=== PATIENT | male | born 1960 | race Caucasian/White ===

== ENCOUNTER 2017-06-19 09:58 | Observation (INO) | payer BC, OTHER ==
--- NOTE | 2017-06-19 10:16 | PDOC ---
History of Present Illness <Bright Black - Last Filed: 06/19/17 16:12> - History of Present Illness Initial Comments: 06/19/17 13:26 Pt presents to the ED complaining of the acute onset of blurry vision and diplopia that began today while shoveling snow. Patient denies shortness of breath but does complain of transient and very mild chest pain that occurred mainly when he was straining to lift large shovelfuls of snow. Diplopia is binocular, but patient reports normal vision from his left eye and blurry vision when only his right eye is open. Also complaining of mild headache that is centered around his right eye. Headache was gradual onset and resolved prior to arrival in the ED. Denies diaphoresis, nausea or vomiting. History of DM, managed with metformin, which he took this morning. <Haylie Block - Last Filed: 06/19/17 16:22> - General Chief Complaint: Blurry Vision Stated Complaint: BLURRED VISION, HEADACHE, CHEST PAIN Time Seen by Provider: 06/19/17 10:16 NIH Stroke Scale - Last Known Well Date/Time & Onset Date Last Known Well: 06/19/17 Time Last Known Well: 13:00 - Initial Evaluation Level of consciousness: Alert Ask patient the month and their age: Answers both correctly Ask patient to open & close eyes; make fist and let go: Obeys both correctly Best gaze (horizontal eye movement): Normal Visual field testing: No visual field loss Facial paresis (Show teeth/raise eyebrows/close eyes tight): Normal symmetrical movement Motor Function: Left Arm: Normal Motor Function: Right Arm: Normal (extends arm 90 (or 45) degrees for 10 seconds without drift Motor Function: Left Leg: Normal (extends leg 30 degrees for 5 seconds without drift) Motor Function: Right Leg: Normal (extends leg 30 degrees for 5 seconds without drift) Limb Ataxia: No ataxia Sensory(Use pinprick test arms,legs,trunk,face/side to side): Normal Best language (Describe picture, name items, read sentences): No Aphasia Dysarthria (read several words): Normal articulation Extinction and Inattention: No abnormality - Total Score NIH Stroke Scale Score: 0 <Haylie Block - Last Filed: 06/19/17 16:22> Past History <Bright Black - Last Filed: 06/19/17 16:12> - Past Medical History COPD: No Diabetes: Yes HTN: Yes Hypercholesterolemia: Yes - Surgical History Abdominal Surgery: Yes (ABD, INGUINAL HERNIA REPAIR) - Suicide/Smoking/Psychosocial Hx Smoking Status: No Smoking History: Never smoked Have you smoked in the past 12 months: No Number of Cigarettes Smoked Daily: 0 Hx Alcohol Use: (rare) Drug/Substance Use Hx: No Substance Use Type: Alcohol Hx Substance Use Treatment: No <Haylie Block - Last Filed: 06/19/17 16:22> - Past Medical History Allergies/Adverse Reactions: Allergies Allergy/AdvReac Type Severity Reaction Status Date / Time No Known Allergies Allergy Verified 06/19/17 10:00 Home Medications: Ambulatory Orders Fenofibrate Nanocrystallized [Tricor] 145 mg PO DAILY 01/24/12 Amlodipine Besylate [Norvasc -] 10 mg PO DAILY #0 tablet 01/26/12 Glipizide [Glucotrol -] 10 mg PO DAILY@0700 #30 tablet 01/26/12 Metformin HCl [Glucophage -] 1,000 mg PO BIDAC #0 tablet 01/26/12 Ramipril [Altace] 10 mg PO DAILY #0 capsule 01/26/12 Rosuvastatin Calcium [Crestor] 20 mg PO HS #0 tablet 01/26/12 Candesartan Cilexetil [Atacand -] 16 mg PO DAILY 06/19/17 Review of Systems - Review of Systems Constitutional: No: Symptoms Reported, See HPI, Chills, Diaphoresis, Fever, Loss of Appetite, Malaise, Night Sweats, Weakness, Weight Stable, Unintentional Wgt. Loss, Unexplained wgt Loss, Other HEENTM: Yes: Blurred Vision, Double Vision. No: Symptoms Reported, See HPI, Eye Pain, Tearing, Recent change in vision, Cataracts, Ear Pain, Ocular Prothesis, Ear Discharge, Nose Pain, Nose Congestion, Tinnitus, Nose Bleeding, Hearing Loss, Throat Pain, Throat Swelling, Mouth Pain, Dental Problems, Difficulty Swallowing, Mouth Swelling, Other Respiratory: No: Symptoms reported, See HPI, Cough, Orthopnea, Shortness of Breath, SOB with Exertion, SOB at Rest, Stridor, Wheezing, Productive cough, Hemoptysis, Other Cardiac (ROS): Yes: Chest Pain ABD/GI: No: Symptoms Reported, See HPI, Abdominal Distended, Abd. Pain w/ defecation, Blood Streaked Bowels, Constipated, Diarrhea, Difficulty Swallowing , Nausea, Poor Appetite, Poor Fluid Intake, Rectal Bleeding, Vomiting, Indigestion, Abdominal cramping, Tarry Stools, Other Musculoskeletal: No: Symptoms Reported, See HPI, Back Pain, Gout, Joint Pain, Joint Swelling, Muscle Pain, Muscle Weakness, Neck Pain, Joint Stiffness, Other All Other Systems: Reviewed and Negative <Haylie Block - Last Filed: 06/19/17 16:22> *Physical Exam - Vital Signs Last Vital Signs Temp Pulse Resp BP Pulse Ox 98.8 F 89 18 150/88 99 06/19/17 09:58 06/19/17 09:58 06/19/17 09:58 06/19/17 09:58 06/19/17 09:58 <Bright Black - Last Filed: 06/19/17 16:12> - Vital Signs Last Vital Signs Temp Pulse Resp BP Pulse Ox 98.8 F 89 18 150/88 99 06/19/17 09:58 06/19/17 09:58 06/19/17 09:58 06/19/17 09:58 06/19/17 09:58 - Physical Exam General Appearance: Yes: Nourished. No: Appropriately Dressed, Apparent Distress, Disheveled, Mild Distress, Moderate Distress, Severe Distress, Alcohol on Breath, Intoxicated, Cachetic, Obese, Thin, Other HEENT: positive: Normal ENT Inspection, Normal Voice Neck: negative: Tender, Trachea midline, Normal Thyroid, Rigid, Supple, Carotid bruit, Decreased range of motion, Stridor, Lymphadenopathy (R), Lymphadenopathy (L), Rigidity, Tender lateral, Tender midline, Thyromegaly, Other Respiratory/Chest: negative: Chest Tender, Lungs Clear, Normal Breath Sounds, Respiratory Distress, Accessory Muscle Use, Labored Respiration, Rapid RR, Decreased Breath Sounds, Paradoxal Breathing, Crackles, Rales, Rhonchi, Stridor , Wheezing, Hyperresonant, Dullness, Plerual Rub, Other Cardiovascular: positive: Regular Rhythm, Regular Rate, S1, S2 Gastrointestinal/Abdominal: positive: Normal Bowel Sounds, Flat, Soft Integumentary: positive: Normal Color, Dry, Warm Neurologic: positive: [employer] II-XII NML intact, Fully Oriented, Alert, Normal Mood/ Affect, Motor Strength 5/5. negative: Normal Response, Abnormal Cranial NS, Respond to painful stimul, Responsive, EOM Palsy (normal extraoccular movements. visual vernon intact to confrontation.), Facial Droop, Numbness, Sensory Deficit, Finger to Nose, Confused, Disoriented, Depressed Affect, Babinski, Other <Haylie Block - Last Filed: 06/19/17 16:22> ED Treatment Course - LABORATORY CBC & Chemistry Diagram: 06/19/17 10:25 06/19/17 10:10 - ADDITIONAL ORDERS Additional order review: Laboratory Results 06/19/17 06/19/17 14:20 10:10 Sodium 128 L Potassium 3.3 L Chloride 96 L Carbon Dioxide 20 L Anion Gap 12 BUN 17 Creatinine 0.9 Creat Clearance w eGFR > 60 Random Glucose 359 H* Calcium 9.1 Total Bilirubin 0.5 AST 27 ALT 38 Alkaline Phosphatase 44 Creatine Kinase 87 89 Troponin I < 0.03 L < 0.03 L Total Protein 7.1 Albumin 3.7 06/19/17 10:25 RBC 5.10 MCV 87.2 MCHC 33.7 RDW 11.8 L MPV 7.4 L Neutrophils % 64.4 Lymphocytes % 26.9 Monocytes % 5.8 Eosinophils % 2.3 Basophils % 0.6 - RADIOLOGY Radiograph Interpretation: 06/19/17 16:11 EXAM#: TYPE/EXAM: RESULT: [id number] RAD/CHEST PA LAT Chest: Chest pain. Shortness of breath Imaging reveals degenerative changes with wedging, and upper lobe granuloma, normal mediastinum and sharp angles. The lungs are clear. An acute chest process is not seen. The soft tissues are intact. Impression: No acute pathology. No significant change since 01/24/2012. Reported By: Andrea Garcia MD 06/19/17 16:12 EXAM#: TYPE/EXAM: RESULT: [id number] CT/HEAD CT WITHOUT CONTRAST Cranial CT without contrast Clinical information: acute diplopia, headache No CT evidence of intracranial hemorrhage. There is no discrete infarct within the limitations of CT. No gross mass lesion is noted. There is no extra-axial fluid collection. The ventricles and cisterns appear unremarkable. No calvarial defect is noted. The partially imaged paranasal sinuses demonstrate no opacification. Impression: No CT evidence of acute intracranial pathology. Reported By: Zhang Ríos MD - Medications Given in the ED: ED Medications Discontinued Medications Generic Name Dose Route Start Last Admin Trade Name Dave PRN Reason Stop Dose Admin Sodium Chloride 1,000 ml 06/19/17 10:57 06/19/17 11:10 Normal Saline - IV 06/19/17 10:58 1,000 ml ONCE ONE Administration Sodium Chloride 1,000 ml 06/19/17 13:00 06/19/17 13:00 Normal Saline - IV 06/19/17 13:01 1,000 ml ONCE ONE Administration <Bright Black - Last Filed: 06/19/17 16:12> - LABORATORY CBC & Chemistry Diagram: 06/19/17 10:25 06/19/17 10:10 <aHylie Block - Last Filed: 06/19/17 16:22> Medical Decision Making - Medical Decision Making 06/19/17 15:16 Page sent to at 2:10 pm. Paged returned by Dr. Allen at 2:38 pm. <Bright Black - Last Filed: 06/19/17 16:12> - Medical Decision Making 06/19/17 13:42 Pt presents to the ED complaining of new onset blurry vision. Patient reports that he needs glassess, which he does not have with him. very brief episode of atypical chest pain that resolved prior to arrival. EKG shows no evidence of ischemia, initial troponin negative, will obtain second set to rule out ACS. Labs show hyperglycemia, but are otherwise unremarkable. Corrected Na is normal. CT head performed to rule out intracrainal lesions and is negative. Blurry vision may be secondary to the patient's need for glasses, since extraoccular movments and visual vernon are intact. PAtient has ophtho follow up tomorrow. Will discharge home when normoglycemic if second set is negative. 06/19/17 14:14 Patient reassessed. Now is complaining of blurry vision, but denies diplopia. Tells me that he has optho follow up tomorrow at 1:30. Also states that he has always had decreased visual acuity in that eye, but today it is worse than usual. Patient is closing his left eye when he talks to me and feels uncomfortable when he looks at me with both eyes. <Haylie Block - Last Filed: 06/19/17 16:22> *DC/Admit/Observation/Transfer - Attestations Scribe Attestion: 06/19/17 15:17 Documentation prepared by Bright Black, acting as medical art therapist for Haylie Block MD. <Bright Black - Last Filed: 06/19/17 16:12> - Discharge Dispostion Admit: Yes <Haylie Block - Last Filed: 06/19/17 16:22> Diagnosis at time of Disposition: Diplopia - Discharge Dispostion Condition at time of disposition: Good
[2017-06-19 10:33] LABS: BASOPHIL 0.6 % (0-2.0); EOSINOPHIL 2.3 % (0-4.5); MCH 29.4 pg (25.7-33.7); MCHC 33.7 g/dl (32.0-35.9); MEAN CELL VOLUME 87.2 fl (80-96); MEAN PLT VOLUME 7.4 fl (7.5-11.1); NEUTROPHILS 64.4 % (42.8-82.8); PLATELET COUNT 294 K/MM3 (134-434); RDW 11.8 % (11.9-15.9); WHITE BLOOD COUNT 7.8 K/mm3 (4.0-10.8)
[2017-06-19 10:55] LABS: ALBUMIN 3.7 g/dl (3.5-5.0); ALK PHOS 44 U/L (32-92); ANION GAP 12 (8-16); BILIRUBIN,TOTAL 0.5 mg/dl (0.2-1.0); CALCIUM 9.1 mg/dl (8.4-10.2); CO2 20 mmol/L (22-28); CPK 89 IU/L (39-308); CREATININE 0.9 mg/dl (0.6-1.3); SGOT/AST 27 U/L (10-42); SGPT/ALT 38 U/L (10-40); TOT PROT 7.1 g/dl (6.4-8.3)
[2017-06-19 10:57] LABS: GLUCOSE,RANDOM 359 mg/dl (74-106)
[2017-06-19] MEDS ORDERED: SODIUM CHLORIDE 0.9% 1000 ML INFUS.BAG IV ONE ×2 (10:57→13:00)
[2017-06-19 11:00] LABS: TROPONIN I (DFP) < 0.03 ng/ml (0.03-0.50)
[2017-06-19] MEDS ORDERED: HEMOQUE TEST 1 EACH EACH ONE ×4 (12:40→16:43)
[2017-06-19] MEDS ORDERED: HEMOQUE CONTROL SOLUTION ONE (12:42)
[2017-06-19 14:46] LABS: CPK 87 IU/L (39-308)
[2017-06-19 14:56] LABS: TROPONIN I (DFP) < 0.03 ng/ml (0.03-0.50)
[2017-06-19] MEDS ORDERED: POTASSIUM CHLORIDE TABS 20 MEQ TABLET.ER (FP) PO ONE ×2 (15:31→15:35)
[2017-06-19 17:30] VITALS: BMI 32.9
--- NOTE | 2017-06-19 19:35 | HP ---
Admitting History and Physical - Admission Chief Complaint: L- Eye Double Vision History of Present Illness: This is a 57 year old man with a past medical history of HTN, HLD, DM. Who presents to the ED with double, blurred vision to L- eye since am. Patient reports while getting ready for work he began to notice his vision was "distorted" and that he could not focus. Patient does wear prescription lenses. Patient denies facial droop, slurred speech, weakness or numbness. Patient denies fever, chills, cough, dizziness, BELTRAN, CP, AP, N/V/D, constipation. History Source: Patient Limitations to Obtaining History: No Limitations - Past Medical History Cardiovascular: Yes: HTN, Hyperlipdemia Endocrine: Yes: Diabetes Mellitus - Past Surgical History Past Surgical History: Yes: Hernia Repair - Smoking History Smoking history: Never smoked Have you smoked in the past 12 months: No Aproximately how many cigarettes per day: 0 - Alcohol/Substance Use Hx Alcohol Use: Yes (social) History of Substance Use: reports: None - Social History Usual Living Arrangement: Yes: With Spouse ADL: Independent Occupation: Maintenance History of Recent Travel: Yes ([facility]) Home Medications - Allergies Allergies/Adverse Reactions: Allergies Allergy/AdvReac Type Severity Reaction Status Date / Time shellfish derived Allergy Intermediate Itching Verified 06/19/17 17:35 - Home Medications Home Medications: Ambulatory Orders Fenofibrate Nanocrystallized [Tricor] 145 mg PO DAILY 01/24/12 Amlodipine Besylate [Norvasc -] 10 mg PO DAILY #0 tablet 01/26/12 Glipizide [Glucotrol -] 10 mg PO DAILY@0700 #30 tablet 01/26/12 Metformin HCl [Glucophage -] 1,000 mg PO BIDAC #0 tablet 01/26/12 Ramipril [Altace] 10 mg PO DAILY #0 capsule 01/26/12 Rosuvastatin Calcium [Crestor] 20 mg PO HS #0 tablet 01/26/12 Candesartan Cilexetil [Atacand -] 16 mg PO DAILY 06/19/17 Home Medications (free text): Fenofibrate (Tricor) 145mg po Daily. Amlodipine Besylate (Norvasc) 10mg po QD. Glipizide (Glucotrol) 10mg po QD. Metformin ( glucophage) 1000mg po BID. Ramipril (Altace) 10mg po QD Family Disease History - Family Disease History Family Disease History: Diabetes: Father, Other: Mother (Hypothyroidism) Review of Systems - Review of Systems Constitutional: reports: No Symptoms Eyes: reports: Blurred Vision, Double Vision (Left Eye) HENT: reports: No Symptoms Neck: reports: No Symptoms Cardiovascular: reports: Chest Pain (Left chest wall) Respiratory: reports: No Symptoms Gastrointestinal: reports: No Symptoms Genitourinary: reports: No Symptoms Musculoskeletal: reports: No Symptoms Integumentary: reports: No Symptoms Neurological: reports: Headache Endocrine: reports: No Symptoms Hematology/Lymphatic: reports: No Symptoms Psychiatric: reports: No Symptoms Physical Examination Vital Signs: Vital Signs Temperature 97.5 F L 06/19/17 18:25 Pulse Rate 73 06/19/17 18:25 Respiratory Rate 18 06/19/17 18:25 Blood Pressure 149/86 06/19/17 18:25 O2 Sat by Pulse Oximetry (%) 99 06/19/17 18:25 Constitutional: Yes: Well Nourished, No Distress, Calm Eyes: Yes: Conjunctiva Clear, EOM Intact, Diplopia (Left eye), PERRL HENT: Yes: WNL, Atraumatic, Normocephalic Neck: Yes: WNL, Supple, Trachea Midline Cardiovascular: Yes: WNL, Regular Rate and Rhythm, S1, S2 Respiratory: Yes: WNL, Regular, CTA Bilaterally Gastrointestinal: Yes: Normal Bowel Sounds, Soft, Abdomen, Obese Renal/: Yes: WNL Musculoskeletal: Yes: WNL Extremities: Yes: WNL Edema: No Peripheral Pulses WNL: Yes Integumentary: Yes: WNL Neurological: Yes: WNL, Alert, Oriented, Cran Nerves II-XII Intact, Other (Heel to Martin test intact). No: Facial Droop, Numbness, Paresthesia, Weakness ...Motor Strength: WNL Psychiatric: Yes: WNL, Alert, Oriented Labs: CBC, BMP 06/19/17 10:25 06/19/17 10:10 Troponin, BNP 06/19/17 06/19/17 06/19/17 10:10 14:20 21:00 Troponin I < 0.03 L < 0.03 L < 0.03 L Intake & Output 06/17/17 06/18/17 06/19/17 06/20/17 23:59 23:59 23:59 23:59 Intake Total 600 Balance 600 Weight 84.368 kg Imaging - Results Chest X-ray: Report Reviewed Cat Scan: Report Reviewed EKG: Image Reviewed Problem List - Problems (1) Diplopia Code(s): H53.2 - DIPLOPIA (2) Diabetes mellitus Code(s): E11.9 - TYPE 2 DIABETES MELLITUS WITHOUT COMPLICATIONS (3) HTN (hypertension) Code(s): I10 - ESSENTIAL (PRIMARY) HYPERTENSION (4) HLD (hyperlipidemia) Code(s): E78.5 - HYPERLIPIDEMIA, UNSPECIFIED (5) DVT prophylaxis Code(s): IAI1174 - Assessment/Plan Patient is a 57 y/o man with a past medical history of HTN, HLD, DM. Placed in Tele Observation for Diplopia r/o CVA. Plan: 1. Neuro: Diplopia - r/o CVA - NIHSS 0 - CT Head- no ICH, mass or lesion - On exam: no focal deficits - Appreciate Neurology Consult - MRI Brain tomorrow - Neuro checks - Fall Precautions - Monitor vitals 2. Cardiology: Chest Pain Hypertension HLD Hyponatremia - Continue Cardiac monitoring - HEART Score 3 - Serial Enzymes - Monitor BP - Continue Norvasc, Ramipril, Tricor - Monitor renal function, LFTs - Given NS for Na repletion - Na corrected 130 - BMP now 3. Endocrine: Diabetes Mellitus - Uncontrolled - BGMs - ISS - HgbA1c in am - RD Consult - f/u with Endocrinology outpatient 4. FEN - Replete lytes prn - Low Na, Diabetic Diet 5. DVT Prophylaxis - OOB - SCDs Code Status: Full Code Dispo: Tele Observation Visit type - Emergency Visit Emergency Visit: Yes ED Registration Date: 06/19/17 Care time: The patient presented to the Emergency Department on the above date and was hospitalized for further evaluation of their emergent condition. - New Patient This patient is new to me today: Yes Date on this admission: 06/19/17 - Critical Care Critical Care patient: No
[2017-06-19] MEDS ORDERED: SODIUM CHLORIDE 1,000 ML IV SCH (20:15)
[2017-06-19 21:51] LABS: CREATININE 0.7 mg/dl (0.6-1.3); GLUCOSE,RANDOM 245 mg/dl (74-106)
[2017-06-19 21:52] LABS: ANION GAP 9 (8-16); CALCIUM 8.9 mg/dl (8.4-10.2); CO2 24 mmol/L (22-28)
[2017-06-20] MEDS: INSULIN SLIDING SCALE (NOVOLOG) 1 VIAL SQ SCH ×2 (06:37→16:55)
--- NOTE | 2017-06-20 08:01 | PN ---
Physical Exam: SUBJECTIVE: Patient seen and examined, reports slight improvement in double vision of the left eye, denies any headache, chest pain or shortness of breath. OBJECTIVE: Patient is a 57 year old man with a past medical history of HTN, HLD, and NIDDM. Patient was admitted from the emergency department for observation for r /o TIA. Vital Signs Period Temp Pulse Resp BP Sys/Wynne Pulse Ox Last 24 Hr 97.5 F-98.9 F 63-89 16-18 111-150/63-88 97-100 GENERAL: The patient is awake, alert, and fully oriented, in no acute distress. HEAD: Normal with no signs of trauma. EYES: PERRL, extraocular movements intact, sclera anicteric, conjunctiva clear. No ptosis. ENT: Ears normal, nares patent, oropharynx clear without exudates, moist mucous membranes. NECK: Trachea midline, full range of motion, supple. LUNGS: Breath sounds equal, clear to auscultation bilaterally, no wheezes, no crackles, no accessory muscle use. HEART: Regular rate and rhythm, S1, S2 without murmur, rub or gallop. ABDOMEN: Soft, nontender, nondistended, normoactive bowel sounds, no guarding, no rebound, no hepatosplenomegaly, no masses. EXTREMITIES: 2+ pulses, warm, well-perfused, no edema. NEUROLOGICAL: Cranial nerves II through XII grossly intact. Normal speech, gait not observed. PSYCH: Normal mood, normal affect. SKIN: Warm, dry, normal turgor, no rashes or lesions noted Laboratory Results - last 24 hr CBC WBC 7.2 K/mm3 (4.0-10.8) 06/20/17 07:38 RBC 5.01 M/mm3 (4.00-5.60) 06/20/17 07:38 Hgb 14.9 GM/dl (11.7-16.9) 06/20/17 07:38 Hct 43.4 % (35.4-49) 06/20/17 07:38 MCV 86.8 fl (80-96) 06/20/17 07:38 MCH 29.8 pg (25.7-33.7) 06/20/17 07:38 MCHC 34.3 g/dl (32.0-35.9) 06/20/17 07:38 RDW 11.6 % (11.9-15.9) L 06/20/17 07:38 Plt Count 286 K/MM3 (134-434) 06/20/17 07:38 MPV 7.7 fl (7.5-11.1) 06/20/17 07:38 Neutrophils % 58.9 % (42.8-82.8) 06/20/17 07:38 Lymphocytes % 29.4 % (8-40) 06/20/17 07:38 Monocytes % 7.6 % (3.8-10.2) 06/20/17 07:38 Eosinophils % 3.2 % (0-4.5) 06/20/17 07:38 Basophils % 0.9 % (0-2.0) 06/20/17 07:38 CMP Sodium 136 mmol/L (136-145) 06/20/17 07:38 Potassium 3.6 mmol/L (3.5-5.1) 06/20/17 07:38 Chloride 103 mmol/L (98-107) 06/20/17 07:38 Carbon Dioxide 27 mmol/L (22-28) 06/20/17 07:38 Anion Gap 6 (8-16) L 06/20/17 07:38 BUN 10 mg/dl (7-18) 06/20/17 07:38 Creatinine 0.6 mg/dl (0.6-1.3) 06/20/17 07:38 Creat Clearance w eGFR > 60 (>60) 06/19/17 10:10 POC Glucometer 205 UNITS (80-120) 06/20/17 05:44 Random Glucose 201 mg/dl (74-106) H 06/20/17 07:38 Calcium 9.0 mg/dl (8.4-10.2) 06/20/17 07:38 Total Bilirubin 0.5 mg/dl (0.2-1.0) 06/19/17 10:10 AST 27 U/L (10-42) 06/19/17 10:10 ALT 38 U/L (10-40) 06/19/17 10:10 Alkaline Phosphatase 44 U/L (32-92) 06/19/17 10:10 Creatine Kinase 87 IU/L (39-308) 06/19/17 14:20 Troponin I < 0.03 ng/ml (0.03-0.50) L 06/19/17 21:00 Total Protein 7.1 g/dl (6.4-8.3) 06/19/17 10:10 Albumin 3.7 g/dl (3.5-5.0) 06/19/17 10:10 Triglycerides 273 mg/dl (35-160) H 06/20/17 07:38 Cholesterol 230 mg/dl 06/20/17 07:38 Total LDL Cholesterol 133 mg/dl 06/20/17 07:38 HDL Cholesterol 42 mg/dl (29-89) 06/20/17 07:38 TSH 1.84 uIU/ml (0.358-3.74) 06/20/17 07:30 Active Medications Generic Name Dose Route Start Last Admin Trade Name Freq PRN Reason Stop Dose Admin Amlodipine Besylate 10 mg 06/20/17 10:00 06/20/17 09:34 Norvasc - PO 10 mg DAILY REJI Administration Aspirin 81 mg 06/20/17 12:00 Asa - PO DAILY REJI Fenofibric Acid 135 mg 06/20/17 10:00 06/20/17 09:34 Trilipix - PO 135 mg DAILY REJI Administration Glipizide 10 mg 06/21/17 07:00 Glucotrol - PO DAILY@0700 [facility] Insulin Aspart 1 vial 06/20/17 07:00 06/20/17 06:37 Novolog Vial Sliding Scale - SQ 4 units BIDAC REJI Administration Protocol Metformin HCl 1,000 mg 06/20/17 16:30 Glucophage - PO BIDAC REJI Ramipril 10 mg 06/20/17 10:00 06/20/17 09:34 Altace - PO 10 mg DAILY REJI Administration Rosuvastatin Calcium 20 mg 06/20/17 22:00 Crestor - PO HS REJI IMAGING ct of head: no mass or lesion carotid dopplers: no evidence of hemodynamic significant stenosis, right thyroid mass or lesion measuring 1.3 x 1cm ASSESSMENT/PLAN: 1. Neuro: r/o CVA - ct of head reviewed, pending MRI of brain - pending echo - carotid dopplers noted - continue neuro checks - appreciate neurology input 2) cardiovascular hypertension - troponin x 3 wnl - no events noted on cardiac monitoring - continue norvasc and altace, b/p at goal hyperlidemia - continue tricor and crestor 3) Endocrine: Diabetes Mellitus - continue metformin and glipizide - questionable lesion noted on thyroid, 4. FEN - Replete lytes prn - Low Na, Diabetic Diet 5. DVT Prophylaxis - OOB - SCDs Code Status: Full Code Dispo: Tele Observation Visit type - Emergency Visit Emergency Visit: Yes ED Registration Date: 06/19/17 Care time: The patient presented to the Emergency Department on the above date and was hospitalized for further evaluation of their emergent condition. - New Patient This patient is new to me today: Yes Date on this admission: 06/20/17 - Critical Care Critical Care patient: No - Discharge Referral Referred to [facility] Med [facility] No
[2017-06-20 08:57] LABS: ANION GAP 6 (8-16); CHOLESTEROL 230 mg/dl; CO2 27 mmol/L (22-28); CREATININE 0.6 mg/dl (0.6-1.3); GLUCOSE,RANDOM 201 mg/dl (74-106)
[2017-06-20 09:13] LABS: BASOPHIL 0.9 % (0-2.0); EOSINOPHIL 3.2 % (0-4.5); MCH 29.8 pg (25.7-33.7); MCHC 34.3 g/dl (32.0-35.9); MEAN CELL VOLUME 86.8 fl (80-96); MEAN PLT VOLUME 7.7 fl (7.5-11.1); NEUTROPHILS 58.9 % (42.8-82.8); PLATELET COUNT 286 K/MM3 (134-434); RDW 11.6 % (11.9-15.9); WHITE BLOOD COUNT 7.2 K/mm3 (4.0-10.8)
[2017-06-20] MEDS: FENOFIBRIC ACID 135 MG CAP PO SCH (09:34)
[2017-06-20] MEDS: RAMIPRIL 5 MG CAPSULE (FP) PO SCH (09:34)
[2017-06-20] MEDS: amLODIPine BESYLATE 10 MG TABLET (FP) PO SCH (09:34)
[2017-06-20 11:22] LABS: THYROXINE (T4) 9.2 ug/dl (4.5-12.1)
[2017-06-20 11:28] LABS: THYROID STIMULATING HORMONE 1.84 uIU/ml (0.358-3.74)
[2017-06-20] MEDS: ASPIRIN 81 MG CHEWABLE TABLETS PO SCH ×2 (12:49→13:31)
[2017-06-20] MEDS ORDERED: INSULIN (NOVOLOG) ASPART 100 UNITS/ML 10ML VIAL ONE ×2 (16:50→17:00)
[2017-06-20] MEDS: metFORMIN HCL 500 MG TABLET (FP) PO SCH (16:55)
--- NOTE | 2017-06-20 17:08 | EKG ---
Test Reason : Blood Pressure : / mmHG Vent. Rate : 085 BPM Atrial Rate : 085 BPM P-R Int : 138 ms QRS Dur : 082 ms QT Int : 382 ms P-R-T Axes : 023 -33 021 degrees QTc Int : 454 ms NORMAL SINUS RHYTHM LEFT AXIS DEVIATION WHEN COMPARED WITH ECG OF 24-JAN-2012 14:13, NONSPECIFIC T WAVE ABNORMALITY HAS REPLACED INVERTED T WAVES IN INFERIOR LEADS Confirmed by MD ELKIN, MACK ([id number]) on 06/20/2017 5:08:25 PM Referred By: JESUS Confirmed By:MACK GRANGER MD
--- NOTE | 2017-06-20 17:39 | CON.NEURO ---
Consult - Past Medical History Cardio/Vascular: Yes: HTN, Hyperlipdemia Endocrine: Yes: Diabetes Mellitus - Past Surgical History Past Surgical History: Yes: Hernia Repair - Alcohol/Substance Use Hx Alcohol Use: Yes (social) History of Substance Use: reports: None - Smoking History Smoking history: Never smoked Have you smoked in the past 12 months: No Aproximately how many cigarettes per day: 0 - Social History ADL: Independent Occupation: Maintenance History of Recent Travel: Yes ([place]) Home Medications - Allergies Allergies/Adverse Reactions: Allergies Allergy/AdvReac Type Severity Reaction Status Date / Time shellfish derived Allergy Intermediate Itching Verified 06/19/17 17:35 - Home Medications Home Medications: Ambulatory Orders Fenofibrate Nanocrystallized [Tricor] 145 mg PO DAILY 01/24/12 Amlodipine Besylate [Norvasc -] 10 mg PO DAILY #0 tablet 01/26/12 Glipizide [Glucotrol -] 10 mg PO DAILY@0700 #30 tablet 01/26/12 Metformin HCl [Glucophage -] 1,000 mg PO BIDAC #0 tablet 01/26/12 Ramipril [Altace] 10 mg PO DAILY #0 capsule 01/26/12 Rosuvastatin Calcium [Crestor] 20 mg PO HS #0 tablet 01/26/12 Candesartan Cilexetil [Atacand -] 16 mg PO DAILY 06/19/17 Family Disease History - Family Disease History Family Disease History: Diabetes: Father, Other: Mother (Hypothyroidism) Physical Exam-Neuro Vital Signs: Vital Signs Temperature 98.1 F 06/20/17 14:35 Pulse Rate 65 06/20/17 14:35 Respiratory Rate 16 06/20/17 14:35 Blood Pressure 106/60 06/20/17 14:35 O2 Sat by Pulse Oximetry (%) 98 06/20/17 14:35 Labs: CBC, BMP 06/20/17 07:38 06/20/17 07:38 Assessment/Plan cc blur vision for one days HPI 57 year old male history of DM,HTN came with double vision and blurring of vision. He felt images are distorted and he is seeing blurring vision and double vision when he uses both eye specially on right side . He denies any headache, dysphagia dysarthria diplopia, no motor weakness or sensory .oss Past Medical History as above SH, FH, ROS is normal. - Allergies Allergies/Adverse Reactions: Allergies Allergy/AdvReac Type Severity Reaction Status Date / Time shellfish derived Allergy Intermediate Itching Verified 06/19/17 17:35 - Home Medications Fenofibrate Nanocrystallized [Tricor] 145 mg PO DAILY 01/24/12 Amlodipine Besylate [Norvasc -] 10 mg PO DAILY #0 tablet 01/26/12 Glipizide [Glucotrol -] 10 mg PO DAILY@0700 #30 tablet 01/26/12 Metformin HCl [Glucophage -] 1,000 mg PO BIDAC #0 tablet 01/26/12 Ramipril [Altace] 10 mg PO DAILY #0 capsule 01/26/12 Rosuvastatin Calcium [Crestor] 20 mg PO HS #0 tablet 01/26/12 Candesartan Cilexetil [Atacand -] 16 mg PO DAILY 06/19/17 Neurological Examination Alert oriented x 3 CN all intact, pupils is reactive, there is sligth restriciton of right lateral movement of right eye slightly restricted motor all normal sensation is normal reflex are symmetrical ct head, mri of brain is normal carotid ultrasound is normal Assessment- Partial right sixth nerve palsy , most likley ischemic lesion Plan suggest to [facility] to plavix from aspirin continue statin follow up with eye doctor follow up with neurologist outpatient thanks for consult Allen Allen MD
[2017-06-20] MEDS: CLOPIDOGREL BISULFATE 75 MG TABLET (FP) PO SCH (18:10)
[2017-06-20] MEDS ORDERED: ROSUVASTATIN CA 20 MG TABLET (FP) PO SCH (22:00)
[2017-06-21] MEDS: metFORMIN HCL 500 MG TABLET (FP) PO SCH (06:06)
[2017-06-21 06:39] VITALS: BP 114/72; PULSE 55; TEMP 97.8
[2017-06-21] MEDS: INSULIN SLIDING SCALE (NOVOLOG) 1 VIAL SQ SCH (06:40)
[2017-06-21] MEDS ORDERED: glipiZIDE 5 MG TABLET (FP) PO SCH (07:00)
--- NOTE | 2017-06-21 08:35 | DS ---
Physical Exam: SUBJECTIVE: Patient seen and examined, reports feeling much improved, denies any headache or blurred vision. OBJECTIVE: This is a 57 year old man with a past medical history of HTN, HLD, DM. Who presents to the ED with double, blurred vision to L- eye since am. Patient reports while getting ready for work he began to notice his vision was "distorted" and that he could not focus. Patient does wear prescription lenses. Patient denies facial droop, slurred speech, weakness or numbness. Patient denies fever, chills, cough, dizziness, BELTRAN, CP, AP, N/V/D, constipation. Vital Signs Period Temp Pulse Resp BP Sys/Wynne Pulse Ox Last 24 Hr 97.5 F-98.1 F 55-65 16-18 103-123/52-72 97-100 PHYSICAL EXAM GENERAL: The patient is awake, alert, and fully oriented, in no acute distress. HEAD: Normal with no signs of trauma. EYES: PERRL, extraocular movements intact, sclera anicteric, conjunctiva clear. ENT: Ears normal, nares patent, oropharynx clear without exudates, moist mucous membranes. NECK: Trachea midline, full range of motion, supple. LUNGS: Breath sounds equal, clear to auscultation bilaterally, no wheezes, no crackles, no accessory muscle use. HEART: Regular rate and rhythm, S1, S2 without murmur, rub or gallop. ABDOMEN: Soft, nontender, nondistended, normoactive bowel sounds, no guarding, no rebound, no hepatosplenomegaly, no masses. EXTREMITIES: 2+ pulses, warm, well-perfused, no edema. NEUROLOGICAL: Cranial nerves II through XII grossly intact. Normal speech, gait not observed. PSYCH: Normal mood, normal affect. SKIN: Warm, dry, normal turgor, no rashes or lesions noted. LABS Laboratory Results - last 24 hr 06/20/17 06/20/17 06/20/17 07:30 07:38 07:38 WBC 7.2 RBC 5.01 Hgb 14.9 Hct 43.4 MCV 86.8 MCH 29.8 MCHC 34.3 RDW 11.6 L Plt Count 286 MPV 7.7 Neutrophils % 58.9 Lymphocytes % 29.4 Monocytes % 7.6 Eosinophils % 3.2 Basophils % 0.9 Sodium 136 Potassium 3.6 Chloride 103 Carbon Dioxide 27 Anion Gap 6 L BUN 10 Creatinine 0.6 POC Glucometer Random Glucose 201 H Calcium 9.0 Triglycerides 273 H Cholesterol 230 Total LDL Cholesterol 133 HDL Cholesterol 42 TSH 1.84 06/20/17 06/21/17 16:53 06:10 WBC RBC Hgb Hct MCV MCH MCHC RDW Plt Count MPV Neutrophils % Lymphocytes % Monocytes % Eosinophils % Basophils % Sodium Potassium Chloride Carbon Dioxide Anion Gap BUN Creatinine POC Glucometer 194 177 Random Glucose Calcium Triglycerides Cholesterol Total LDL Cholesterol HDL Cholesterol TSH IMAGING ct of head: no mass or lesion carotid dopplers: no evidence of hemodynamic significant stenosis, right thyroid mass or lesion measuring 1.3 x 1cm HOSPITAL COURSE: 1. Neuro: r/o CVA - ct of head reviewed, pending MRI of brain - pending echo - carotid dopplers noted - continue neuro checks - appreciate neurology input 2) cardiovascular hypertension - troponin x 3 wnl - no events noted on cardiac monitoring - continue norvasc and altace, b/p at goal hyperlidemia - continue tricor and crestor 3) Endocrine: Diabetes Mellitus - continue metformin and glipizide - questionable lesion noted on thyroid, Date of Admission:06/19/17 Date of Discharge: 06/21/17 Minutes to complete discharge: 45 Discharge Summary Reason For Visit: R/O CVA Current Active Problems DVT prophylaxis (Acute) Diabetes mellitus (Acute) Diplopia (Acute) HLD (hyperlipidemia) (Acute) HTN (hypertension) (Acute) Condition: Good - Instructions Referrals: Allen Allen MD [Staff Physician] - 3 Weeks Florin Reyez MD [Staff Physician] - 2 Weeks Federica Ruiz MD [Staff Physician] - 2 Weeks Yonatan Llamas MD [Staff Physician] - 1 Week Disposition: HOME - Home Medications Comprehensive Discharge Medication List: Ambulatory Orders Fenofibrate Nanocrystallized [Tricor] 145 mg PO DAILY 01/24/12 Amlodipine Besylate [Norvasc -] 10 mg PO DAILY #0 tablet 01/26/12 Glipizide [Glucotrol -] 10 mg PO DAILY@0700 #30 tablet 01/26/12 Metformin HCl [Glucophage -] 1,000 mg PO BIDAC #0 tablet 01/26/12 Ramipril [Altace] 10 mg PO DAILY #0 capsule 01/26/12 Rosuvastatin Calcium [Crestor] 20 mg PO HS #0 tablet 01/26/12 Candesartan Cilexetil [Atacand -] 16 mg PO DAILY 06/19/17 - Discharge Referral Referred to [facility] Med [facility].C.: No
[2017-06-21] MEDS: amLODIPine BESYLATE 10 MG TABLET (FP) PO SCH (10:15)
[2017-06-21] MEDS: RAMIPRIL 5 MG CAPSULE (FP) PO SCH (10:15)
[2017-06-21] MEDS: CLOPIDOGREL BISULFATE 75 MG TABLET (FP) PO SCH (10:15)
[2017-06-21] MEDS: FENOFIBRIC ACID 135 MG CAP PO SCH (10:16)
== END 2017-06-21 12:50 | disposition home or self-care (01) ==
LOC: FER 09:58 → FM/S 16:40
PROVIDERS: ADMIT Hospitalist; ATTEND Nurse Practitioner Family
PROC: 3E013VG Introduction of Insulin into Subcutaneous Tissue, Percutaneous Approach (ICD-10-PCS; principal; 2017-06-19)
DX: H53.2 Diplopia (principal); I10 Essential (primary) hypertension; E78.5 Hyperlipidemia, unspecified; Z79.84 Long term (current) use of oral hypoglycemic drugs; Z79.01 Long term (current) use of anticoagulants
CPT/HCPCS: 36415; 70450-TC; 70551-TC; 71020-TC; 76536-TC; 80048; 80053; 80061; 82550; 83036; 84436; 84443; 84484; 85025; 93005; 93306-TC; 93880-TC; 99285-25; G0378

== ENCOUNTER 2020-02-21 08:53 | Inpatient (IN) | payer BC, OTHER ==
--- NOTE | 2020-02-21 09:04 | PDOC ---
History of Present Illness - General Chief Complaint: Pain, Acute Stated Complaint: R KNEE &FOOT PAIN Time Seen by Provider: 02/21/20 08:57 History Source: Patient Exam Limitations: No Limitations - History of Present Illness Initial Comments: 02/21/20 08:59 59 YOM with h/o NIDDM, HTN, HLD, and gout which normally presents in his knees, on indomethicin and colchicine as prescribed at [facility] on 02/14/20 at which time he was seen for right knee pain. He p/w worsening right knee pain which now has redness and warmth, ongoing for more than a week. He has no orthopedist and has only been seen in for this episode. He notes it is similar to his previously diagnosed gout which was in the same knee, but this is much worse than it has been in the past and it was never red in the past. He has been using a cane to walk (normally does not need a cane) and needed to go on light duty at work and subsequently needed to tell his boss he could not work. Last gout flare in 2012, prior to that was 2005. No f/c/n/v/d/c, chest pain, SOB, abdominal pain, n/t/w focally, or other issues. Past History - Medical History Allergies/Adverse Reactions: Allergies Allergy/AdvReac Type Severity Reaction Status Date / Time No Known Allergies Allergy Unverified 02/21/20 10:07 Home Medications: Ambulatory Orders Atorvastatin Ca [Lipitor] 20 mg PO HS 02/21/20 Cholecalciferol (Vitamin D3) [Vitamin D3] 5,000 unit PO DAILY 02/21/20 Colchicine 0.6 mg PO ASDIR 02/21/20 Enalapril Maleate 2.5 mg PO DAILY 02/21/20 Glimepiride 4 mg PO BID 02/21/20 Indomethacin 50 mg PO Q8H 02/21/20 Metformin HCl [Glucophage] 500 mg PO BID 02/21/20 Anemia: No Asthma: No Cancer: No Cardiac Disorders: No CVA: No COPD: No CHF: No Dementia: No Diabetes: Yes GI Disorders: No Disorders: No HTN: Yes Hypercholesterolemia: Yes Liver Disease: No Seizures: No Thyroid Disease: No - Surgical History Abdominal Surgery: Yes (ABD, INGUINAL HERNIA REPAIR) Appendectomy: No Cardiac Surgery: No Cholecystectomy: No Lung Surgery: No Neurologic Surgery: No Orthopedic Surgery: No - Psycho-Social/Smoking History Smoking Status: No Smoking History: Never smoked Have you smoked in the past 12 months: No Number of Cigarettes Smoked Daily: 0 Review of Systems - Review of Systems Able to Perform ROS?: Yes Comments:: 02/21/20 08:59 GEN: no fever, chills, malaise, or generalized weakness HEENT: no ear pain, congestion, sore throat, vision change, or eye pain CV: no chest pain, palpitations, lightheadedness, or syncope RESP: no SOB, wheezing, or cough GI: no abdominal pain, nausea, vomiting, diarrhea, constipation, or rectal bleed : no dysuria, hematuria, or discharge MSK: right knee pain and swelling, right lower leg swelling NEURO: no headache, vertigo, numbness, tingling, or focal weakness PSYCH: no SI, HI, or behavior change SKIN: right knee redness and warmth, no jaundice, lesions, or unexplained bruises ROS otherwise negative except as noted in HPI *Physical Exam - Physical Exam 02/21/20 09:00 GENERAL: generally well-appearing, very pleasant, Lao first language but very Swedish procifient, A/Ox4, no distress, answers questions appropriately HEENT: PERRLA, EOMI, moist mucous membranes NECK/BACK: no midline ttp, no spinal step-off or deformity, no hematoma, full ROM, neck supple CARDIOVASCULAR: regular rate/rhythm, no MGR, strong peripheral pulses, capillary refill <2 seconds, extremities wwp, RLE 2+ pitting edema distally LUNGS/RESPIRATORY: no respiratory distress, CTAB GI/ABDOMEN: symmetric xoti-ye-weys, normoactive BS, soft, no ttp, no midline pulsatile masses : no CVA tenderness MSK/EXTREMITIES: right knee diffuse anterior tenderness worse around inferior joint line, +effusion with +ballotment, patient states unable to tolerate ROM beyond 10 degrees flexion actively or passively, other than this there is no muscle atrophy, no acute deformity SKIN: [id number] patch of erythema and warmth to anterior inferior right knee with out induration or fluctuance, not circumferential, no streaking erythema, skin is otherwise warm and dry, no pallor, no jaundice, no rash, no pathologic- appearing bruising, no skin breakdown, no cuts, no lesions NEUROLOGICAL: GCS 15, CN II-XII grossly intact, 5/5 strength proximally and distally, no facial droop ED Treatment Course - LABORATORY CBC & Chemistry Diagram: 02/21/20 09:33 02/21/20 09:46 - RADIOLOGY Radiology Studies Ordered: Category Date Time Status KNEE 3 POS-RIGHT [RAD] Stat Radiology 02/21/20 08:57 Ordered DUPLEX VASCUL US-1 LEG [US] Stat Ultrasound 02/21/20 08:57 Ordered Medical Decision Making - Medical Decision Making 02/21/20 09:03 59YOM with h/o gout p/w right knee pain/swelling since last week, now with decreased ROM, painful ambulation requiring cane, and new patch of erythema overlying knee, states worse than prior episodes of gout. Initial Vital Signs Temp Pulse Resp BP Pulse Ox 98.4 F 66 18 127/82 96 02/21/20 08:58 02/21/20 08:58 02/21/20 08:58 02/21/20 08:58 02/21/20 08:58 DDX IBNLT: most likely gout flare however there is concern for cellulitis, prepatellar bursitis, septic arthritis, pseudogout, hemarthrosis, DVT, superf icial venous thrombosis, ruptured popliteal cyst. EKG: Reviewed; results as noted in ECG Review section. Knee XR: Nothing acute Duplex: Nothing acute, no DVT Provider Orders Category Date Time Status Decision to Admit to Hospital Routine Admission 02/21/20 11:06 Ordered EKG [ELECTROCARDIOGRAM] [CARD] Stat Cardiology 02/21/20 11:09 Ordered EKG needed NOW Care 02/21/20 11:09 Ordered Finger Stick [BGM (Blood Glucose Monitoring)] NOW Care 02/21/20 11:07 Ordered Isolation Precautions As directed Care 02/21/20 11:07 Ordered C-REACTIVE PROTEIN Stat Lab 02/21/20 09:46 Results CBC WITH DIFFERENTIAL Stat Lab 02/21/20 09:33 Completed COMP METABOLIC PANEL Stat Lab 02/21/20 09:46 Results COVID-19 Stat Lab 02/21/20 11:07 Uncollected ERYTHROCYTE SEDIMENTATION RATE Stat Lab 02/21/20 09:33 Completed PT/INR (PROTHROMBIN TIME) Stat Lab 02/21/20 09:02 Completed Insulin Regular [NOVOLIN R VIAL *For IVPUSH or IV DRIP Medication 02/21/20 10:18 Discontinued Only*] 1 units .ROUTE .STK-MED ONE Insulin Regular [NOVOLIN R VIAL *For IVPUSH or IV DRIP Medication 02/21/20 10:02 Discontinued Only*] 6 units SQ ONCE ONE Lidocaine 1% [Xylocaine 1%] Medication 02/21/20 11:21 Once 3 ml INF ONCE ONE Sodium Chloride [Normal Saline -] Medication 02/21/20 10:02 Discontinued 1,000 ml IV ONCE ONE BLOOD CULTURE Stat Micro 02/21/20 09:51 Received IV Insert NOW Phy Order 02/21/20 08:57 Active Saline Lock, Insert ONCE Phy Order 02/21/20 09:00 Ordered KNEE 3 POS-RIGHT [RAD] Stat Radiology 02/21/20 08:57 Completed DUPLEX VASCUL US-1 LEG [US] Stat Ultrasound 02/21/20 08:57 Completed Medications Discontinued Medications Generic Name Dose Route Start Last Admin Trade Name Freq PRN Reason Stop Dose Admin Insulin Human Regular 6 units 02/21/20 10:02 02/21/20 10:23 Novolin R Vial *For Ivpush Or Iv Drip Only* SQ 02/21/20 10:03 6 units ONCE ONE Administration Insulin Human Regular Confirm 02/21/20 10:18 Novolin R Vial *For Ivpush Or Iv Drip Only* Administered 02/21/20 10:19 Dose 1 units .ROUTE .STK-MED ONE Lidocaine HCl 3 ml 02/21/20 11:21 Xylocaine 1% INF 02/21/20 11:22 ONCE ONE Sodium Chloride 1,000 ml 02/21/20 10:02 02/21/20 10:23 Normal Saline - IV 02/21/20 10:03 1,000 ml ONCE ONE Administration Lab Results WBC 8.8 K/mm3 (4.0-10.8) 02/21/20 09:33 RBC 4.65 M/mm3 (4.00-5.60) 02/21/20 09:33 Hgb 14.2 GM/dl (11.7-16.9) 02/21/20 09:33 Hct 42.3 % (35.4-49) 02/21/20 09:33 MCV 91.0 fl (80-96) 02/21/20 09:33 MCH 30.6 pg (25.7-33.7) 02/21/20 09:33 MCHC 33.6 g/dl (32.0-35.9) 02/21/20 09:33 RDW 11.3 % (11.9-15.9) L 02/21/20 09:33 Plt Count 465 K/MM3 (134-434) H D 02/21/20 09:33 MPV 7.1 fl (7.5-11.1) L 02/21/20 09:33 Absolute Neuts (auto) 6.0 K/mm3 02/21/20 09:33 Neutrophils % 68.7 % (42.8-82.8) 02/21/20 09:33 Lymphocytes % 21.1 % (8-40) D 02/21/20 09:33 Monocytes % 8.3 % (3.8-10.2) 02/21/20 09:33 Eosinophils % 1.3 % (0-4.5) 02/21/20 09:33 Basophils % 0.6 % (0-2.0) 02/21/20 09:33 ESR 72 mm/hr (0-20) H 02/21/20 09:33 PT with INR 12.6 SEC (10.2-13.0) 02/21/20 09:02 INR 1.13 (0.82-1.09) 02/21/20 09:02 Sodium 128 mmol/L (136-145) L 02/21/20 09:46 Potassium 4.6 mmol/L (3.5-5.1) 02/21/20 09:46 Chloride 95 mmol/L (98-107) L 02/21/20 09:46 Carbon Dioxide 20 mmol/L (21-32) L 02/21/20 09:46 Anion Gap 13 MMOL/L (8-16) 02/21/20 09:46 BUN 13.0 mg/dl (7-18) 02/21/20 09:46 Creatinine 0.6 mg/dl (0.55-1.3) 02/21/20 09:46 Est GFR (CKD-EPI)AfAm 129.36 02/21/20 09:46 Est GFR (CKD-EPI)NonAf 111.61 02/21/20 09:46 Random Glucose 476 mg/dl (74-106) H* 08/13/20 09:46 Calcium 9.2 mg/dl (8.5-10) 02/21/20 09:46 Total Bilirubin 0.7 mg/dl (0.2-1) 02/21/20 09:46 AST 18 U/L (15-37) 02/21/20 09:46 ALT 24 U/L (13-61) 02/21/20 09:46 Alkaline Phosphatase 70 U/L (45-117) 02/21/20 09:46 Total Protein 7.3 g/dl (6.4-8.2) 02/21/20 09:46 Albumin 3.4 g/dl (3.4-5.0) 02/21/20 09:46 ESR is 72 and patient cannot flex knee past 10 degrees, states cannot walk without cane, overlying cellulitis, poorly controlled DM. 02/21/20 10:32 Call placed and spoke with Dr. Hidalgo regarding this patient. He sees the patient in the ED and will follow while inpatient. Consult order placed. Erythematous area is outlined in pen. Patient likely has prepatellar bursitis, much less likely septic arthritis. Per Dr. Hidalgo patient needs warm compresses to the erythematous area/prepatellar bursa on the right multiple times daily. 02/21/20 11:37 I spoke with Rina Sanchez, patient admitted to [facility] Med/Surg, Dr. Le. Discharge - Discharge Information Problems reviewed: Yes Clinical Impression/Diagnosis: Hyperglycemia Prepatellar bursitis Qualifiers: Laterality: right Qualified Code(s): M70.41 - Prepatellar bursitis, right knee Condition: Guarded - Admission Yes - Follow up/Referral - Patient Discharge Instructions - Post Discharge Activity Work/Back to School Note: Back to Work
[2020-02-21 09:35] LABS: BASO % 0.6 % (0-2.0); EOS % 1.3 % (0-4.5); HEMATOCRIT 42.3 % (35.4-49); HEMOGLOBIN 14.2 GM/dl (11.7-16.9); LYMPH % 21.1 % (8-40); MCH 30.6 pg (25.7-33.7); MCHC 33.6 g/dl (32.0-35.9); MEAN PLT VOLUME 7.1 fl (7.5-11.1); MONO % 8.3 % (3.8-10.2); NEUT % 68.7 % (42.8-82.8); PLATELET COUNT 465 K/MM3 (134-434); RBC 4.65 M/mm3 (4.00-5.60); RDW 11.3 % (11.9-15.9); WHITE BLOOD COUNT 8.8 K/mm3 (4.0-10.8)
[2020-02-21 09:48] LABS: INR 1.13 (0.82-1.09); PROTHROMBIN TIME (PATIENT) 12.6 SEC (10.2-13.0)
[2020-02-21 09:54] LABS: ALBUMIN 3.4 g/dl (3.4-5.0); BILIRUBIN,TOTAL 0.7 mg/dl (0.2-1); CALCIUM 9.2 mg/dl (8.5-10); CREATININE 0.6 mg/dl (0.55-1.3); POTASSIUM 4.6 mmol/L (3.5-5.1); TOT PROT 7.3 g/dl (6.4-8.2)
[2020-02-21] MEDS ORDERED: SODIUM CHLORIDE 0.9% 500 ML INFUS.BAG IV ONE (10:02)
[2020-02-21] MEDS ORDERED: INSULIN REGULAR HUMAN 100 UNITS/ML *VIAL SQ ONE (10:02)
[2020-02-21] MEDS ORDERED: INSULIN REGULAR HUMAN 100 UNITS/ML *VIAL ONE (10:18)
[2020-02-21 10:27] LABS: ERYTHROCYTE SEDIMENTATION RATE 72 mm/hr (0-20)
[2020-02-21] MEDS ORDERED: LIDOCAINE HCL 1%, 10 MG/ML (50 mL VIAL) INF ONE (11:21)
[2020-02-21] MEDS ORDERED: LIDOCAINE HCL 1%, 10 MG/ML (20ML VIAL) ONE (11:24)
[2020-02-21] MEDS ORDERED: VANCOMYCIN HCL 1,500 MG in DEXTROSE 5%-WATER - 500 ML IVPB ONE (11:32)
--- NOTE | 2020-02-21 12:02 | CONSULT ---
Consult - text type - Consultation Consultation Note: ORTHOPEDIC SURGERY CONSULTATION NOTE Department of Orthopedic Surgery HISTORY OF PRESENT ILLNESS Mr. Yates is a 59 year old male with h/o NIDDM, HTN, HLD, and gout which normally presents in his knees, on indomethacin and colchicine. Patient states he has run out of his medications. He states he has had worsening right knee pain which now has redness and warmth, ongoing for more than a week. The orthopedic service was consulted for knee bursitis and cellulitis. The patient denies any specific incident causing the pain. The patient notes pain and swelling over the anterior portion of the knee just below the knee cap. Denies any other injuries. Denies numbness, tingling or other constitutional complaints. Denies fever/chills. Denies tobacco use, drug use, alcohol abuse. The patient lives with family and uses no assistive devices at baseline, but is currently using a cane for ambulation due to his pain. FAMILY HISTORY non-contributory REVIEW OF SYMPTOMS A twelve-point review of systems was performed and was negative except as noted in HPI. PHYSICAL EXAM Constitutional: Alert and oriented to person, place, and time. Appears well- developed and well-nourished. No acute distress, appropriate mood and affect. Right Lower Extremity: Skin warm, dry, and intact; Muscle mass equal and symme tric to contralateral side. No atrophy noted. No masses or effusions noted. Tender to palpation just inferior to the patella with erythema consistent with cellulitis; nontender throughout rest of extremity. No cords or calf tenderness; Mild ankle edema. Full passive and active ROM of the hip, ankle, and toes, free from pain. LROM of the knee 0-40 degrees with no pain, and then pain begins after 40 degrees of flexion, secondary to anterior knee pain and swelling; Joints stable with no pathologic laxity. EHL/TA/GS motor intact; SILT distally; 2+ DP pulses; Cap refill brisk. Tone and reflexes normal. Intake & Output 02/19/20 02/20/20 02/21/20 23:59 23:59 23:59 Other: Weight 178 lb Height 5 ft 1 in Body Mass Index (BMI) 33.6 Active Medications Generic Name Dose Route Start Last Admin Trade Name Freq PRN Reason Stop Dose Admin Vancomycin HCl 1,500 mg/ 500 mls @ 250 mls/hr 02/21/20 11:32 Dextrose IVPB 02/21/20 13:31 ONCE ONE Vital Signs (last) Temp Pulse Resp BP Pulse Ox 98.4 F 66 18 127/82 96 02/21/20 08:58 02/21/20 08:58 02/21/20 08:58 02/21/20 08:58 02/21/20 08:58 Laboratory (coagulation) PT with INR 12.6 SEC (10.2-13.0) 02/21/20 09:02 Laboratory 02/21/20 09:33 02/21/20 09:46 IMAGING I personally reviewed all radiographs, CT, and other imaging. They demonstrate no fractures, dislocations, bony lesions, or significant arthrosis of the right knee. ASSESSMENT AND PLAN Mr. Yates is a 59 year old male presenting with right infrapatellar bursitis with cellulitis and history of gout. No signs of septic joint at this time. We have reviewed the imaging and clinical findings in detail, as well as their potential implications. After appropriate informed discussion, we agreed on the following plan: 1. Pain control 2. DVT ppx 3. ID consult / recommend IV Antibiotics 4. Rheumatology consult for gout 5. Patient's cellulitis was marked today, will follow for progression. Warm compresses. 6. No signs of septic joint. Will watch patient's progress on antibiotics. No plan for surgical intervention at this time. 7. Continue medical management All questions were answered. Thank you for involving our team in the care of this patient. We will follow the patient with you. Please call us with questions.
[2020-02-21] MEDS ORDERED: ACETAMINOPHEN 500 MG TABLET (FP) PO ONE (13:30)
[2020-02-21] MEDS ORDERED: ACETAMINOPHEN 325 MG TABLET (FP) ONE (13:30)
--- NOTE | 2020-02-21 14:01 | CON.ID ---
Consult Consult Specialty:: infectious diseases Referred by:: hospitalist Reason for Consultation:: swelling of the rt knee joint,cellulitis of the rt knee joint - History of Present Illness Chief Complaint: swelling and erythema of the rt knee joint History of Present Illness: 59 year-old male with a PMH significant for HTN, HLD, Type II NIDDM, and gout . Patient presented with redness, pain and swelling to his left index finger and right knee x 1 week. His last gout flare was in 2011 and he has been on no preventive medications. He was seen at an urgent care and was prescribed a 3-day course of colchicine and indomethacin which he finished 3 days ago. His symptoms persisted which prompted him to come to the ED today. Denies fever, sweats, chills. Denies any other injuries. patient came here was worked up and imaging studies done patient was seen by ortho - History Source History Provided By: Patient Limitations to Obtaining History: No Limitations - Past Medical History Cardio/Vascular: Yes: HTN, Hyperlipdemia Endocrine: Yes: Diabetes Mellitus - Past Surgical History Past Surgical History: Yes: Hernia Repair - Alcohol/Substance Use Hx Alcohol Use: Yes (social) History of Substance Use: reports: None - Smoking History Smoking history: Never smoked Have you smoked in the past 12 months: No Aproximately how many cigarettes per day: 0 - Social History ADL: Independent Occupation: Maintenance History of Recent Travel: Yes ([place]) Home Medications - Allergies Allergies/Adverse Reactions: Allergies Allergy/AdvReac Type Severity Reaction Status Date / Time No Known Allergies Allergy Unverified 02/21/20 10:07 - Home Medications Home Medications: Ambulatory Orders Atorvastatin Ca [Lipitor] 20 mg PO HS 02/21/20 Cholecalciferol (Vitamin D3) [Vitamin D3] 5,000 unit PO DAILY 02/21/20 Colchicine 0.6 mg PO ASDIR 02/21/20 Enalapril Maleate 2.5 mg PO DAILY 02/21/20 Glimepiride 4 mg PO BID 02/21/20 Indomethacin 50 mg PO Q8H 02/21/20 Metformin HCl [Glucophage] 500 mg PO BID 02/21/20 Review of Systems - Review of Systems Constitutional: reports: No Symptoms Eyes: reports: No Symptoms HENT: reports: No Symptoms Neck: reports: No Symptoms Cardiovascular: reports: No Symptoms Respiratory: reports: No Symptoms Gastrointestinal: reports: No Symptoms Genitourinary: reports: No Symptoms Musculoskeletal: reports: Joint Pain, Other Integumentary: reports: Erythema, Other Neurological: reports: No Symptoms Endocrine: reports: No Symptoms Hematology/Lymphatic: reports: No Symptoms Psychiatric: reports: No Symptoms Physical Exam Vital Signs: Vital Signs Temperature 98.5 F 02/21/20 12:55 Pulse Rate 69 02/21/20 12:55 Respiratory Rate 18 02/21/20 12:55 Blood Pressure 123/73 02/21/20 12:55 O2 Sat by Pulse Oximetry (%) 98 02/21/20 12:55 Constitutional: Yes: Well Nourished, Calm, Mild Distress Eyes: Yes: Conjunctiva Clear, EOM Intact HENT: Yes: Atraumatic, Normocephalic Neck: Yes: Supple, Trachea Midline Cardiovascular: Yes: Regular Rate and Rhythm Respiratory: Yes: Regular, CTA Bilaterally Gastrointestinal: Yes: Normal Bowel Sounds, Soft Musculoskeletal: Yes: WNL Extremities: Yes: Erythema (around the rt knee joint wiht swelling and fluctuation present), Other Integumentary: Yes: Erythema, Other Wound/Incision: Yes: Open to air, Other Neurological: Yes: Alert, Oriented Psychiatric: Yes: Alert, Oriented Labs: CBC, BMP 02/21/20 09:33 02/21/20 09:46 Imaging - Results X-ray: Report Reviewed, Image Reviewed Assessment/Plan this patient with multiple medical issues coming to the hospital with cellulitis around the knee joint and also fluctunt feeling around the joint i think the infection is probably in the tissues and the joint is ok i would start him on vanco and zosyn also might get a ct scan
--- NOTE | 2020-02-21 14:08 | HP ---
CHIEF COMPLAINT: Left knee pain and swelling [facility] HISTORY OF PRESENT ILLNESS: 59 year-old male with a PMH significant for HTN, HLD, Type II NIDDM, and gout last flare 2011. Patient presented to ED with redness, pain and swelling to his left index finger and right knee x 1 week. His last gout flare was in 2011 and he has been on no preventive medications. He was seen at an urgent care and was prescribed a 3-day course of colchicine and indomethacin which he finished 3 days ago. His symptoms persisted which prompted him to come to the ED today. Denies fever, sweats, chills. Denies any other injuries. ER course was notable for: (1) Right knee xray: no fracture; no soft tissue air (2) RLE US: negative for DVT Recent Travel: Traveled to [facility] for one week in May 2019 PAST MEDICAL HISTORY: Hypertension Hyperlipidemia Type II NIDDM Gout Sixth cranial nerve palsy (2017) PAST SURGICAL HISTORY: Abdominal and inguinal hernia repairs Social History: works in [employer], lives with Smoking: never Alcohol: occasional Drugs: no Family history: mother 84 a&w; father @94 complications of DM; 1 brother a&w; no biological children Allergies No Known Allergies Allergy (Unverified 02/21/20 10:07) HOME MEDICATIONS: Home Medications Medication Instructions Recorded Atorvastatin Ca [Lipitor] 20 mg PO HS 02/21/20 Cholecalciferol (Vitamin D3) 5,000 unit PO DAILY 02/21/20 [Vitamin D3] Colchicine 0.6 mg PO ASDIR 02/21/20 Enalapril Maleate 2.5 mg PO DAILY 02/21/20 Glimepiride 4 mg PO BID 02/21/20 Indomethacin 50 mg PO Q8H 02/21/20 Metformin HCl [Glucophage] 500 mg PO BID 02/21/20 REVIEW OF SYSTEMS CONSTITUTIONAL: Absent: fever, chills, diaphoresis, generalized weakness, malaise, loss of appetite, weight change HEENT: Absent: rhinorrhea, nasal congestion, throat pain, throat swelling, difficulty swallowing, mouth swelling, ear pain, eye pain, visual changes CARDIOVASCULAR: Absent: chest pain, syncope, palpitations, irregular heart rate, lightheadedness, peripheral edema RESPIRATORY: Absent: cough, shortness of breath, dyspnea with exertion, orthopnea, wheezing, stridor, hemoptysis GASTROINTESTINAL: Absent: abdominal pain, abdominal distension, nausea, vomiting, diarrhea, constipation, melena, hematochezia GENITOURINARY: Absent: dysuria, frequency, urgency, hesitancy, hematuria, flank pain, genital pain MUSCULOSKELETAL: +pain, warmth, swelling, erythema to right knee and base of right index finger Absent: myalgia, arthralgia, joint swelling, back pain, neck pain SKIN: Absent: rash, itching, pallor HEMATOLOGIC/IMMUNOLOGIC: Absent: easy bleeding, easy bruising, lymphadenopathy, frequent infections ENDOCRINE: Absent: unexplained weight gain, unexplained weight loss, heat intolerance, cold intolerance NEUROLOGIC: Absent: headache, focal weakness or paresthesias, dizziness, unsteady gait, seizure, mental status changes, bladder or bowel incontinence PSYCHIATRIC: Absent: anxiety, depression, suicidal or homicidal ideation, hallucinations. PHYSICAL EXAMINATION Vital Signs - 24 hr 02/21/20 02/21/20 08:58 12:55 Temperature 98.4 F 98.5 F Pulse Rate 66 Pulse Rate [ 69 Left Apical] Respiratory 18 18 Rate Blood Pressure 127/82 Blood Pressure 123/73 [Right Arm] O2 Sat by Pulse 96 98 Oximetry (%) GENERAL: Awake, alert, and fully oriented, in no acute distress. HEAD: Normal with no signs of trauma. EYES: Pupils equal, round and reactive to light, extraocular movements intact, sclera anicteric, conjunctiva clear. No lid lag. HEART: Regular rate and rhythm, normal S1 and S2 ABDOMEN: Soft, nontender, not distended LUE: left second finger MCP mild swelling, erythema, warmth, and mild tenderness RLE: left knee moderate swelling, erythema, warmth, exquisite tenderness; 2+ ankle and pedal edema NEUROLOGICAL: Cranial nerves II-XII intact. Normal speech. Laboratory Results - last 24 hr 02/21/20 02/21/20 02/21/20 09:02 09:33 09:46 WBC 8.8 RBC 4.65 Hgb 14.2 Hct 42.3 MCV 91.0 MCH 30.6 MCHC 33.6 RDW 11.3 L Plt Count 465 H D MPV 7.1 L Absolute Neuts (auto) 6.0 Neutrophils % 68.7 Lymphocytes % 21.1 D Monocytes % 8.3 Eosinophils % 1.3 Basophils % 0.6 ESR 72 H PT with INR 12.6 INR 1.13 Sodium 128 L Potassium 4.6 Chloride 95 L Carbon Dioxide 20 L Anion Gap 13 BUN 13.0 Creatinine 0.6 Est GFR (CKD-EPI)AfAm 129.36 Est GFR (CKD-EPI)NonAf 111.61 POC Glucometer Random Glucose 476 H* Calcium 9.2 Total Bilirubin 0.7 AST 18 ALT 24 Alkaline Phosphatase 70 C-Reactive Protein 2.9 H Total Protein 7.3 Albumin 3.4 02/21/20 02/21/20 11:48 12:52 WBC RBC Hgb Hct MCV MCH MCHC RDW Plt Count MPV Absolute Neuts (auto) Neutrophils % Lymphocytes % Monocytes % Eosinophils % Basophils % ESR PT with INR INR Sodium Potassium Chloride Carbon Dioxide Anion Gap BUN Creatinine Est GFR (CKD-EPI)AfAm Est GFR (CKD-EPI)NonAf POC Glucometer 269 247 Random Glucose Calcium Total Bilirubin AST ALT Alkaline Phosphatase C-Reactive Protein Total Protein Albumin ASSESSMENT/PLAN: 59 year-old male with a PMH significant for HTN, HLD, Type II NIDDM, and gout, admitted for gout exacerbation and LLE cellulitis. Gout flare r/o septic joint --seen and evaluated by ortho, no signs of septic joint at this time; no surgical intervention --continue indomethacin; defer further colchicine dosing pending rheum consult --IV Tyelenol for pain --start protonix --warm compresses q4h LLE cellulitis --erythema extending from right patella to pre-tibial area; ankle and pedal edema --US negative for DVT --start Zosyn Hypertension --BP stable --continue enalapril Hyperlipidemia --continue Lipitor Type II NIDDM --Novolog sliding scale coverage FEN Fluids: PO intake adequate Electrolytes: replete as indicated Nutrition: low sodium, diabetic DVT prophylaxis: subq lovenox Physical therapy Dispo: continues to require inpatient care. Full code. Family Medical History Family History: As Documented Visit type - Emergency Visit Emergency Visit: Yes ED Registration Date: 02/21/20 Care time: The patient presented to the Emergency Department on the above date and was hospitalized for further evaluation of their emergent condition. - New Patient This patient is new to me today: Yes Date on this admission: 02/21/20 - Critical Care Critical Care patient: No
[2020-02-21] MEDS ORDERED: PIPERACILLIN/TAZOBACTAM 3.375 GM VIAL IVPB ONE ×2 (14:32→21:26)
[2020-02-21] MEDS ORDERED: DEXTROSE 5%-WATER - 50 ML IVPB ONE ×2 (14:32→21:26)
[2020-02-21] MEDS: PIPERACILLIN/TAZOB 3.375 GM 3.375 GM in DEXTROSE 5%-WATER - 50 ML IVPB SCH ×2 (15:03→21:31)
[2020-02-21] MEDS: INSULIN SLIDING SCALE (NOVOLOG) 1 VIAL SQ SCH ×2 (17:07→21:40)
[2020-02-21] MEDS: PANTOPRAZOLE 40 MG TABLET PO SCH (18:28)
[2020-02-21] MEDS ORDERED: ENOXAPARIN NA (PORCINE) 40 MG/0.4 ML DISP.SYRIN SQ SCH (18:45)
[2020-02-21] MEDS: COLCHICINE 0.6 MG CAP PO SCH (19:34)
[2020-02-21] MEDS: ENOXAPARIN NA (PORCINE) 40 MG/0.4 ML DISP.SYRIN SQ SCH (19:34)
[2020-02-21] MEDS: ATORVASTATIN CA 20 MG TABLET (FP) PO SCH (21:31)
[2020-02-21] MEDS: ACETAMINOPHEN 1000 MG/100 ML VIAL (NON FORMULARY) IVPB PRN (21:32)
[2020-02-21] MEDS ORDERED: PT OWN MED DRAWER 7, Y5N ONE (21:50)
[2020-02-21] MEDS ORDERED: INDOMETHACIN 50 MG CAPSULE PO SCH ×2 (22:00)
[2020-02-22] MEDS ORDERED: DEXTROSE 5%-WATER - 50 ML IVPB ONE ×2 (05:32→14:49)
[2020-02-22] MEDS ORDERED: PIPERACILLIN/TAZOBACTAM 3.375 GM VIAL IVPB ONE ×4 (05:32→22:13)
[2020-02-22] MEDS: PIPERACILLIN/TAZOB 3.375 GM 3.375 GM in DEXTROSE 5%-WATER - 50 ML IVPB SCH ×2 (06:06→14:58)
[2020-02-22] MEDS: INSULIN SLIDING SCALE (NOVOLOG) 1 VIAL SQ SCH ×4 (06:09→21:18)
[2020-02-22] MEDS: ACETAMINOPHEN 1000 MG/100 ML VIAL (NON FORMULARY) IVPB PRN (06:35)
--- NOTE | 2020-02-22 07:57 | PN ---
Progress Note (short form) - Note Progress Note: ORTHOPEDIC SURGERY PROGRESS NOTE Department of Orthopedic Surgery SUBJECTIVE No acute events overnight. No complaints currently. Denies chest pain, shortness of breath, or calf pain. No nausea or vomiting. Tolerating oral intake. Pain control difficult overnight, but improving. PHYSICAL EXAMINATION General: Alert, oriented, cooperative and no distress. Right Lower Extremity: Skin warm, dry, and intact; Muscle mass equal and symmetric to contralateral side. No atrophy noted. No masses or effusions noted. Tender to palpation just inferior to the patella with erythema consistent with cellulitis - improved since yesterday; nontender throughout rest of extremity. No cords or calf tenderness; Mild ankle edema. Full passive and active ROM of the hip, ankle, and toes, free from pain. LROM of the knee 0-60 degrees with no pain, and then pain begins after 60 degrees of flexion, secondary to anterior knee pain and swelling; Joints stable with no pathologic laxity. EHL/TA/GS motor intact; SILT distally; 2+ DP pulses; Cap refill brisk. Tone and reflexes normal. DVT Exam: No evidence of DVT seen on physical exam; No cords or calf tenderness; No significant calf/ankle edema. Intake & Output 02/20/20 02/21/20 02/22/20 23:59 23:59 23:59 Intake Total 3516 300 Balance 3516 300 Intake: IV 2383 NORMAL SALINE 2383 IVPB 733 300 Oral 400 Other: Voiding Method Toilet Toilet # Unmeasured Voids Void 3 Weight 175 lb 14.4 oz Height 5 ft 1 in Body Mass Index (BMI) 33.2 Weight Measurement Method Standing Scale Active Medications Generic Name Dose Route Start Last Admin Trade Name Freq PRN Reason Stop Dose Admin Acetaminophen 1,000 mg 02/21/20 16:55 02/22/20 06:35 Ofirmev Injection - IVPB 1,000 mg Q6H PRN Administration PAIN LEVEL 1-5 Atorvastatin Calcium 20 mg 02/21/20 22:00 02/21/20 21:31 Lipitor - PO 20 mg HS REJI Administration Colchicine 0.6 mg 02/21/20 19:00 02/21/20 19:34 Colcrys PO 0.6 mg DAILY REJI Administration Enalapril Maleate 2.5 mg 02/22/20 10:00 Vasotec - PO DAILY REJI Enoxaparin Sodium 40 mg 02/21/20 20:00 02/21/20 19:34 Lovenox - SQ 40 mg DAILY REJI Administration Piperacillin Sod/Tazobactam 50 mls @ 100 mls/hr 02/21/20 14:30 02/22/20 06:06 Sod 3.375 gm/ Dextrose IVPB 100 mls/hr Q8H REJI Administration Protocol Indomethacin 50 mg 02/21/20 22:00 02/21/20 21:31 Indocin - PO 50 mg QID REJI Administration Insulin Aspart 1 vial 02/21/20 16:30 02/22/20 06:09 Novolog Vial Sliding Scale - SQ 6 units ACHS REJI Administration Protocol Pantoprazole Sodium 40 mg 02/21/20 18:30 02/21/20 18:28 Protonix - PO 40 mg DAILY REJI Administration Vital Signs (last) Temp Pulse Resp BP Pulse Ox 98.0 F 69 18 136/73 99 02/22/20 06:04 02/22/20 06:04 02/22/20 06:04 02/22/20 06:04 02/22/20 06:04 Laboratory (coagulation) PT with INR 12.6 SEC (10.2-13.0) 02/21/20 09:02 Laboratory 02/21/20 09:33 02/21/20 09:46 ASSESSMENT AND PLAN Mr. Yates is a 59 year old male presenting with right infrapatellar bursitis with cellulitis (improving) and history of gout. No signs of septic joint at this time. We have reviewed the imaging and clinical findings in detail, as well as their potential implications. After appropriate informed discussion, we agreed on the following plan: 1. Pain control 2. DVT ppx 3. ID consult / recommend IV Antibiotics 4. Rheumatology consult for gout 5. Patient's cellulitis was marked, will follow for progression. Cold compresses. 6. No signs of septic joint. Will watch patient's progress on antibiotics. No plan for surgical intervention at this time. 7. Continue medical management All questions were answered. Thank you for involving our team in the care of this patient. We will follow the patient with you. Please call us with questions.
[2020-02-22 08:21] LABS: BASO % 0.1 % (0-2.0); EOS % 0.8 % (0-4.5); HEMOGLOBIN 13.7 GM/dl (11.7-16.9); LYMPH % 17.4 % (8-40); MCH 30.5 pg (25.7-33.7); MCHC 34.3 g/dl (32.0-35.9); MEAN CELL VOLUME 88.9 fl (80-96); MEAN PLT VOLUME 6.9 fl (7.5-11.1); MONO % 7.5 % (3.8-10.2); NEUT % 74.2 % (42.8-82.8); PLATELET COUNT 450 K/MM3 (134-434); RDW 11.3 % (11.9-15.9); WHITE BLOOD COUNT 8.6 K/mm3 (4.0-10.8)
[2020-02-22 08:26] LABS: ALBUMIN 2.7 g/dl (3.4-5.0); BILIRUBIN,TOTAL 0.6 mg/dl (0.2-1); CALCIUM 8.4 mg/dl (8.5-10); CREATININE 0.6 mg/dl (0.55-1.3); MAGNESIUM 1.9 mg/dL (1.8-2.4); POTASSIUM 4.3 mmol/L (3.5-5.1); TOT PROT 6.5 g/dl (6.4-8.2); URIC ACID 4.2 mg/dl (2.6-7.2)
[2020-02-22] MEDS: INDOMETHACIN 25 MG CAPSULE PO SCH ×3 (09:40→21:19)
[2020-02-22] MEDS: PANTOPRAZOLE 40 MG TABLET PO SCH (09:40)
[2020-02-22] MEDS: ENALAPRIL MALEATE 2.5 MG TABLET (FP) PO SCH (09:41)
[2020-02-22] MEDS: COLCHICINE 0.6 MG CAP PO SCH (09:41)
[2020-02-22] MEDS: ENOXAPARIN NA (PORCINE) 40 MG/0.4 ML DISP.SYRIN SQ SCH (09:42)
--- NOTE | 2020-02-22 13:51 | PN ---
Progress Note, Physician History of Present Illness: stable cellulitis better still fluctuate feeling on the knee joint - Current Medication List Current Medications: Active Medications Acetaminophen (Ofirmev Injection -) 1,000 mg IVPB Q6H PRN PRN Reason: PAIN LEVEL 1-5 Last Admin: 02/22/20 06:35 Dose: 1,000 mg Documented by: Atorvastatin Calcium (Lipitor -) 20 mg PO HS [facility] Last Admin: 02/21/20 21:31 Dose: 20 mg Documented by: Colchicine (Colcrys) 0.6 mg PO DAILY [facility] Last Admin: 02/22/20 09:41 Dose: 0.6 mg Documented by: Enalapril Maleate (Vasotec -) 2.5 mg PO DAILY [facility] Last Admin: 02/22/20 09:41 Dose: 2.5 mg Documented by: Enoxaparin Sodium (Lovenox -) 40 mg SQ DAILY [facility] Last Admin: 02/22/20 09:42 Dose: 40 mg Documented by: Piperacillin Sod/Tazobactam (Sod 3.375 gm/ Dextrose) 50 mls @ 100 mls/hr IVPB Q8H [facility]; Protocol Last Admin: 02/22/20 06:06 Dose: 100 mls/hr Documented by: Indomethacin (Indocin -) 50 mg PO QID [facility] Last Admin: 02/22/20 09:40 Dose: 50 mg Documented by: Insulin Aspart (Novolog Vial Sliding Scale -) 1 vial SQ ACHS [facility]; Protocol Last Admin: 02/22/20 11:32 Dose: 8 units Documented by: Pantoprazole Sodium (Protonix -) 40 mg PO DAILY [facility] Last Admin: 02/22/20 09:40 Dose: 40 mg Documented by: - Objective Vital Signs: Vital Signs Temperature 98.0 F 02/22/20 06:04 Pulse Rate 69 02/22/20 06:04 Respiratory Rate 18 02/22/20 06:04 Blood Pressure 136/73 02/22/20 06:04 O2 Sat by Pulse Oximetry (%) 99 02/22/20 08:50 Constitutional: Yes: No Distress, Calm Cardiovascular: Yes: S1, S2 Respiratory: Yes: Regular, CTA Bilaterally Gastrointestinal: Yes: Normal Bowel Sounds, Soft Musculoskeletal: Yes: WNL Extremities: Yes: Other Integumentary: Yes: Erythema, Other Neurological: Yes: Alert, Oriented Psychiatric: Yes: Alert, Oriented Labs: CBC, BMP 02/22/20 07:25 02/22/20 07:25 INR, PTT INR 1.13 (0.82-1.09) 02/21/20 09:02 Assessment/Plan plan will d/w the team will d/w about ct scan abx might need superficial drainage
[2020-02-22] MEDS: PIPERACILLIN/TAZOB 3.375 GM 3.375 GM in SODIUM CHLORIDE 50 ML IVPB SCH ×2 (15:02→22:30)
--- NOTE | 2020-02-22 15:16 | PN ---
Physical Exam: SUBJECTIVE: Patient seen and examined. Pain in knee is slightly improved, still cannot bend secondary to pain. OBJECTIVE: Vital Signs Period Temp Pulse Resp BP Sys/Wynne Pulse Ox Last 24 Hr 98.0 F-99.0 F 62-76 18-18 117-146/57-74 98-99 GENERAL: Awake, alert, and fully oriented, in no acute distress. HEART: Regular rate and rhythm, normal S1 and S2 ABDOMEN: Soft, nontender, not distended LUE: left second finger MCP swelling and erythema resolved RLE: left knee swelling and erythema improved; 2+ ankle and pedal edema NEUROLOGICAL: Cranial nerves II-XII intact. Normal speech. Laboratory Results - last 24 hr 02/21/20 02/21/20 02/21/20 12:00 17:03 21:13 WBC RBC Hgb Hct MCV MCH MCHC RDW Plt Count MPV Absolute Neuts (auto) Neutrophils % Lymphocytes % Monocytes % Eosinophils % Basophils % Sodium Potassium Chloride Carbon Dioxide Anion Gap BUN Creatinine Est GFR (CKD-EPI)AfAm Est GFR (CKD-EPI)NonAf POC Glucometer 304 181 Random Glucose Hemoglobin A1c % Uric Acid Calcium Magnesium Total Bilirubin AST ALT Alkaline Phosphatase Total Protein Albumin COVID-19 ([facility]) Not detected 02/22/20 02/22/20 02/22/20 06:08 07:25 07:25 WBC 8.6 RBC 4.50 Hgb 13.7 Hct 40.0 MCV 88.9 MCH 30.5 MCHC 34.3 RDW 11.3 L Plt Count 450 H MPV 6.9 L Absolute Neuts (auto) 6.4 Neutrophils % 74.2 Lymphocytes % 17.4 Monocytes % 7.5 Eosinophils % 0.8 Basophils % 0.1 Sodium 135 L Potassium 4.3 Chloride 102 Carbon Dioxide 26 Anion Gap 7 L BUN 8.0 Creatinine 0.6 Est GFR (CKD-EPI)AfAm 129.36 Est GFR (CKD-EPI)NonAf 111.61 POC Glucometer 278 Random Glucose 304 H Hemoglobin A1c % Uric Acid 4.2 Calcium 8.4 L Magnesium 1.9 Total Bilirubin 0.6 AST 15 ALT 18 Alkaline Phosphatase 56 D Total Protein 6.5 Albumin 2.7 L COVID-19 ([facility]) 02/22/20 02/22/20 07:25 11:27 WBC RBC Hgb Hct MCV MCH MCHC RDW Plt Count MPV Absolute Neuts (auto) Neutrophils % Lymphocytes % Monocytes % Eosinophils % Basophils % Sodium Potassium Chloride Carbon Dioxide Anion Gap BUN Creatinine Est GFR (CKD-EPI)AfAm Est GFR (CKD-EPI)NonAf POC Glucometer 306 Random Glucose Hemoglobin A1c % 11.4 H Uric Acid Calcium Magnesium Total Bilirubin AST ALT Alkaline Phosphatase Total Protein Albumin COVID-19 ([facility]) Active Medications Generic Name Dose Route Start Last Admin Trade Name Freq PRN Reason Stop Dose Admin Acetaminophen 1,000 mg 02/21/20 16:55 02/22/20 06:35 Ofirmev Injection - IVPB 1,000 mg Q6H PRN Administration PAIN LEVEL 1-5 Atorvastatin Calcium 20 mg 02/21/20 22:00 02/21/20 21:31 Lipitor - PO 20 mg HS REJI Administration Colchicine 0.6 mg 02/21/20 19:00 02/22/20 09:41 Colcrys PO 0.6 mg DAILY REJI Administration Enalapril Maleate 2.5 mg 02/22/20 10:00 02/22/20 09:41 Vasotec - PO 2.5 mg DAILY REJI Administration Enoxaparin Sodium 40 mg 02/21/20 20:00 02/22/20 09:42 Lovenox - SQ 40 mg DAILY REJI Administration Piperacillin Sod/Tazobactam 50 mls @ 100 mls/hr 02/22/20 15:00 02/22/20 15:02 Sod 3.375 gm/ Sodium Chloride IVPB 100 mls/hr Q8H REJI Administration Protocol Indomethacin 50 mg 02/22/20 10:00 02/22/20 14:58 Indocin - PO 50 mg QID REJI Administration Insulin Aspart 1 vial 02/21/20 16:30 02/22/20 11:32 Novolog Vial Sliding Scale - SQ 8 units ACHS REJI Administration Protocol Pantoprazole Sodium 40 mg 02/21/20 18:30 02/22/20 09:40 Protonix - PO 40 mg DAILY REJI Administration ASSESSMENT/PLAN: 59 year-old male with a PMH significant for HTN, HLD, Type II NIDDM, and gout, admitted for gout exacerbation and LLE cellulitis. Gout flare r/o septic joint --seen and evaluated by ortho, no signs of septic joint at this time; no surgical intervention --seen and evaluated by rheum: indomethacin QID; colchicine daily --IV Tylenol for pain --continue protonix --continuous ice pack LLE cellulitis --knee swelling, erythema, and pain all improving --US negative for DVT --continue Zosyn --CT pending to r/o abscess Hypertension --BP stable --continue enalapril Hyperlipidemia --continue Lipitor Type II NIDDM --Novolog sliding scale coverage FEN Fluids: PO intake adequate Electrolytes: replete as indicated Nutrition: low sodium, diabetic DVT prophylaxis: subq lovenox Physical therapy Dispo: continues to require inpatient care. Full code. Visit type - Emergency Visit Emergency Visit: Yes ED Registration Date: 02/21/20 Care time: The patient presented to the Emergency Department on the above date and was hospitalized for further evaluation of their emergent condition. - New Patient This patient is new to me today: No - Critical Care Critical Care patient: No
--- NOTE | 2020-02-22 15:46 | EKG ---
Test Reason : Blood Pressure : / mmHG Vent. Rate : 072 BPM Atrial Rate : 072 BPM P-R Int : 144 ms QRS Dur : 082 ms QT Int : 392 ms P-R-T Axes : -06 -30 009 degrees QTc Int : 429 ms NORMAL SINUS RHYTHM LEFT AXIS DEVIATION ABNORMAL ECG WHEN COMPARED WITH ECG OF 19-JUN-2017 10:02, NO SIGNIFICANT CHANGE WAS FOUND Confirmed by TRU TURK MD ([id number]) on 02/22/2020 3:46:12 PM Referred By: ALBERTA ALEXIS Confirmed By:TRU TURK MD
[2020-02-22] MEDS ORDERED: SODIUM CHLORIDE 50 ML IVPB ONE ×2 (15:47→22:14)
--- NOTE | 2020-02-22 17:01 | CONSULT ---
Consult Consult Specialty:: Rheumatology - History of Present Illness History of Present Illness: 59 year-old male with a PMH significant for HTN, HLD, Type II NIDDM, and gout admitted with pain in the left foot and right knee. HPI. In 1209 the patient developed gouty arthritis. He had multiple episodes of acute arthritis during the first year, managed with Colchicine and Indomethacin. He was started on a low purine diet and since 1211 he did not have episodes of acute arthritis until the present outbreak. One week ago he developed pain and swelling in the right foot , he was treated with Colchicine and Indomethacin for 3 days. He improved partially and when he discontinued the medication he had relapse of pain and swelling in the right knee and distal to the knee, accompanied by erythema and significant tenderness. Laboratory work-up revealed a CBC with a WBC of 8.6, hgb 13.7, HCT 40 and platelets 450. ESR 72. Glucose 304, HgbA1C 11.4, creatinine 0.6, liver function tests were normal and uric acid 4.2. Covid-19 was negative, X ray of the right knee was normal. - History Source History Provided By: Patient, Medical Record - Past Medical History Cardio/Vascular: Yes: HTN, Hyperlipdemia Endocrine: Yes: Diabetes Mellitus - Past Surgical History Past Surgical History: Yes: Hernia Repair - Alcohol/Substance Use Hx Alcohol Use: Yes (social) History of Substance Use: reports: None - Smoking History Smoking history: Never smoked Have you smoked in the past 12 months: No Aproximately how many cigarettes per day: 0 - Social History ADL: Independent Occupation: Maintenance History of Recent Travel: Yes ([place]) Home Medications - Allergies Allergies/Adverse Reactions: Allergies Allergy/AdvReac Type Severity Reaction Status Date / Time No Known Allergies Allergy Unverified 02/21/20 10:07 - Home Medications Home Medications: Ambulatory Orders Atorvastatin Ca [Lipitor] 20 mg PO HS 02/21/20 Cholecalciferol (Vitamin D3) [Vitamin D3] 5,000 unit PO DAILY 02/21/20 Colchicine 0.6 mg PO ASDIR 02/21/20 Enalapril Maleate 2.5 mg PO DAILY 02/21/20 Glimepiride 4 mg PO BID 02/21/20 Indomethacin 50 mg PO Q8H 02/21/20 Metformin HCl [Glucophage] 500 mg PO BID 02/21/20 Review of Systems - Review of Systems Constitutional: reports: Malaise Eyes: reports: No Symptoms HENT: reports: No Symptoms Neck: reports: No Symptoms Cardiovascular: reports: No Symptoms Respiratory: reports: No Symptoms Gastrointestinal: reports: No Symptoms Musculoskeletal: reports: Other (See HPI) Physical Exam Vital Signs: Vital Signs Temperature 98.3 F 02/22/20 14:00 Pulse Rate 76 02/22/20 14:00 Respiratory Rate 18 02/22/20 14:00 Blood Pressure 130/72 02/22/20 14:00 O2 Sat by Pulse Oximetry (%) 98 02/22/20 14:00 Constitutional: Yes: Moderate Distress Eyes: Yes: WNL HENT: Yes: WNL Cardiovascular: Yes: WNL Respiratory: Yes: WNL Gastrointestinal: Yes: WNL Musculoskeletal: Yes: Other (No active arthritis, The right knee was not tender or swollen. He had significant tenderness distal to the knee over the patellar tendon and area of fluctuation, possibly an bursa or abcess. No other joint involvement.) Labs: CBC, BMP 02/22/20 07:25 02/22/20 07:25 Problem List - Problems (1) Gout Assessment/Plan: The patient has history of gouty arthritis. It is possible that this time initially he had acute gouty arthritis, however at the present time he does not have active joints. Uric acid is normal. Plan. Decrease Indomethacin to 50 mg TID and in 2 days BID. Code(s): M10.9 - GOUT, UNSPECIFIED (2) Cellulitis Assessment/Plan: Probable cellulitis distal to the right knee, improving. Rule out abscess or infrapatellar bursitis. Plan: Follow up by Orthopedics. Code(s): L03.90 - CELLULITIS, UNSPECIFIED
[2020-02-22] MEDS: ATORVASTATIN CA 20 MG TABLET (FP) PO SCH (21:19)
[2020-02-23] MEDS ORDERED: PIPERACILLIN/TAZOBACTAM 3.375 GM VIAL IVPB ONE ×3 (06:08→22:48)
[2020-02-23] MEDS ORDERED: SODIUM CHLORIDE 50 ML IVPB ONE ×3 (06:08→22:48)
[2020-02-23] MEDS: PIPERACILLIN/TAZOB 3.375 GM 3.375 GM in SODIUM CHLORIDE 50 ML IVPB SCH ×3 (06:31→22:55)
[2020-02-23] MEDS: INDOMETHACIN 25 MG CAPSULE PO SCH ×3 (06:31→21:16)
[2020-02-23] MEDS: INSULIN SLIDING SCALE (NOVOLOG) 1 VIAL SQ SCH ×4 (06:40→21:26)
--- NOTE | 2020-02-23 09:00 | PN ---
Physical Exam: SUBJECTIVE: Patient seen and examined. Pain improved. No fevers/chills/malaise. OBJECTIVE: Vital Signs Period Temp Pulse Resp BP Sys/Wynne Pulse Ox Last 24 Hr 97.8 F-98.8 F 59-78 18-18 122-143/64-80 97-100 GENERAL: The patient is awake, alert, and fully oriented, in no acute distress. HEAD: Normal with no signs of trauma. EYES: PERRL, extraocular movements intact, sclera anicteric, conjunctiva clear. No ptosis. ENT: Ears normal, nares patent, oropharynx clear without exudates, moist mucous membranes. NECK: Trachea midline, full range of motion, supple. LUNGS: Breath sounds equal, clear to auscultation bilaterally, no wheezes, no crackles, no accessory muscle use. HEART: Regular rate and rhythm, S1, S2 without murmur, rub or gallop. ABDOMEN: Soft, nontender, nondistended, normoactive bowel sounds, no guarding, no rebound, no hepatosplenomegaly, no masses. EXTREMITIES: 2+ pulses, warm, well-perfused. Able to flex right knee to nearly 90d and straighten. Able to ambulate independently. Erythema has receded significantly from demarcated area. Moderate warmth, erythema, edema over right knee with small open sinus tract; minimal pus expressed by orthopedist at bedside. NEUROLOGICAL: Cranial nerves II through XII grossly intact. Normal speech, gait not observed. PSYCH: Normal mood, normal affect. SKIN: Warm, dry, normal turgor. Laboratory Results - last 24 hr 02/21/20 02/22/20 02/22/20 12:00 07:25 11:27 POC Glucometer 306 Hemoglobin A1c % 11.4 H COVID-19 ([facility]) Not detected 02/22/20 02/22/20 02/23/20 16:37 21:01 06:36 POC Glucometer 241 306 214 Hemoglobin A1c % COVID-19 ([facility]) Active Medications Generic Name Dose Route Start Last Admin Trade Name Freq PRN Reason Stop Dose Admin Acetaminophen 1,000 mg 02/21/20 16:55 02/22/20 06:35 Ofirmev Injection - IVPB 1,000 mg Q6H PRN Administration PAIN LEVEL 1-5 Atorvastatin Calcium 20 mg 02/21/20 22:00 02/22/20 21:19 Lipitor - PO 20 mg HS REJI Administration Colchicine 0.6 mg 02/21/20 19:00 02/22/20 09:41 Colcrys PO 0.6 mg DAILY REJI Administration Enalapril Maleate 2.5 mg 02/22/20 10:00 02/22/20 09:41 Vasotec - PO 2.5 mg DAILY REJI Administration Enoxaparin Sodium 40 mg 02/21/20 20:00 02/22/20 09:42 Lovenox - SQ 40 mg DAILY [facility] Administration Piperacillin Sod/Tazobactam 50 mls @ 100 mls/hr 02/22/20 15:00 02/23/20 06:31 Sod 3.375 gm/ Sodium Chloride IVPB 100 mls/hr Q8H REJI Administration Protocol Indomethacin 50 mg 02/22/20 22:00 02/23/20 06:31 Indocin - PO 02/24/20 14:01 50 mg TID REJI Administration Insulin Aspart 1 vial 02/21/20 16:30 02/23/20 06:40 Novolog Vial Sliding Scale - SQ 4 units ACHS [facility] Administration Protocol Insulin Detemir 10 units 02/23/20 22:00 Levemir Vial SQ HS REJI Pantoprazole Sodium 40 mg 02/21/20 18:30 02/22/20 09:40 Protonix - PO 40 mg DAILY REJI Administration ASSESSMENT/PLAN: 59 year-old male with a PMH significant for HTN, HLD, Type II NIDDM, and gout, admitted for gout exacerbation and LLE cellulitis. Gout flare r/o septic joint --seen and evaluated by rheum: indomethacin QID; colchicine daily --IV Tylenol for pain --continue protonix --continuous ice pack --Improving on Zosyn, continue --Ortho to re-eval tomorrow, possible OR washout on Tuesday LLE cellulitis --knee swelling, erythema, and pain all improving --US negative for DVT --continue Zosyn --CT limited by lack of contrast; cannot r/o abscess Hypertension --BP stable --continue enalapril Hyperlipidemia --continue Lipitor Type II NIDDM --HgbA1C 11.4%! --Has required 30 units regular insulin last 24 hrs --Adding Levemir 10 units hs FEN Fluids: PO intake adequate Electrolytes: replete as indicated Nutrition: low sodium, diabetic DVT prophylaxis: subq lovenox Physical therapy Dispo: Continues to require inpatient care. Full code. Ortho to make decision on need for surgical intervention Tuesday - see tomorrow's note as may need NPO after MN Tuesday, hold Lovenox Tuesday. Visit type - Emergency Visit Emergency Visit: Yes ED Registration Date: 02/21/20 Care time: The patient presented to the Emergency Department on the above date and was hospitalized for further evaluation of their emergent condition. - New Patient This patient is new to me today: No - Critical Care Critical Care patient: No - Discharge Referral Referred to [facility] No
[2020-02-23] MEDS: ENOXAPARIN NA (PORCINE) 40 MG/0.4 ML DISP.SYRIN SQ SCH (09:28)
[2020-02-23] MEDS: ENALAPRIL MALEATE 2.5 MG TABLET (FP) PO SCH (09:28)
[2020-02-23] MEDS: PANTOPRAZOLE 40 MG TABLET PO SCH (09:29)
[2020-02-23] MEDS: COLCHICINE 0.6 MG CAP PO SCH (09:29)
--- NOTE | 2020-02-23 10:13 | PN ---
Progress Note (short form) - Note Progress Note: ORTHOPEDIC SURGERY PROGRESS NOTE Department of Orthopedic Surgery SUBJECTIVE No acute events overnight. No complaints currently. Denies chest pain, shortness of breath, or calf pain. No nausea or vomiting. Tolerating oral intake. Pain controlled. PHYSICAL EXAMINATION General: Alert, oriented, cooperative and no distress. Right Lower Extremity: Skin warm, dry, and intact; Muscle mass equal and symmetric to contralateral side. No atrophy noted. No masses or effusions noted. Tender to palpation just inferior to the patella with erythema consistent with cellulitis and bursitis - improved further since yesterday; Mild drainage today; nontender throughout rest of extremity. No cords or calf tenderness; Mild ankle edema. Full passive and active ROM of the hip, ankle, and toes, free from pain. LROM of the knee 0-95 degrees with no pain, and then pain begins after 95 degrees of flexion, secondary to anterior knee pain and swelling; Joints stable with no pathologic laxity. EHL/TA/GS motor intact; SILT distally; 2+ DP pulses; Cap refill brisk. Tone and reflexes normal. DVT Exam: No evidence of DVT seen on physical exam; No cords or calf tenderness; No significant calf/ankle edema. Intake & Output 02/21/20 02/22/20 02/23/20 23:59 23:59 23:59 Intake Total 3516 1730 Balance 3516 1730 Intake: IV 2383 NORMAL SALINE 2383 IVPB 733 450 Oral 400 1280 Other: Voiding Method Toilet Toilet Toilet # Unmeasured Voids Void 5 1 Bowel Movement No Yes # Bowel Movements 1 Weight 175 lb 14.4 oz Height 5 ft 1 in Body Mass Index (BMI) 33.2 Weight Measurement Method Standing Scale Active Medications Generic Name Dose Route Start Last Admin Trade Name Freq PRN Reason Stop Dose Admin Acetaminophen 1,000 mg 02/21/20 16:55 02/22/20 06:35 Ofirmev Injection - IVPB 1,000 mg Q6H PRN Administration PAIN LEVEL 1-5 Atorvastatin Calcium 20 mg 02/21/20 22:00 02/22/20 21:19 Lipitor - PO 20 mg HS REJI Administration Colchicine 0.6 mg 02/21/20 19:00 02/23/20 09:29 Colcrys PO 0.6 mg DAILY REJI Administration Enalapril Maleate 2.5 mg 02/22/20 10:00 02/23/20 09:28 Vasotec - PO 2.5 mg DAILY REJI Administration Enoxaparin Sodium 40 mg 02/21/20 20:00 02/23/20 09:28 Lovenox - SQ 40 mg DAILY REJI Administration Piperacillin Sod/Tazobactam 50 mls @ 100 mls/hr 02/22/20 15:00 02/23/20 06:31 Sod 3.375 gm/ Sodium Chloride IVPB 100 mls/hr Q8H REJI Administration Protocol Indomethacin 50 mg 02/22/20 22:00 02/23/20 06:31 Indocin - PO 02/24/20 14:01 50 mg TID REJI Administration Insulin Aspart 1 vial 02/21/20 16:30 02/23/20 06:40 Novolog Vial Sliding Scale - SQ 4 units ACHS REJI Administration Protocol Insulin Detemir 10 units 02/23/20 22:00 Levemir Vial SQ HS REJI Pantoprazole Sodium 40 mg 02/21/20 18:30 02/23/20 09:29 Protonix - PO 40 mg DAILY REJI Administration Vital Signs (last) Temp Pulse Resp BP Pulse Ox 98.2 F 67 18 133/64 99 02/23/20 06:00 02/23/20 06:00 02/23/20 06:00 02/23/20 06:00 02/23/20 06:00 Laboratory (coagulation) PT with INR 12.6 SEC (10.2-13.0) 02/21/20 09:02 Laboratory 02/22/20 07:25 02/22/20 07:25 ASSESSMENT AND PLAN Mr. Yates is a 59 year old male presenting with right infrapatellar bursitis with cellulitis (improving) and history of gout. No signs of septic joint at this time. There was mild drainage this morning anteriorly from the bursitis. We were able to express the drainage and able to drain some of the fluid at bedside. We have reviewed the imaging and clinical findings in detail, as well as their potential implications. After appropriate informed discussion, we agreed on the following plan: 1. Pain control 2. DVT ppx 3. Continue IV antibiotics / ID Consult appreciated 4. Rheumatology consult appreciated. 5. Patient's cellulitis was marked upon admission - improved significantly; will follow for improvement. Continue cold compresses. 6. No signs of septic joint. 7. Fluid from the bursa was able to be expressed today at bedside. He has improvement in symptoms and cellulitis, we will continue to observe. Will re-evaluate again tomorrow. If not improved, or if worsens, we will consider a surgical incision and debridement of the bursitis. 7. Continue medical management All questions were answered. Thank you for involving our team in the care of this patient. We will follow the patient with you. Please call us with questions.
[2020-02-23] MEDS: ACETAMINOPHEN 1000 MG/100 ML VIAL (NON FORMULARY) IVPB PRN (13:09)
--- NOTE | 2020-02-23 14:17 | PN ---
Progress Note, Physician History of Present Illness: Pt with improvement of Rt knee erythema/edema. Small amount of fluid expressed by Orthopedics. Has some tenderness currently and still without full ROM. Remains afebrile. - Current Medication List Current Medications: Active Medications Acetaminophen (Ofirmev Injection -) 1,000 mg IVPB Q6H PRN PRN Reason: PAIN LEVEL 1-5 Last Admin: 02/23/20 13:09 Dose: 1,000 mg Documented by: Atorvastatin Calcium (Lipitor -) 20 mg PO HS [facility] Last Admin: 02/22/20 21:19 Dose: 20 mg Documented by: Colchicine (Colcrys) 0.6 mg PO DAILY [facility] Last Admin: 02/23/20 09:29 Dose: 0.6 mg Documented by: Enalapril Maleate (Vasotec -) 2.5 mg PO DAILY [facility] Last Admin: 02/23/20 09:28 Dose: 2.5 mg Documented by: Enoxaparin Sodium (Lovenox -) 40 mg SQ DAILY [facility] Last Admin: 02/23/20 09:28 Dose: 40 mg Documented by: Piperacillin Sod/Tazobactam (Sod 3.375 gm/ Sodium Chloride) 50 mls @ 100 mls/hr IVPB Q8H [facility]; Protocol Last Admin: 02/23/20 06:31 Dose: 100 mls/hr Documented by: Indomethacin (Indocin -) 50 mg PO TID [facility] Stop: 02/24/20 14:01 Last Admin: 02/23/20 13:09 Dose: 50 mg Documented by: Insulin Aspart (Novolog Vial Sliding Scale -) 1 vial SQ [facility]; Protocol Last Admin: 02/23/20 13:09 Dose: 8 units Documented by: Insulin Detemir (Levemir Vial) 10 units SQ [facility] Pantoprazole Sodium (Protonix -) 40 mg PO DAILY [facility] Last Admin: 02/23/20 09:29 Dose: 40 mg Documented by: - Objective Vital Signs: Vital Signs Temperature 98.6 F 02/23/20 10:00 Pulse Rate 79 02/23/20 10:00 Respiratory Rate 18 02/23/20 10:00 Blood Pressure 129/76 02/23/20 10:00 O2 Sat by Pulse Oximetry (%) 98 02/23/20 10:00 Constitutional: Yes: No Distress, Calm Eyes: Yes: Conjunctiva Clear Cardiovascular: Yes: Regular Rate and Rhythm Respiratory: Yes: Regular Gastrointestinal: Yes: Normal Bowel Sounds, Soft Genitourinary: Yes: WNL Extremities: Yes: Erythema (Rt knee erythema/warmth less. Mild drainage noted on dressing. Mild tenderness at site.) Integumentary: Yes: WNL Neurological: Yes: Alert, Oriented Labs: CBC, BMP 02/22/20 07:25 02/22/20 07:25 INR, PTT INR 1.13 (0.82-1.09) 02/21/20 09:02 Laboratory Last Values WBC 8.6 K/mm3 (4.0-10.8) 02/22/20 07:25 RBC 4.50 M/mm3 (4.00-5.60) 02/22/20 07:25 Hgb 13.7 GM/dl (11.7-16.9) 02/22/20 07:25 Hct 40.0 % (35.4-49) 02/22/20 07:25 MCV 88.9 fl (80-96) 02/22/20 07:25 MCH 30.5 pg (25.7-33.7) 02/22/20 07:25 MCHC 34.3 g/dl (32.0-35.9) 02/22/20 07:25 RDW 11.3 % (11.9-15.9) L 02/22/20 07:25 Plt Count 450 K/MM3 (134-434) H 02/22/20 07:25 MPV 6.9 fl (7.5-11.1) L 02/22/20 07:25 Absolute Neuts (auto) 6.4 K/mm3 02/22/20 07:25 Neutrophils % 74.2 % (42.8-82.8) 02/22/20 07:25 Lymphocytes % 17.4 % (8-40) 02/22/20 07:25 Monocytes % 7.5 % (3.8-10.2) 02/22/20 07:25 Eosinophils % 0.8 % (0-4.5) 02/22/20 07:25 Basophils % 0.1 % (0-2.0) 02/22/20 07:25 ESR 72 mm/hr (0-20) H 02/21/20 09:33 PT with INR 12.6 SEC (10.2-13.0) 02/21/20 09:02 INR 1.13 (0.82-1.09) 02/21/20 09:02 Sodium 135 mmol/L (136-145) L 02/22/20 07:25 Potassium 4.3 mmol/L (3.5-5.1) 02/22/20 07:25 Chloride 102 mmol/L (98-107) 02/22/20 07:25 Carbon Dioxide 26 mmol/L (21-32) 02/22/20 07:25 Anion Gap 7 MMOL/L (8-16) L 02/22/20 07:25 BUN 8.0 mg/dl (7-18) 02/22/20 07:25 Creatinine 0.6 mg/dl (0.55-1.3) 02/22/20 07:25 Est GFR (CKD-EPI)AfAm 129.36 02/22/20 07:25 Est GFR (CKD-EPI)NonAf 111.61 02/22/20 07:25 POC Glucometer 311 UNITS (80-120) 02/23/20 12:48 Random Glucose 304 mg/dl (74-106) H 02/22/20 07:25 Hemoglobin A1c % 11.4 % (4.2-6.3) H 02/22/20 07:25 Uric Acid 4.2 mg/dl (2.6-7.2) 02/22/20 07:25 Calcium 8.4 mg/dl (8.5-10) L 02/22/20 07:25 Magnesium 1.9 mg/dL (1.8-2.4) 02/22/20 07:25 Total Bilirubin 0.6 mg/dl (0.2-1) 02/22/20 07:25 AST 15 U/L (15-37) 02/22/20 07:25 ALT 18 U/L (13-61) 02/22/20 07:25 Alkaline Phosphatase 56 U/L (45-117) D 02/22/20 07:25 C-Reactive Protein 2.9 MG/DL (0.00-0.3) H 02/21/20 09:46 Total Protein 6.5 g/dl (6.4-8.2) 02/22/20 07:25 Albumin 2.7 g/dl (3.4-5.0) L 02/22/20 07:25 COVID-19 ([facility]) Not detected (Not Detected) 02/21/20 12:00 Microbiology 02/21/20 09:51 Blood - Peripheral Venous Blood Culture - Preliminary NO GROWTH OBTAINED AFTER 48 HOURS, INCUBATION TO CONTINUE FOR 3 DAYS. 02/21/20 09:51 Blood - Peripheral Venous Blood Culture - Preliminary NO GROWTH OBTAINED AFTER 48 HOURS, INCUBATION TO CONTINUE FOR 3 DAYS. - ....Imaging Cat Scan: Report Reviewed Problem List - Problems (1) Cellulitis Code(s): L03.90 - CELLULITIS, UNSPECIFIED (2) Gout Code(s): M10.9 - GOUT, UNSPECIFIED (3) Diabetes mellitus Code(s): E11.9 - TYPE 2 DIABETES MELLITUS WITHOUT COMPLICATIONS (4) HLD (hyperlipidemia) Code(s): E78.5 - HYPERLIPIDEMIA, UNSPECIFIED (5) HTN (hypertension) Code(s): I10 - ESSENTIAL (PRIMARY) HYPERTENSION Assessment/Plan Rt knee cellulitis Bursitis - continue antibiotics - CT results noted: +Rt knee cellulitis, collection inferior to patella - monitor for improvement, if remains with edema consider drainage with fluid cultures
[2020-02-23] MEDS: oxyCODONE HCL 5 MG TABLET PO PRN (20:15)
[2020-02-23] MEDS: ATORVASTATIN CA 20 MG TABLET (FP) PO SCH (21:15)
[2020-02-23] MEDS: ACETAMINOPHEN 325 MG TABLET (FP) PO PRN (21:17)
[2020-02-23] MEDS: INSULIN (LEVEMIR) 100 UNITS/ML UNITS SQ SCH (21:25)
[2020-02-23] MEDS ORDERED: oxyCODONE HCL 5 MG TABLET PO ONE (23:13)
[2020-02-24] MEDS ORDERED: PIPERACILLIN/TAZOBACTAM 3.375 GM VIAL IVPB ONE ×3 (06:07→22:27)
[2020-02-24] MEDS ORDERED: SODIUM CHLORIDE 50 ML IVPB ONE ×3 (06:08→22:27)
[2020-02-24] MEDS: INSULIN SLIDING SCALE (NOVOLOG) 1 VIAL SQ SCH ×4 (06:17→21:04)
[2020-02-24] MEDS: PIPERACILLIN/TAZOB 3.375 GM 3.375 GM in SODIUM CHLORIDE 50 ML IVPB SCH ×3 (06:18→22:37)
[2020-02-24] MEDS: INDOMETHACIN 25 MG CAPSULE PO SCH ×2 (06:25→14:23)
[2020-02-24 09:11] LABS: CALCIUM 8.6 mg/dl (8.5-10); CREATININE 0.5 mg/dl (0.55-1.3)
[2020-02-24 09:12] LABS: BASO % 0.3 % (0-2.0); EOS % 2.1 % (0-4.5); HEMATOCRIT 38.5 % (35.4-49); HEMOGLOBIN 13.3 GM/dl (11.7-16.9); LYMPH % 20.5 % (8-40); MCH 30.9 pg (25.7-33.7); MCHC 34.5 g/dl (32.0-35.9); MEAN CELL VOLUME 89.4 fl (80-96); MONO % 7.2 % (3.8-10.2); NEUT % 69.9 % (42.8-82.8); PLATELET COUNT 427 K/MM3 (134-434); RBC 4.31 M/mm3 (4.00-5.60); RDW 11.2 % (11.9-15.9); WHITE BLOOD COUNT 9.3 K/mm3 (4.0-10.8)
--- NOTE | 2020-02-24 09:22 | PN ---
Physical Exam: SUBJECTIVE: Patient seen and examined at bedside, reports Rt knee pain/ swelling muck better, able to ambulate without any difficulties.No complains. OBJECTIVE: Vital Signs Period Temp Pulse Resp BP Sys/Wynne Pulse Ox Last 24 Hr 98.4 F-100.1 F 65-79 18-18 127-158/63-76 97-100 GENERAL: The patient is awake, alert, and fully oriented, in no acute distress. HEAD: Normal with no signs of trauma. EYES: PERRL, extraocular movements intact, sclera anicteric, conjunctiva clear. No ptosis. ENT: Ears normal, nares patent, oropharynx clear without exudates, moist mucous membranes. NECK: Trachea midline, full range of motion, supple. LUNGS: Breath sounds equal, clear to auscultation bilaterally, no wheezes, no crackles, no accessory muscle use. HEART: Regular rate and rhythm, S1, S2 without murmur, rub or gallop. ABDOMEN: Soft, nontender, nondistended, normoactive bowel sounds, no guarding, n o rebound, no hepatosplenomegaly, no masses. EXTREMITIES: 2+ pulses, warm, well-perfused, Rt knee with mild redness/ edema, + tenderness,scant serous drainage NEUROLOGICAL: Cranial nerves II through XII grossly intact. Normal speech, gait not observed. PSYCH: Normal mood, normal affect. SKIN: Warm, dry, normal turgor, no rashes or lesions noted Laboratory Results - last 24 hr 02/23/20 02/23/20 02/23/20 12:48 16:26 20:30 Sodium Potassium Chloride Carbon Dioxide Anion Gap BUN Creatinine Est GFR (CKD-EPI)AfAm Est GFR (CKD-EPI)NonAf POC Glucometer 311 359 241 Random Glucose Calcium 02/24/20 02/24/20 06:00 06:13 Sodium 138 Potassium 4.0 Chloride 101 Carbon Dioxide 26 Anion Gap 11 BUN 9.0 Creatinine 0.5 L Est GFR (CKD-EPI)AfAm 139.42 Est GFR (CKD-EPI)NonAf 120.29 POC Glucometer 162 Random Glucose 155 H Calcium 8.6 Active Medications Generic Name Dose Route Start Last Admin Trade Name Freq PRN Reason Stop Dose Admin Acetaminophen 650 mg 02/23/20 14:52 02/23/20 21:17 Tylenol - PO 650 mg Q6H PRN Administration PAIN LEVEL 1-5 Atorvastatin Calcium 20 mg 02/21/20 22:00 02/23/20 21:15 Lipitor - PO 20 mg HS REJI Administration Colchicine 0.6 mg 02/21/20 19:00 02/23/20 09:29 Colcrys PO 0.6 mg DAILY REJI Administration Enalapril Maleate 2.5 mg 02/22/20 10:00 02/23/20 09:28 Vasotec - PO 2.5 mg DAILY REJI Administration Enoxaparin Sodium 40 mg 02/21/20 20:00 02/23/20 09:28 Lovenox - SQ 40 mg DAILY REJI Administration Piperacillin Sod/Tazobactam 50 mls @ 100 mls/hr 02/22/20 15:00 02/24/20 06:18 Sod 3.375 gm/ Sodium Chloride IVPB 100 mls/hr Q8H REJI Administration Protocol Indomethacin 50 mg 02/22/20 22:00 02/24/20 06:25 Indocin - PO 02/24/20 14:01 50 mg TID REJI Administration Insulin Aspart 1 vial 02/21/20 16:30 02/24/20 06:17 Novolog Vial Sliding Scale - SQ 2 units ACHS [facility] Administration Protocol Insulin Detemir 10 units 02/23/20 22:00 02/23/20 21:25 Levemir Vial SQ 10 units HS REJI Administration Oxycodone HCl 5 mg 02/23/20 14:51 02/23/20 20:15 Roxicodone - PO 5 mg Q6H PRN Administration PAIN LEVEL 6-10 Pantoprazole Sodium 40 mg 02/21/20 18:30 02/23/20 09:29 Protonix - PO 40 mg DAILY REJI Administration Microbiology 02/21/20 09:51 Blood Culture - Preliminary Blood - Peripheral Venous NO GROWTH OBTAINED AFTER 48 HOURS, INCUBATION TO CONTINUE FOR 3 DAYS. 02/21/20 09:51 Blood Culture - Preliminary Blood - Peripheral Venous NO GROWTH OBTAINED AFTER 48 HOURS, INCUBATION TO CONTINUE FOR 3 DAYS. ASSESSMENT/PLAN: 59 year-old male with a PMH significant for HTN, HLD, Type II NIDDM, and gout, admitted for gout exacerbation and LLE cellulitis. *Gout flare r/o septic joint -seen and evaluated by rheum: indomethacin QID; colchicine daily - abnormal ESR and CRP, uric acid level - wnl -continue protonix -continuous ice pack -Ortho following, plan I&D tomorrow - NPO after MN - low grade fever overnight , added Vanco by ID, will cont on Zosyn *LLE cellulitis -knee swelling, erythema, and pain - improving - Max temp 100.1, afebrile now with no leukocytosis -US negative for DVT -CT limited by lack of contrast; cannot r/o abscess -continue Zosyn and added Vanco - ID input appreciated - afebrile with no leukocytosis - BC preliminary negative - ID input appreciated - keep RLE elevated *Hypertension-BP stable -continue enalapril *Hyperlipidemia -continue Lipitor *Type II NIDDM -HgbA1C 11.4 - FS AC & HS -Lispro sliding scale and Levemir 10 units hs FEN Fluids: PO intake adequate Electrolytes: replete as indicated Nutrition: low sodium, diabetic Covid negative DVT prophylaxis: SQ Lovenox, will hold off for sx. Physical therapy Cardiac clearance: Pt has no active cardiac or respiratory issues, remains asymptomatic. Good activity tolerance. EKG: SR, no acute ST changes CxR: No acute lung pathology RCRI score of one point puts pt at class II risk with 6%,30-day risk of , NE, or cardiac arrest Visit type - Emergency Visit Emergency Visit: Yes ED Registration Date: 02/21/20 Care time: The patient presented to the Emergency Department on the above date and was hospitalized for further evaluation of their emergent condition. - New Patient This patient is new to me today: Yes Date on this admission: 02/24/20 - Critical Care Critical Care patient: No
[2020-02-24] MEDS: ENALAPRIL MALEATE 2.5 MG TABLET (FP) PO SCH (10:13)
[2020-02-24] MEDS: ENOXAPARIN NA (PORCINE) 40 MG/0.4 ML DISP.SYRIN SQ SCH (10:13)
[2020-02-24] MEDS: COLCHICINE 0.6 MG CAP PO SCH (10:13)
[2020-02-24] MEDS: PANTOPRAZOLE 40 MG TABLET PO SCH (10:15)
[2020-02-24] MEDS ORDERED: traMADol HCL 50 MG TABLET PO PRN (10:59)
--- NOTE | 2020-02-24 12:23 | PN ---
Progress Note (short form) - Note Progress Note: ORTHOPEDIC SURGERY PROGRESS NOTE Department of Orthopedic Surgery SUBJECTIVE No acute events overnight. No complaints currently. Denies chest pain, shortness of breath, or calf pain. No nausea or vomiting. Tolerating oral intake. Had fever overnight, since resolved. Pain difficult overnight but improving today. PHYSICAL EXAMINATION General: Alert, oriented, cooperative and no distress. Right Lower Extremity: Skin warm, dry, and intact; Muscle mass equal and symmetric to contralateral side. No atrophy noted. No masses or effusions noted. Tender to palpation just inferior to the patella with erythema consistent with cellulitis and bursitis - more erythemetous and painful than yesterday; No drainage today; nontender throughout rest of extremity. No cords or calf tenderness; Mild ankle edema. Full passive and active ROM of the hip, ankle, and toes, free from pain. LROM of the knee 0-95 degrees with no pain, and then pain begins after 95 degrees of flexion, secondary to anterior knee pain and swelling; Joints stable with no pathologic laxity. EHL/TA/GS motor intact; SILT distally; 2+ DP pulses; Cap refill brisk. Tone and reflexes normal. DVT Exam: No evidence of DVT seen on physical exam; No cords or calf tenderness; No significant calf/ankle edema. Intake & Output 02/22/20 02/23/20 02/24/20 23:59 23:59 23:59 Intake Total 1730 550 Output Total 200 Balance 1730 350 Intake: IVPB 450 350 Oral 1280 200 Output: Urine 200 Void 200 Other: Voiding Method Toilet Toilet Toilet # Unmeasured Voids Void 5 1 1 Bowel Movement No No # Bowel Movements 1 Active Medications Generic Name Dose Route Start Last Admin Trade Name Freq PRN Reason Stop Dose Admin Acetaminophen 650 mg 02/23/20 14:52 02/23/20 21:17 Tylenol - PO 650 mg Q6H PRN Administration PAIN LEVEL 1-5 Atorvastatin Calcium 20 mg 02/21/20 22:00 02/23/20 21:15 Lipitor - PO 20 mg HS REJI Administration Colchicine 0.6 mg 02/21/20 19:00 02/24/20 10:13 Colcrys PO 0.6 mg DAILY REJI Administration Enalapril Maleate 2.5 mg 02/22/20 10:00 02/24/20 10:13 Vasotec - PO 2.5 mg DAILY REJI Administration Enoxaparin Sodium 40 mg 02/21/20 20:00 02/24/20 10:13 Lovenox - SQ 40 mg DAILY REJI Administration Piperacillin Sod/Tazobactam 50 mls @ 100 mls/hr 02/22/20 15:00 02/24/20 06:18 Sod 3.375 gm/ Sodium Chloride IVPB 100 mls/hr Q8H REJI Administration Protocol Indomethacin 50 mg 02/22/20 22:00 02/24/20 06:25 Indocin - PO 02/24/20 14:01 50 mg TID REJI Administration Insulin Aspart 1 vial 02/21/20 16:30 02/24/20 11:51 Novolog Vial Sliding Scale - SQ 4 units ACHS REJI Administration Protocol Insulin Detemir 10 units 02/23/20 22:00 02/23/20 21:25 Levemir Vial SQ 10 units HS REJI Administration Oxycodone HCl 5 mg 02/23/20 14:51 02/23/20 20:15 Roxicodone - PO 5 mg Q6H PRN Administration PAIN LEVEL 6-10 Pantoprazole Sodium 40 mg 02/21/20 18:30 02/24/20 10:15 Protonix - PO 40 mg DAILY REJI Administration Tramadol HCl 50 mg 02/24/20 10:59 Ultram - PO Q6H PRN PAIN LEVEL 4 - 6 Vital Signs (last) Temp Pulse Resp BP Pulse Ox 98.4 F 68 18 134/68 99 02/24/20 05:00 02/24/20 05:00 02/24/20 05:00 02/24/20 05:00 02/24/20 08:06 Laboratory (coagulation) PT with INR 12.6 SEC (10.2-13.0) 02/21/20 09:02 Laboratory 02/24/20 06:00 02/24/20 06:00 ASSESSMENT AND PLAN Mr. Yates is a 59 year old male presenting with right infrapatellar bursitis with cellulitis, slightly worsened since yesterday, and history of gout. No signs of septic joint at this time. We have reviewed the imaging and clinical findings in detail, as well as their potential implications. After appropriate informed discussion, we agreed on the following plan: 1. Due to slightly worsening erythema over the bursitis, and continued pain with fever last night, despite antibiotics, I think it is reasonable to perform an I&D at this time. We will schedule him for tomorrow morning. 2. Needs Medical Clearance; NPO Past midnight except for meds. 3. DVT ppx - Hold Lovenox past Midnight 4. Continue IV antibiotics / ID Consult appreciated 5. Continue cold compresses 6. No signs of septic joint. 7. Continue medical management All questions were answered. Thank you for involving our team in the care of th is patient. We will follow the patient with you. Please call us with questions.
--- NOTE | 2020-02-24 13:59 | PN ---
Progress Note, Physician History of Present Illness: Still with some swelling in Rt knee but erythema resolving. Temp of 100.1F last night, afebrile today. No other specific complaints. - Current Medication List Current Medications: Active Medications Acetaminophen (Tylenol -) 650 mg PO Q6H PRN PRN Reason: PAIN LEVEL 1-5 Last Admin: 02/23/20 21:17 Dose: 650 mg Documented by: Atorvastatin Calcium (Lipitor -) 20 mg PO [facility] Last Admin: 02/23/20 21:15 Dose: 20 mg Documented by: Colchicine (Colcrys) 0.6 mg PO DAILY [facility] Last Admin: 02/24/20 10:13 Dose: 0.6 mg Documented by: Enalapril Maleate (Vasotec -) 2.5 mg PO DAILY [facility] Last Admin: 02/24/20 10:13 Dose: 2.5 mg Documented by: Piperacillin Sod/Tazobactam (Sod 3.375 gm/ Sodium Chloride) 50 mls @ 100 mls/hr IVPB Q8H [facility]; Protocol Last Admin: 02/24/20 06:18 Dose: 100 mls/hr Documented by: Indomethacin (Indocin -) 50 mg PO TID [facility] Stop: 02/24/20 14:01 Last Admin: 02/24/20 06:25 Dose: 50 mg Documented by: Insulin Aspart (Novolog Vial Sliding Scale -) 1 vial SQ [facility]; Protocol Last Admin: 02/24/20 11:51 Dose: 4 units Documented by: Insulin Detemir (Levemir Vial) 10 units SQ [facility] Last Admin: 02/23/20 21:25 Dose: 10 units Documented by: Oxycodone HCl (Roxicodone -) 5 mg PO Q6H PRN PRN Reason: PAIN LEVEL 6-10 Last Admin: 02/23/20 20:15 Dose: 5 mg Documented by: Pantoprazole Sodium (Protonix -) 40 mg PO DAILY [facility] Last Admin: 02/24/20 10:15 Dose: 40 mg Documented by: Tramadol HCl (Ultram -) 50 mg PO Q6H PRN PRN Reason: PAIN LEVEL 4 - 6 - Objective Vital Signs: Vital Signs Temperature 98.4 F 02/24/20 05:00 Pulse Rate 68 02/24/20 05:00 Respiratory Rate 18 02/24/20 05:00 Blood Pressure 134/68 02/24/20 05:00 O2 Sat by Pulse Oximetry (%) 99 02/24/20 08:06 Constitutional: Yes: No Distress, Calm Cardiovascular: Yes: Regular Rate and Rhythm Respiratory: Yes: Regular Gastrointestinal: Yes: Normal Bowel Sounds, Soft Extremities: Yes: Erythema (RLE erythema improving. Rt knee with edema.) Integumentary: Yes: WNL Neurological: Yes: Alert, Oriented Labs: CBC, BMP 02/24/20 06:00 02/24/20 06:00 INR, PTT INR 1.13 (0.82-1.09) 02/21/20 09:02 Microbiology 02/21/20 09:51 Blood - Peripheral Venous Blood Culture - Preliminary NO GROWTH OBTAINED AFTER 72 HOURS, INCUBATION TO CONTINUE FOR 2 DAYS. 02/21/20 09:51 Blood - Peripheral Venous Blood Culture - Preliminary NO GROWTH OBTAINED AFTER 72 HOURS, INCUBATION TO CONTINUE FOR 2 DAYS. Problem List - Problems (1) Cellulitis Code(s): L03.90 - CELLULITIS, UNSPECIFIED (2) Gout Code(s): M10.9 - GOUT, UNSPECIFIED (3) Diabetes mellitus Code(s): E11.9 - TYPE 2 DIABETES MELLITUS WITHOUT COMPLICATIONS (4) HLD (hyperlipidemia) Code(s): E78.5 - HYPERLIPIDEMIA, UNSPECIFIED (5) HTN (hypertension) Code(s): I10 - ESSENTIAL (PRIMARY) HYPERTENSION Assessment/Plan Rt knee cellulitis Bursitis/?abscess - with low grade fever/still with Rt knee edema, erythema resolving - continue Zosyn, will add Vancomycin for MRSA coverage - I+D planned for tomorrow, Orthopedics following - send cultures - monitor renal function, wbc, temps
[2020-02-24] MEDS: VANCOMYCIN 1 GRAM (PRE-DOCKED) 1,000 MG/250 ML BAG IVPB SCH (14:23)
[2020-02-24] MEDS: ATORVASTATIN CA 20 MG TABLET (FP) PO SCH (21:03)
[2020-02-24] MEDS: INSULIN (LEVEMIR) 100 UNITS/ML UNITS SQ SCH (21:04)
[2020-02-25] MEDS: VANCOMYCIN 1 GRAM (PRE-DOCKED) 1,000 MG/250 ML BAG IVPB SCH ×2 (02:15→16:27)
[2020-02-25] MEDS ORDERED: PIPERACILLIN/TAZOBACTAM 3.375 GM VIAL IVPB ONE ×3 (06:00→20:59)
[2020-02-25] MEDS ORDERED: SODIUM CHLORIDE 50 ML IVPB ONE ×3 (06:01→20:59)
[2020-02-25] MEDS: PIPERACILLIN/TAZOB 3.375 GM 3.375 GM in SODIUM CHLORIDE 50 ML IVPB SCH ×2 (06:10→15:55)
[2020-02-25] MEDS: INSULIN SLIDING SCALE (NOVOLOG) 1 VIAL SQ SCH ×4 (06:27→21:02)
[2020-02-25 08:42] LABS: BASO % 0.5 % (0-2.0); EOS % 2.2 % (0-4.5); HEMATOCRIT 40.6 % (35.4-49); HEMOGLOBIN 14.1 GM/dl (11.7-16.9); LYMPH % 22.3 % (8-40); MCH 30.8 pg (25.7-33.7); MCHC 34.7 g/dl (32.0-35.9); MEAN CELL VOLUME 88.8 fl (80-96); MEAN PLT VOLUME 7.1 fl (7.5-11.1); PLATELET COUNT 415 K/MM3 (134-434); RBC 4.57 M/mm3 (4.00-5.60); RDW 11.4 % (11.9-15.9); WHITE BLOOD COUNT 8.1 K/mm3 (4.0-10.8)
[2020-02-25 08:46] LABS: ACTIVATED PTT 29.5 SECONDS (25.2-36.5); CALCIUM 8.5 mg/dl (8.5-10); CREATININE 0.5 mg/dl (0.55-1.3); POTASSIUM 3.4 mmol/L (3.5-5.1)
[2020-02-25 08:50] LABS: INR 1.27 (0.82-1.09); PROTHROMBIN TIME (PATIENT) 14.1 SEC (10.2-13.0)
[2020-02-25] MEDS ORDERED: INSULIN (LEVEMIR) 100 UNITS/ML UNITS SQ SCH (08:55)
[2020-02-25] MEDS ORDERED: POTASSIUM CHLORIDE TABS 20 MEQ TABLET.ER (FP) PO ONE (08:55)
[2020-02-25] MEDS: SODIUM CHLORIDE 0.9%/KCL 20 MEQ/1,000 ML INFUS.BAG IV SCH (09:04)
--- NOTE | 2020-02-25 09:59 | PN ---
Progress Note (short form) - Note Progress Note: ORTHOPEDIC SURGERY PROGRESS NOTE Department of Orthopedic Surgery SUBJECTIVE No acute events overnight. No complaints currently. Denies chest pain, shortness of breath, or calf pain. No nausea or vomiting. Tolerating oral intake. Had one instance of fever over 100, since resolved. Pain difficult overnight. PHYSICAL EXAMINATION General: Alert, oriented, cooperative and no distress. Right Lower Extremity: Skin warm, dry, and intact; Muscle mass equal and symmetric to contralateral side. No atrophy noted. No masses or effusions noted. Tender to palpation just inferior to the patella with erythema consistent with cellulitis and bursitis - more erythemetous and painful than yesterday; Positive serosanguinous active drainage today; nontender throughout rest of extremity. No cords or calf tenderness; Mild ankle edema. Full passive and active ROM of the hip, ankle, and toes, free from pain. LROM of the knee 0-70 degrees with no pain, and then pain begins after 70 degrees of flexion, secondary to anterior knee pain and swelling; Joints stable with no pathologic laxity. EHL/TA/GS motor intact; SILT distally; 2+ DP pulses; Cap refill brisk. Tone and reflexes normal. DVT Exam: No evidence of DVT seen on physical exam; No cords or calf tenderness; No significant calf/ankle edema. Intake & Output 02/23/20 02/24/20 02/25/20 23:59 23:59 23:59 Intake Total 550 150 300 Output Total 200 200 Balance 350 -50 300 Intake: IVPB 350 300 Oral 200 150 0 Output: Urine 200 200 Void 200 200 Other: Voiding Method Toilet Toilet Urinal # Unmeasured Voids Void 1 1 1 Bowel Movement No No No # Bowel Movements 1 Active Medications Generic Name Dose Route Start Last Admin Trade Name Freq PRN Reason Stop Dose Admin Acetaminophen 650 mg 02/23/20 14:52 02/23/20 21:17 Tylenol - PO 650 mg Q6H PRN Administration PAIN LEVEL 1-5 Atorvastatin Calcium 20 mg 02/21/20 22:00 02/24/20 21:03 Lipitor - PO 20 mg HS REJI Administration Colchicine 0.6 mg 02/21/20 19:00 02/24/20 10:13 Colcrys PO 0.6 mg DAILY REJI Administration Enalapril Maleate 2.5 mg 02/22/20 10:00 02/24/20 10:13 Vasotec - PO 2.5 mg DAILY REJI Administration Piperacillin Sod/Tazobactam 50 mls @ 100 mls/hr 02/22/20 15:00 02/25/20 06:10 Sod 3.375 gm/ Sodium Chloride IVPB 100 mls/hr Q8H REJI Administration Protocol Vancomycin HCl 1,000 mg in 250 mls @ 166.667 mls/hr 02/24/20 14:00 02/25/20 02:15 Vancomycin (Pre-Docked) IVPB 166.667 mls/hr Q12H REJI Administration Protocol Potassium Chloride/Sodium Chloride 20 meq in 1,000 mls @ 125 mls/hr 02/25/20 09:00 02/25/20 09:04 Ns+20 Meq Kcl - IV 125 mls/hr ASDIR REJI Administration Insulin Aspart 1 vial 02/21/20 16:30 02/25/20 06:27 Novolog Vial Sliding Scale - SQ Not Given ACHS REJI Protocol Insulin Detemir 15 units 02/25/20 08:55 Levemir Vial SQ HS REJI Oxycodone HCl 5 mg 02/23/20 14:51 02/23/20 20:15 Roxicodone - PO 5 mg Q6H PRN Administration PAIN LEVEL 6-10 Pantoprazole Sodium 40 mg 02/21/20 18:30 02/24/20 10:15 Protonix - PO 40 mg DAILY REJI Administration Tramadol HCl 50 mg 02/24/20 10:59 Ultram - PO Q6H PRN PAIN LEVEL 4 - 6 Vital Signs (last) Temp Pulse Resp BP Pulse Ox 99.2 F 66 18 128/69 98 02/25/20 06:00 02/25/20 06:00 02/25/20 06:00 02/25/20 06:00 02/25/20 06:00 Laboratory (coagulation) PT with INR 14.1 SEC (10.2-13.0) H 02/25/20 07:05 Laboratory 02/25/20 07:05 02/25/20 07:05 ASSESSMENT AND PLAN Mr. Yates is a 59 year old male presenting with right infrapatellar bursitis with cellulitis, further worsened since yesterday, and history of gout. No signs of septic joint at this time. We have reviewed the imaging and clinical findings in detail, as well as their potential implications. After appropriate informed discussion, we agreed on the following plan: 1. Due to slightly worsening erythema over the bursitis, and continued pain with one episode of fever, despite antibiotics, I think it is reasonable to perform an I&D at this time. He is scheduled for an I&D in the OR today. 2. Needs Medical Clearance; NPO except for meds. 3. DVT ppx - Hold Lovenox 4. Continue IV antibiotics / ID Consult appreciated 5. Continue cold compresses 6. No signs of septic joint. 7. Continue medical management All questions were answered. Thank you for involving our team in the care of this patient. We will follow the patient with you. Please call us with questions.
--- NOTE | 2020-02-25 10:15 | PN ---
Physical Exam: SUBJECTIVE: Patient seen and examined. No fevers/chills. Has knee pain. OBJECTIVE: K 3.4 Vital Signs Period Temp Pulse Resp BP Sys/Wynne Pulse Ox Last 24 Hr 98.1 F-99.6 F 59-71 18-18 126-140/61-77 96-100 GENERAL: The patient is awake, alert, and fully oriented, in no acute distress. HEAD: Normal with no signs of trauma. EYES: PERRL, extraocular movements intact, sclera anicteric, conjunctiva clear. No ptosis. ENT: Ears normal, nares patent, oropharynx clear without exudates, moist mucous membranes. NECK: Trachea midline, full range of motion, supple. LUNGS: Breath sounds equal, clear to auscultation bilaterally, no wheezes, no crackles, no accessory muscle use. HEART: Regular rate and rhythm, S1, S2 without murmur, rub or gallop. ABDOMEN: Soft, nontender, nondistended, normoactive bowel sounds, no guarding, no rebound, no hepatosplenomegaly, no masses. EXTREMITIES: 2+ pulses, warm, well-perfused. Right knee is warm and erythematous, no discharge. Able to flex to about 45d with great difficulty. NEUROLOGICAL: Cranial nerves II through XII grossly intact. Normal speech, gait not observed. PSYCH: Normal mood, normal affect. SKIN: Warm, dry, normal turgor, no rashes or lesions noted Laboratory Results - last 24 hr 02/24/20 02/24/20 02/24/20 06:00 11:27 16:47 WBC RBC Hgb Hct MCV MCH MCHC RDW Plt Count MPV Absolute Neuts (auto) Neutrophils % Lymphocytes % Monocytes % Eosinophils % Basophils % PT with INR INR PTT (Actin FS) Sodium Potassium Chloride Carbon Dioxide Anion Gap BUN Creatinine Est GFR (CKD-EPI)AfAm Est GFR (CKD-EPI)NonAf POC Glucometer 247 275 Random Glucose Calcium Troponin I < 0.03 02/24/20 02/25/20 02/25/20 20:50 06:13 07:05 WBC RBC Hgb Hct MCV MCH MCHC RDW Plt Count MPV Absolute Neuts (auto) Neutrophils % Lymphocytes % Monocytes % Eosinophils % Basophils % PT with INR 14.1 H INR 1.27 H PTT (Actin FS) 29.5 Sodium Potassium Chloride Carbon Dioxide Anion Gap BUN Creatinine Est GFR (CKD-EPI)AfAm Est GFR (CKD-EPI)NonAf POC Glucometer 279 192 Random Glucose Calcium Troponin I 02/25/20 02/25/20 07:05 07:05 WBC 8.1 RBC 4.57 Hgb 14.1 Hct 40.6 MCV 88.8 MCH 30.8 MCHC 34.7 RDW 11.4 L Plt Count 415 MPV 7.1 L Absolute Neuts (auto) 5.3 Neutrophils % 65.0 Lymphocytes % 22.3 Monocytes % 10.0 Eosinophils % 2.2 Basophils % 0.5 PT with INR INR PTT (Actin FS) Sodium 136 Potassium 3.4 L Chloride 102 Carbon Dioxide 24 Anion Gap 10 BUN 6.0 L Creatinine 0.5 L Est GFR (CKD-EPI)AfAm 139.42 Est GFR (CKD-EPI)NonAf 120.29 POC Glucometer Random Glucose 194 H Calcium 8.5 Troponin I Active Medications Generic Name Dose Route Start Last Admin Trade Name Freq PRN Reason Stop Dose Admin Acetaminophen 650 mg 02/23/20 14:52 02/23/20 21:17 Tylenol - PO 650 mg Q6H PRN Administration PAIN LEVEL 1-5 Atorvastatin Calcium 20 mg 02/21/20 22:00 02/24/20 21:03 Lipitor - PO 20 mg HS REJI Administration Colchicine 0.6 mg 02/21/20 19:00 02/24/20 10:13 Colcrys PO 0.6 mg DAILY REJI Administration Enalapril Maleate 2.5 mg 02/22/20 10:00 02/24/20 10:13 Vasotec - PO 2.5 mg DAILY REJI Administration Piperacillin Sod/Tazobactam 50 mls @ 100 mls/hr 02/22/20 15:00 02/25/20 06:10 Sod 3.375 gm/ Sodium Chloride IVPB 100 mls/hr Q8H REJI Administration Protocol Vancomycin HCl 1,000 mg in 250 mls @ 166.667 mls/hr 02/24/20 14:00 02/25/20 02:15 Vancomycin (Pre-Docked) IVPB 166.667 mls/hr Q12H REJI Administration Protocol Potassium Chloride/Sodium Chloride 20 meq in 1,000 mls @ 125 mls/hr 02/25/20 09:00 02/25/20 09:04 Ns+20 Meq Kcl - IV 125 mls/hr ASDIR REJI Administration Insulin Aspart 1 vial 02/21/20 16:30 02/25/20 06:27 Novolog Vial Sliding Scale - SQ Not Given ACHS [facility] Protocol Insulin Detemir 15 units 02/25/20 08:55 Levemir Vial SQ HS REJI Oxycodone HCl 5 mg 02/23/20 14:51 02/23/20 20:15 Roxicodone - PO 5 mg Q6H PRN Administration PAIN LEVEL 6-10 Pantoprazole Sodium 40 mg 02/21/20 18:30 02/24/20 10:15 Protonix - PO 40 mg DAILY REJI Administration Tramadol HCl 50 mg 02/24/20 10:59 Ultram - PO Q6H PRN PAIN LEVEL 4 - 6 ASSESSMENT/PLAN: ASSESSMENT/PLAN: 59 year-old male with a PMH significant for HTN, HLD, uncontrolled Type II NIDDM, and gout, admitted with right knee bursitis and likely abscess. Right knee bursitis, cellulitis, possible abscess --seen and evaluated by rheum: indomethacin QID; colchicine daily --IV Tylenol for pain --continue protonix --continuous ice pack --Cont Zosyn (02/20 - ), Vanco (02/23- ) --For OR washout today Hypertension --BP stable --continue enalapril Hyperlipidemia --continue Lipitor Type II NIDDM --HgbA1C 11.4%! --Still requiring significant sliding scale coverage --Increase Levemir to 15 units hs FEN Fluids: PO intake adequate Electrolytes: replete as indicated Nutrition: low sodium, diabetic DVT prophylaxis: Hold Lovenox for OR today Physical therapy Dispo: Continues to require inpatient care. Full code. Addendum: S/p OR washout with significant pus (~15 mL) expressed. Change web roll/ 4x4/ SONIYA if saturated. Continue ice, elevation. May need PICC/extended abx - discuss w ID. May resume Lovenox 818 am. Problem List - Problems (1) Abscess of right lower extremity Problems reviewed: Yes Code(s): L02.415 - CUTANEOUS ABSCESS OF RIGHT LOWER LIMB Visit type - Emergency Visit Emergency Visit: Yes ED Registration Date: 02/21/20 Care time: The patient presented to the Emergency Department on the above date and was hospitalized for further evaluation of their emergent condition. - New Patient This patient is new to me today: Yes Date on this admission: 03/11/20 - Critical Care Critical Care patient: No - Discharge Referral Referred to [facility] Med [facility].: No
[2020-02-25] MEDS: ENALAPRIL MALEATE 2.5 MG TABLET (FP) PO SCH (10:31)
[2020-02-25] MEDS ORDERED: PROPOFOL 20 ML ONE (12:31)
[2020-02-25] MEDS ORDERED: MIDAZOLAM HCL 2 MG/2 ML SINGLE DOSE VIAL ONE (12:31)
[2020-02-25] MEDS ORDERED: SUCCINYLCHOLINE CHLORIDE 200 MG/10 ML SYRINGE ONE (12:32)
--- NOTE | 2020-02-25 12:38 | OPR ---
DATE OF OPERATION: 02/25/2020 TITLE OF OPERATION: Right knee Infrapatellar bursitis/abscess I&D deep abscess, bursa, hematoma - [id number] PREOPERATIVE DIAGNOSIS: Right Infrapatellar bursitis and abscess POSTOPERATIVE DIAGNOSIS: Right Infrapatellar bursitis and abscess SURGEON: Mamadou Hidalgo DO [employer] MANAGER: Jim Whitehead DO ANESTHESIA: General anesthesia SPECIMEN: Abscess Cultures x 3 PROSTHETIC DEVICE/IMPLANT: None COMPLICATIONS: none EBL: minimal INDICATIONS FOR SURGERY: Mr. Yates is a 59-year-old male, who presented to the emergency room with an infrapatellar bursitis with cellulitis. He was admitted to the hospital and was started on IV Antibiotics and showed improvement in symptoms. He then developed a sinus with drainage, and had one episode of fever. At that time, we decided to proceed with an I&D of the bursa/abscess. The treatment options and alternatives, surgical procedure, risks and benefits, and post-operative course were discussed with Mr. Yates. General risks associated orthopaedic surgery were explained, but in particular we discussed the possibility of needing further washout or evaluation for other sites of infection. They elected to proceed and consents were signed. The leg was marked. He was then brought back to the operating room and placed under general anesthesia. Mr. Yates was positioned on the OR table with care to pad all bony prominences. The extremity was then prepped twice with Betadine and draped in usual sterile fashion. A time out was performed. An incision was made over the palpable area of fluctuance, with guidance from the location on prior CT with a 15 blade scalpel. Dissection was performed with Metzenbaum scissors and hemostasis was maintained. Blunt dissection was taken down into the fluid pocket just deep to the fascia. The abscess expressed approximately 20 cc's of pus. Cultures were sent. The wound was thoroughly irrigated and debrided. 10 liters of saline irrigation was used. The wound was clean. Contaminated equipment was passed off, and gloves and drapes were changed. The wound was closed with 3-0 Nylon simple stitches, and dressed with xeroform, 4x4 sterile gauze, an ABD webril, and SONIYA bandage. Postoperative plan: Postoperative Care: Operative cultures are pending. We will follow him clinically and trend his WBC and CRP. He does not have restrictions in position or weight bearing, but elevation and ice of the right knee is ideal for the first few days. Will follow closely. Mamadou Hidalgo, DO
[2020-02-25] MEDS ORDERED: KETOROLAC TROMETHAMINE 30 MG/1 ML VIAL ONE (12:57)
[2020-02-25] MEDS ORDERED: LIDOCAINE HCL/PF 2% SDV 5ML VIAL ONE (12:57)
[2020-02-25] MEDS ORDERED: ONDANSETRON 4 MG/2 ML VIAL ONE (12:57)
[2020-02-25] MEDS ORDERED: ONDANSETRON 4 MG/2 ML VIAL IVPUSH PRN (14:02)
[2020-02-25] MEDS ORDERED: LACTATED RINGERS SOLUTION 1,000 ML IV SCH (14:15)
[2020-02-25] MEDS ORDERED: VANCOMYCIN 1 GM in NS (PRE-DOCKED) 1,000 MG/250 ML IVPB ONE (14:20)
--- NOTE | 2020-02-25 16:21 | PN ---
Progress Note, Physician History of Present Illness: stable post op - Current Medication List Current Medications: Active Medications Acetaminophen (Tylenol -) 650 mg PO Q6H PRN PRN Reason: PAIN LEVEL 1-5 Last Admin: 02/23/20 21:17 Dose: 650 mg Documented by: Atorvastatin Calcium (Lipitor -) 20 mg PO HS [facility] Last Admin: 02/24/20 21:03 Dose: 20 mg Documented by: Colchicine (Colcrys) 0.6 mg PO DAILY [facility] Last Admin: 02/24/20 10:13 Dose: 0.6 mg Documented by: Enalapril Maleate (Vasotec -) 2.5 mg PO DAILY [facility] Last Admin: 02/25/20 10:31 Dose: 2.5 mg Documented by: Enoxaparin Sodium (Lovenox -) 40 mg SQ DAILY [facility] Fentanyl (Sublimaze Injection -) 50 mcg IVPUSH [id number] PRN PRN Reason: PAIN-PACU ORDER X 4 DOSES ONLY Piperacillin Sod/Tazobactam (Sod 3.375 gm/ Sodium Chloride) 50 mls @ 100 mls/hr IVPB Q8H [facility]; Protocol Last Admin: 02/25/20 06:10 Dose: 100 mls/hr Documented by: Vancomycin HCl (Vancomycin (Pre-Docked)) 1,000 mg in 250 mls @ 166.667 mls/hr IVPB Q12H [facility]; Protocol Last Admin: 02/25/20 02:15 Dose: 166.667 mls/hr Documented by: Potassium Chloride/Sodium Chloride (Ns+20 Meq Kcl -) 20 meq in 1,000 mls @ 125 mls/hr IV ASDIR [facility] Last Admin: 02/25/20 09:04 Dose: 125 mls/hr Documented by: Lactated Ringer's (Lactated Ringers Solution) 1,000 mls @ 125 mls/hr IV ASDIR [facility] Insulin Aspart (Novolog Vial Sliding Scale -) 1 vial SQ [facility]; Protocol Last Admin: 02/25/20 14:40 Dose: 2 vial Documented by: Insulin Detemir (Levemir Vial) 15 units SQ [facility] Ondansetron HCl (Zofran Injection) 4 mg IVPUSH Q6H PRN PRN Reason: NAUSEA AND/OR VOMITING Oxycodone HCl (Roxicodone -) 5 mg PO Q6H PRN PRN Reason: PAIN LEVEL 6-10 Last Admin: 02/23/20 20:15 Dose: 5 mg Documented by: Pantoprazole Sodium (Protonix -) 40 mg PO DAILY [facility] Last Admin: 02/24/20 10:15 Dose: 40 mg Documented by: Tramadol HCl (Ultram -) 50 mg PO Q6H PRN PRN Reason: PAIN LEVEL 4 - 6 - Objective Vital Signs: Vital Signs Temperature 98.7 F 02/25/20 15:00 Pulse Rate 59 L 02/25/20 15:00 Respiratory Rate 02/25/20 15:00 Blood Pressure 123/66 02/25/20 15:00 O2 Sat by Pulse Oximetry (%) 98 02/25/20 15:00 Constitutional: Yes: No Distress, Calm Cardiovascular: Yes: S1, S2 Respiratory: Yes: Regular, CTA Bilaterally Gastrointestinal: Yes: Normal Bowel Sounds, Soft Musculoskeletal: Yes: WNL Extremities: Yes: WNL Wound/Incision: Yes: Dressing Dry and Intact Neurological: Yes: Alert, Oriented Psychiatric: Yes: Alert, Oriented Labs: CBC, BMP 02/25/20 07:05 02/25/20 07:05 INR, PTT INR 1.27 (0.82-1.09) H 02/25/20 07:05 Assessment/Plan Problem List - Problems (1) Cellulitis Code(s): L03.90 - CELLULITIS, UNSPECIFIED (2) Gout Code(s): M10.9 - GOUT, UNSPECIFIED (3) Diabetes mellitus Code(s): E11.9 - TYPE 2 DIABETES MELLITUS WITHOUT COMPLICATIONS (4) HLD (hyperlipidemia) Code(s): E78.5 - HYPERLIPIDEMIA, UNSPECIFIED (5) HTN (hypertension) Code(s): I10 - ESSENTIAL (PRIMARY) HYPERTENSION Assessment/Plan Rt knee cellulitis Bursitis/?abscess await for cx reports continue abx monitor vanco levels rest as per the team
[2020-02-25] MEDS: COLCHICINE 0.6 MG CAP PO SCH (16:26)
[2020-02-25] MEDS: PANTOPRAZOLE 40 MG TABLET PO SCH (16:27)
[2020-02-25] MEDS: ATORVASTATIN CA 20 MG TABLET (FP) PO SCH (21:02)
[2020-02-26] MEDS: oxyCODONE HCL 5 MG TABLET PO PRN (00:56)
[2020-02-26] MEDS: ACETAMINOPHEN 325 MG TABLET (FP) PO PRN ×2 (00:58→23:38)
[2020-02-26] MEDS: VANCOMYCIN 1 GRAM (PRE-DOCKED) 1,000 MG/250 ML BAG IVPB SCH ×2 (02:27→14:10)
[2020-02-26] MEDS ORDERED: PIPERACILLIN/TAZOBACTAM 3.375 GM VIAL IVPB ONE ×3 (05:50→20:39)
[2020-02-26] MEDS ORDERED: SODIUM CHLORIDE 50 ML IVPB ONE ×3 (05:50→20:39)
[2020-02-26] MEDS: PIPERACILLIN/TAZOB 3.375 GM 3.375 GM in SODIUM CHLORIDE 50 ML IVPB SCH ×4 (06:02→22:01)
[2020-02-26 08:35] LABS: BASO % 0.9 % (0-2.0); EOS % 2.9 % (0-4.5); HEMATOCRIT 39.1 % (35.4-49); HEMOGLOBIN 13.4 GM/dl (11.7-16.9); MCH 30.4 pg (25.7-33.7); MCHC 34.3 g/dl (32.0-35.9); MEAN CELL VOLUME 88.5 fl (80-96); MEAN PLT VOLUME 6.9 fl (7.5-11.1); MONO % 11.8 % (3.8-10.2); NEUT % 60.4 % (42.8-82.8); PLATELET COUNT 430 K/MM3 (134-434); RBC 4.42 M/mm3 (4.00-5.60); RDW 11.4 % (11.9-15.9)
[2020-02-26 08:36] LABS: CALCIUM 8.3 mg/dl (8.5-10); CREATININE 0.7 mg/dl (0.55-1.3); POTASSIUM 3.9 mmol/L (3.5-5.1)
--- NOTE | 2020-02-26 08:41 | PN ---
Progress Note (short form) - Note Progress Note: ORTHOPEDIC SURGERY PROGRESS NOTE Department of Orthopedic Surgery SUBJECTIVE No acute events overnight. No complaints currently. Denies chest pain, shortness of breath, or calf pain. No nausea or vomiting. Tolerating oral intake. POD 1 from Right knee I&D. Pain improved, patient able to ambulate on his own this morning without discomfort. PHYSICAL EXAMINATION General: Alert, oriented, cooperative and no distress. Right Lower Extremity: Dressing c/d/i; Changed today. Mild drainage on 4x4 d ressings, no active drainage. Sutures intact, wound healing with erythema and mild swelling around the wound site. Muscle mass equal and symmetric to contralateral side. No atrophy noted. No masses or effusions noted. Tender to palpation over the wound; nontender throughout rest of extremity. No cords or calf tenderness; No ankle edema. Full passive and active ROM of the hip, ankle, and toes, free from pain. LROM of the knee secondary to swelling; Joints stable with no pathologic laxity. EHL/TA/GS motor intact; SILT distally; 2+ DP pulses; Cap refill brisk. Tone and reflexes normal. DVT Exam: No evidence of DVT seen on physical exam; No cords or calf tenderness; No significant calf/ankle edema. Intake & Output 02/24/20 02/25/20 02/26/20 23:59 23:59 23:59 Intake Total 150 2425 1500 Output Total 200 1200 Balance -50 1225 1500 Intake: IV 1525 1500 Lactated Ringers Solution 525 1,000 ml @ 125 mls/hr IV ASDIR REJI Rx#: [id number] NS+20 MEQ KCL - 20 meq In 1500 1,000 ml @ 125 mls/hr IV ASDIR REJI Rx#: [id number] IVPB 400 Oral 150 500 Output: Urine 200 1200 Void 200 1200 Other: Voiding Method Toilet Urinal Urinal # Unmeasured Voids Void 1 1 Bowel Movement No No Active Medications Generic Name Dose Route Start Last Admin Trade Name Freq PRN Reason Stop Dose Admin Acetaminophen 650 mg 02/23/20 14:52 02/26/20 00:58 Tylenol - PO 650 mg Q6H PRN Administration PAIN LEVEL 1-5 Atorvastatin Calcium 20 mg 02/21/20 22:00 02/25/20 21:02 Lipitor - PO 20 mg HS REJI Administration Colchicine 0.6 mg 02/21/20 19:00 02/25/20 16:26 Colcrys PO 0.6 mg DAILY REJI Administration Enalapril Maleate 2.5 mg 02/22/20 10:00 02/25/20 10:31 Vasotec - PO 2.5 mg DAILY REJI Administration Enoxaparin Sodium 40 mg 02/26/20 10:00 Lovenox - SQ DAILY REJI Piperacillin Sod/Tazobactam 50 mls @ 100 mls/hr 02/22/20 15:00 02/26/20 06:02 Sod 3.375 gm/ Sodium Chloride IVPB 100 mls/hr Q8H REJI Administration Protocol Vancomycin HCl 1,000 mg in 250 mls @ 166.667 mls/hr 02/24/20 14:00 02/26/20 02:27 Vancomycin (Pre-Docked) IVPB 166.667 mls/hr Q12H REJI Administration Protocol Potassium Chloride/Sodium Chloride 20 meq in 1,000 mls @ 125 mls/hr 02/25/20 09:00 02/25/20 09:04 Ns+20 Meq Kcl - IV 125 mls/hr ASDIR REJI Administration Lactated Ringer's 1,000 mls @ 125 mls/hr 02/25/20 14:15 Lactated Ringers Solution IV ASDIR REJI Insulin Aspart 1 vial 02/21/20 16:30 02/25/20 21:02 Novolog Vial Sliding Scale - SQ 10 units ACHS [facility] Administration Protocol Insulin Detemir 15 units 02/25/20 08:55 02/25/20 21:02 Levemir Vial SQ 15 units HS REJI Administration Ondansetron HCl 4 mg 02/25/20 14:02 Zofran Injection IVPUSH Q6H PRN NAUSEA AND/OR VOMITING Oxycodone HCl 5 mg 02/23/20 14:51 02/26/20 00:56 Roxicodone - PO 5 mg Q6H PRN Administration PAIN LEVEL 6-10 Pantoprazole Sodium 40 mg 02/21/20 18:30 02/25/20 16:27 Protonix - PO 40 mg DAILY REJI Administration Tramadol HCl 50 mg 02/24/20 10:59 Ultram - PO Q6H PRN PAIN LEVEL 4 - 6 Vital Signs (last) Temp Pulse Resp BP Pulse Ox 98.3 F 65 18 146/75 98 02/26/20 06:00 02/26/20 06:00 02/26/20 06:00 02/26/20 06:00 02/26/20 06:00 Laboratory (coagulation) PT with INR 14.1 SEC (10.2-13.0) H 02/25/20 07:05 Laboratory 02/26/20 07:09 ASSESSMENT AND PLAN Mr. Yates is a 59 year old male s/p Right infrapatellar bursitis / abscess I&D, POD 1 1. Pain Control 3. DVT ppx 4. Continue IV antibiotics / F/U abscess cultures 5. Continue cold compresses 6. No signs of septic joint. 7. Continue medical management All questions were answered. Thank you for involving our team in the care of this patient. We will follow the patient with you. Please call us with questions.
--- NOTE | 2020-02-26 09:05 | PN ---
Physical Exam: SUBJECTIVE: Patient seen and examined at bedside. Feels better, pain is much improved. No fever, sweats, chills. OBJECTIVE: Vital Signs Period Temp Pulse Resp BP Sys/Wynne Pulse Ox Last 24 Hr 98.2 F-99.5 F 59-72 18-20 104-150/55-75 96-100 GENERAL: Awake, alert, and fully oriented, in no acute distress. HEART: Regular rate and rhythm, normal S1 and S2 ABDOMEN: Soft, nontender, not distended LUE: left second finger MCP swelling and erythema resolved RLE: surgical dressing c/d/i, ice pack; surgical site was seen this am by Dr. Hidalgo, dressing left in place; ankle edema resolved NEUROLOGICAL: Cranial nerves II-XII intact. Normal speech. Laboratory Results - last 24 hr 02/25/20 02/25/20 02/25/20 11:41 14:38 16:31 WBC RBC Hgb Hct MCV MCH MCHC RDW Plt Count MPV Absolute Neuts (auto) Neutrophils % Lymphocytes % Monocytes % Eosinophils % Basophils % Sodium Potassium Chloride Carbon Dioxide Anion Gap BUN Creatinine Est GFR (CKD-EPI)AfAm Est GFR (CKD-EPI)NonAf POC Glucometer 176 168 274 Random Glucose Calcium 02/25/20 02/26/20 02/26/20 20:47 05:55 07:09 WBC 9.0 RBC 4.42 Hgb 13.4 Hct 39.1 MCV 88.5 MCH 30.4 MCHC 34.3 RDW 11.4 L Plt Count 430 MPV 6.9 L Absolute Neuts (auto) 5.3 Neutrophils % 60.4 Lymphocytes % 24.0 Monocytes % 11.8 H Eosinophils % 2.9 Basophils % 0.9 Sodium Potassium Chloride Carbon Dioxide Anion Gap BUN Creatinine Est GFR (CKD-EPI)AfAm Est GFR (CKD-EPI)NonAf POC Glucometer 353 157 Random Glucose Calcium 02/26/20 07:09 WBC RBC Hgb Hct MCV MCH MCHC RDW Plt Count MPV Absolute Neuts (auto) Neutrophils % Lymphocytes % Monocytes % Eosinophils % Basophils % Sodium 138 Potassium 3.9 Chloride 102 Carbon Dioxide 27 Anion Gap 9 BUN 7.0 Creatinine 0.7 Est GFR (CKD-EPI)AfAm 121.41 Est GFR (CKD-EPI)NonAf 104.76 POC Glucometer Random Glucose 155 H Calcium 8.3 L Active Medications Generic Name Dose Route Start Last Admin Trade Name Freq PRN Reason Stop Dose Admin Acetaminophen 650 mg 02/23/20 14:52 02/26/20 00:58 Tylenol - PO 650 mg Q6H PRN Administration PAIN LEVEL 1-5 Atorvastatin Calcium 20 mg 02/21/20 22:00 02/25/20 21:02 Lipitor - PO 20 mg HS REJI Administration Colchicine 0.6 mg 02/21/20 19:00 02/25/20 16:26 Colcrys PO 0.6 mg DAILY REJI Administration Enalapril Maleate 2.5 mg 02/22/20 10:00 02/25/20 10:31 Vasotec - PO 2.5 mg DAILY REJI Administration Enoxaparin Sodium 40 mg 02/26/20 10:00 Lovenox - SQ DAILY REJI Piperacillin Sod/Tazobactam 50 mls @ 100 mls/hr 02/22/20 15:00 02/26/20 06:02 Sod 3.375 gm/ Sodium Chloride IVPB 100 mls/hr Q8H REJI Administration Protocol Vancomycin HCl 1,000 mg in 250 mls @ 166.667 mls/hr 02/24/20 14:00 02/26/20 02:27 Vancomycin (Pre-Docked) IVPB 166.667 mls/hr Q12H REJI Administration Protocol Potassium Chloride/Sodium Chloride 20 meq in 1,000 mls @ 125 mls/hr 02/25/20 09:00 02/25/20 09:04 Ns+20 Meq Kcl - IV 125 mls/hr ASDIR REJI Administration Lactated Ringer's 1,000 mls @ 125 mls/hr 02/25/20 14:15 Lactated Ringers Solution IV ASDIR REJI Insulin Aspart 1 vial 02/21/20 16:30 02/25/20 21:02 Novolog Vial Sliding Scale - SQ 10 units ACHS REJI Administration Protocol Insulin Detemir 15 units 02/25/20 08:55 02/25/20 21:02 Levemir Vial SQ 15 units HS REJI Administration Ondansetron HCl 4 mg 02/25/20 14:02 Zofran Injection IVPUSH Q6H PRN NAUSEA AND/OR VOMITING Oxycodone HCl 5 mg 02/23/20 14:51 02/26/20 00:56 Roxicodone - PO 5 mg Q6H PRN Administration PAIN LEVEL 6-10 Pantoprazole Sodium 40 mg 02/21/20 18:30 02/25/20 16:27 Protonix - PO 40 mg DAILY REJI Administration Tramadol HCl 50 mg 02/24/20 10:59 Ultram - PO Q6H PRN PAIN LEVEL 4 - 6 ASSESSMENT/PLAN: 59 year-old male with a PMH significant for HTN, HLD, Type II NIDDM, and gout, admitted for right knee infrapatellar bursitis and abscess, now s/p I&D on 02/25/[address] Hidalgo. Right knee infrapatellar bursitis and abscess s/p I&D --POD #1; 20 cc's pus drained, mild drainage today --wound cultures (+) GPC in clusters --continue Vanc (day #2) and Zosyn (day #5); vanc trough ordered --pain management with Tylenol, oxycodone PRN Gout --h/o gouty arthritis --continue daily colchicine --stopped indomethacin --seen and evaluated by rheum Hypertension --BP stable --continue enalapril Hyperlipidemia --continue Lipitor Type II NIDDM --FS running high, increase Levemir to 20U qhs --Novolog sliding scale coverage COVID --02/20 swab negative FEN Fluids: PO intake adequate Electrolytes: replete as indicated Nutrition: low sodium, diabetic DVT prophylaxis: subq lovenox Physical therapy Dispo: continues to require inpatient care. Full code. Visit type - Emergency Visit Emergency Visit: Yes ED Registration Date: 02/21/20 Care time: The patient presented to the Emergency Department on the above date and was hospitalized for further evaluation of their emergent condition. - New Patient This patient is new to me today: No - Critical Care Critical Care patient: No
[2020-02-26] MEDS: SODIUM CHLORIDE 0.9%/KCL 20 MEQ/1,000 ML INFUS.BAG IV SCH (09:20)
[2020-02-26] MEDS: PANTOPRAZOLE 40 MG TABLET PO SCH (10:57)
[2020-02-26] MEDS: COLCHICINE 0.6 MG CAP PO SCH (10:57)
[2020-02-26] MEDS: ENALAPRIL MALEATE 2.5 MG TABLET (FP) PO SCH (10:57)
[2020-02-26] MEDS: ENOXAPARIN NA (PORCINE) 40 MG/0.4 ML DISP.SYRIN SQ SCH (10:58)
[2020-02-26] MEDS: INSULIN SLIDING SCALE (NOVOLOG) 1 VIAL SQ SCH ×3 (12:28→21:24)
--- NOTE | 2020-02-26 13:08 | PN ---
Progress Note, Physician - Current Medication List Current Medications: Active Medications Acetaminophen (Tylenol -) 650 mg PO Q6H PRN PRN Reason: PAIN LEVEL 1-5 Last Admin: 02/26/20 00:58 Dose: 650 mg Documented by: Atorvastatin Calcium (Lipitor -) 20 mg PO HS [facility] Last Admin: 02/25/20 21:02 Dose: 20 mg Documented by: Colchicine (Colcrys) 0.6 mg PO DAILY [facility] Last Admin: 02/26/20 10:57 Dose: 0.6 mg Documented by: Enalapril Maleate (Vasotec -) 2.5 mg PO DAILY [facility] Last Admin: 02/26/20 10:57 Dose: 2.5 mg Documented by: Enoxaparin Sodium (Lovenox -) 40 mg SQ DAILY [facility] Last Admin: 02/26/20 10:58 Dose: 40 mg Documented by: Piperacillin Sod/Tazobactam (Sod 3.375 gm/ Sodium Chloride) 50 mls @ 100 mls/hr IVPB Q8H [facility]; Protocol Last Admin: 02/26/20 06:02 Dose: 100 mls/hr Documented by: Vancomycin HCl (Vancomycin (Pre-Docked)) 1,000 mg in 250 mls @ 166.667 mls/hr IVPB Q12H [facility]; Protocol Last Admin: 02/26/20 02:27 Dose: 166.667 mls/hr Documented by: Potassium Chloride/Sodium Chloride (Ns+20 Meq Kcl -) 20 meq in 1,000 mls @ 125 mls/hr IV ASDIR [facility] Last Admin: 02/25/20 09:04 Dose: 125 mls/hr Documented by: Lactated Ringer's (Lactated Ringers Solution) 1,000 mls @ 125 mls/hr IV ASDIR [facility] Insulin Aspart (Novolog Vial Sliding Scale -) [address] [facility]; Protocol Last Admin: 02/26/20 12:28 Dose: 8 units Documented by: Insulin Detemir (Levemir Vial) 15 units SQ [facility] Last Admin: 02/25/20 21:02 Dose: 15 units Documented by: Ondansetron HCl (Zofran Injection) 4 mg IVPUSH Q6H PRN PRN Reason: NAUSEA AND/OR VOMITING Oxycodone HCl (Roxicodone -) 5 mg PO Q6H PRN PRN Reason: PAIN LEVEL 6-10 Last Admin: 02/26/20 00:56 Dose: 5 mg Documented by: Pantoprazole Sodium (Protonix -) 40 mg PO DAILY REJI Last Admin: 02/26/20 10:57 Dose: 40 mg Documented by: Tramadol HCl (Ultram -) 50 mg PO Q6H PRN PRN Reason: PAIN LEVEL 4 - 6 - Objective Vital Signs: Vital Signs Temperature 98.3 F 02/26/20 06:00 Pulse Rate 65 02/26/20 06:00 Respiratory Rate 18 02/26/20 06:00 Blood Pressure 146/75 02/26/20 06:00 O2 Sat by Pulse Oximetry (%) 98 02/26/20 06:00 Labs: CBC, BMP 02/26/20 07:09 02/26/20 07:09 INR, PTT INR 1.27 (0.82-1.09) H 02/25/20 07:05
--- NOTE | 2020-02-26 14:10 | PN ---
Progress Note (short form) - Note Progress Note: Anesthesia postop note 59 y/o M s/p GA for I&D knee POD#1, vss, aaox3, pain fairly well controlled. No anesthesia complications.
[2020-02-26] MEDS: ATORVASTATIN CA 20 MG TABLET (FP) PO SCH (21:24)
[2020-02-26] MEDS: INSULIN (LEVEMIR) 100 UNITS/ML UNITS SQ SCH (21:25)
[2020-02-27] MEDS: VANCOMYCIN 1 GRAM (PRE-DOCKED) 1,000 MG/250 ML BAG IVPB SCH ×2 (01:21→15:05)
[2020-02-27] MEDS ORDERED: PIPERACILLIN/TAZOBACTAM 3.375 GM VIAL IVPB ONE (06:25)
[2020-02-27] MEDS ORDERED: SODIUM CHLORIDE 50 ML IVPB ONE (06:26)
[2020-02-27] MEDS: INSULIN SLIDING SCALE (NOVOLOG) 1 VIAL SQ SCH ×5 (06:38→22:51)
[2020-02-27] MEDS: PIPERACILLIN/TAZOB 3.375 GM 3.375 GM in SODIUM CHLORIDE 50 ML IVPB SCH (06:39)
--- NOTE | 2020-02-27 07:30 | PN ---
Physical Exam: SUBJECTIVE: Patient seen and examined oob to chair. Encouraged oob, ambulation, cooperation with PT. Discussed diabetic diet compliance. Will get nutrition consult/patient teaching. OBJECTIVE: Vital Signs Period Temp Pulse Resp BP Sys/Wynne Pulse Ox Last 24 Hr 98.3 F-99.3 F 60-71 16-18 134-152/68-80 95-100 GENERAL: Awake, alert, and fully oriented, in no acute distress. HEART: Regular rate and rhythm, normal S1 and S2 ABDOMEN: Soft, nontender, not distended LUE: left second finger MCP swelling and erythema resolved RLE: surgical dressing c/d/i,surgical site was again seen this am by Dr. Hidalgo, dressing not disturbed NEUROLOGICAL: Cranial nerves II-XII intact. Normal speech. Laboratory Results - last 24 hr 02/26/20 02/26/20 02/26/20 07:04 07:09 07:09 WBC 9.0 RBC 4.42 Hgb 13.4 Hct 39.1 MCV 88.5 MCH 30.4 MCHC 34.3 RDW 11.4 L Plt Count 430 MPV 6.9 L Absolute Neuts (auto) 5.3 Neutrophils % 60.4 Lymphocytes % 24.0 Monocytes % 11.8 H Eosinophils % 2.9 Basophils % 0.9 ESR 89 H Sodium 138 Potassium 3.9 Chloride 102 Carbon Dioxide 27 Anion Gap 9 BUN 7.0 Creatinine 0.7 Est GFR (CKD-EPI)AfAm 121.41 Est GFR (CKD-EPI)NonAf 104.76 POC Glucometer Random Glucose 155 H Calcium 8.3 L C-Reactive Protein Vancomycin Pre-Dose 02/26/20 02/26/20 02/26/20 07:09 11:13 15:40 WBC RBC Hgb Hct MCV MCH MCHC RDW Plt Count MPV Absolute Neuts (auto) Neutrophils % Lymphocytes % Monocytes % Eosinophils % Basophils % ESR Sodium Potassium Chloride Carbon Dioxide Anion Gap BUN Creatinine Est GFR (CKD-EPI)AfAm Est GFR (CKD-EPI)NonAf POC Glucometer 346 Random Glucose Calcium C-Reactive Protein 6.0 H Vancomycin Pre-Dose 4.4 L 02/26/20 02/26/20 02/27/20 16:32 20:20 06:33 WBC RBC Hgb Hct MCV MCH MCHC RDW Plt Count MPV Absolute Neuts (auto) Neutrophils % Lymphocytes % Monocytes % Eosinophils % Basophils % ESR Sodium Potassium Chloride Carbon Dioxide Anion Gap BUN Creatinine Est GFR (CKD-EPI)AfAm Est GFR (CKD-EPI)NonAf POC Glucometer 219 222 141 Random Glucose Calcium C-Reactive Protein Vancomycin Pre-Dose Active Medications Generic Name Dose Route Start Last Admin Trade Name Freq PRN Reason Stop Dose Admin Acetaminophen 650 mg 02/23/20 14:52 02/26/20 23:38 Tylenol - PO 650 mg Q6H PRN Administration PAIN LEVEL 1-5 Atorvastatin Calcium 20 mg 02/21/20 22:00 02/26/20 21:24 Lipitor - PO 20 mg HS REJI Administration Colchicine 0.6 mg 02/21/20 19:00 02/26/20 10:57 Colcrys PO 0.6 mg DAILY REJI Administration Enalapril Maleate 2.5 mg 02/22/20 10:00 02/26/20 10:57 Vasotec - PO 2.5 mg DAILY REJI Administration Enoxaparin Sodium 40 mg 02/26/20 10:00 02/26/20 10:58 Lovenox - SQ 40 mg DAILY REJI Administration Piperacillin Sod/Tazobactam 50 mls @ 100 mls/hr 02/22/20 15:00 02/27/20 06:39 Sod 3.375 gm/ Sodium Chloride IVPB 100 mls/hr Q8H REJI Administration Protocol Vancomycin HCl 1,000 mg in 250 mls @ 166.667 mls/hr 02/24/20 14:00 02/27/20 01:21 Vancomycin (Pre-Docked) IVPB 166.667 mls/hr Q12H REJI Administration Protocol Insulin Aspart 1 vial 02/21/20 16:30 02/27/20 06:38 Novolog Vial Sliding Scale - SQ Not Given ACHS [facility] Protocol Insulin Detemir 20 units 02/26/20 14:18 02/26/20 21:25 Levemir Vial SQ 20 units HS REJI Administration Oxycodone HCl 5 mg 02/23/20 14:51 02/26/20 00:56 Roxicodone - PO 5 mg Q6H PRN Administration PAIN LEVEL 6-10 Pantoprazole Sodium 40 mg 02/21/20 18:30 02/26/20 10:57 Protonix - PO 40 mg DAILY REJI Administration Tramadol HCl 50 mg 02/24/20 10:59 Ultram - PO Q6H PRN PAIN LEVEL 4 - 6 ASSESSMENT/PLAN: 59 year-old male with a PMH significant for HTN, HLD, Type II NIDDM, and gout, admitted for right knee infrapatellar bursitis and abscess, now s/p I&D on 02/25/[address] Hidalgo. Right knee infrapatellar bursitis and abscess s/p I&D --POD #2 --discussed with Dr. Hidalgo, still draining; may need to return to OR on Tuesday for washout/wound vac; also discussed with BRAIN Blevins working with Dr. Westfall put on consult --wound cultures (+) staph, presumptive MSSA --continue Vanc (day #3) and Zosyn (day #6) --ID following --pain management with Tylenol Gout --h/o gouty arthritis --continue daily colchicine --stopped indomethacin --seen and evaluated by rheum Hypertension --BP stable --continue enalapril Hyperlipidemia --continue Lipitor Type II NIDDM --HgbA1C 11.4 --FS running high, increased Levemir to 20U qhs on 02/25 --Novolog sliding scale coverage COVID --02/20 swab negative --reswab today for possible return to OR on Tuesday; discussed with lab, will get expedited handling FEN Fluids: PO intake adequate Electrolytes: replete as indicated Nutrition: low sodium, diabetic DVT prophylaxis: subq lovenox Physical therapy Dispo: continues to require inpatient care. Full code. Visit type - Emergency Visit Emergency Visit: Yes ED Registration Date: 02/21/20 Care time: The patient presented to the Emergency Department on the above date and was hospitalized for further evaluation of their emergent condition. - New Patient This patient is new to me today: No - Critical Care Critical Care patient: No
--- NOTE | 2020-02-27 08:27 | PN ---
Progress Note (short form) - Note Progress Note: ORTHOPEDIC SURGERY PROGRESS NOTE Department of Orthopedic Surgery SUBJECTIVE No acute events overnight. No complaints currently. Denies chest pain, shortness of breath, or calf pain. No nausea or vomiting. Tolerating oral intake. S/P Right knee I&D. Pain improved, patient able to ambulate on his own this morning without discomfort. PHYSICAL EXAMINATION General: Alert, oriented, cooperative and no distress. Right Lower Extremity: Dressing intact; Mild drainage on 4x4 dressings, no active drainage today. Sutures intact, wound healing with erythema and mild swelling around the wound site. Muscle mass equal and symmetric to contralateral side. No atrophy noted. No masses or effusions noted. Tender to palpation over the wound; nontender throughout rest of extremity. No cords or calf tenderness; No ankle edema. Full passive and active ROM of the hip, ankle, and toes, free from pain. LROM of the knee secondary to swelling; Joints stable with no pathologic laxity. EHL/TA/GS motor intact; SILT distally; 2+ DP pulses; Cap refill brisk. Tone and reflexes normal. DVT Exam: No evidence of DVT seen on physical exam; No cords or calf tenderness; No significant calf/ankle edema. Intake & Output 02/25/20 02/26/20 02/27/20 23:59 23:59 23:59 Intake Total 2425 3380 900 Output Total 1200 Balance 1225 3380 900 Intake: IV 1525 1800 100 Lactated Ringers Solution 525 1,000 ml @ 125 mls/hr IV ASDIR REJI Rx#: [id number] NS+20 MEQ KCL - 20 meq In 1500 1,000 ml @ 125 mls/hr IV ASDIR REJI Rx#: [id number] saline lock 300 100 IVPB 400 350 300 Oral 500 1230 500 Output: Urine 1200 Void 1200 Other: Voiding Method Urinal Toilet Toilet # Unmeasured Voids Void 1 1 1 Bowel Movement No No Active Medications Generic Name Dose Route Start Last Admin Trade Name Freq PRN Reason Stop Dose Admin Acetaminophen 650 mg 02/23/20 14:52 02/26/20 23:38 Tylenol - PO 650 mg Q6H PRN Administration PAIN LEVEL 1-5 Atorvastatin Calcium 20 mg 02/21/20 22:00 02/26/20 21:24 Lipitor - PO 20 mg HS REJI Administration Colchicine 0.6 mg 02/21/20 19:00 02/26/20 10:57 Colcrys PO 0.6 mg DAILY REJI Administration Enalapril Maleate 2.5 mg 02/22/20 10:00 02/26/20 10:57 Vasotec - PO 2.5 mg DAILY REJI Administration Enoxaparin Sodium 40 mg 02/26/20 10:00 02/26/20 10:58 Lovenox - SQ 40 mg DAILY REJI Administration Piperacillin Sod/Tazobactam 50 mls @ 100 mls/hr 02/22/20 15:00 02/27/20 06:39 Sod 3.375 gm/ Sodium Chloride IVPB 100 mls/hr Q8H REJI Administration Protocol Vancomycin HCl 1,000 mg in 250 mls @ 166.667 mls/hr 02/24/20 14:00 02/27/20 01:21 Vancomycin (Pre-Docked) IVPB 166.667 mls/hr Q12H REJI Administration Protocol Insulin Aspart 1 vial 02/21/20 16:30 02/27/20 06:38 Novolog Vial Sliding Scale - SQ Not Given ACHS REJI Protocol Insulin Detemir 20 units 02/26/20 14:18 02/26/20 21:25 Levemir Vial SQ 20 units HS REJI Administration Pantoprazole Sodium 40 mg 02/21/20 18:30 02/26/20 10:57 Protonix - PO 40 mg DAILY REJI Administration Vital Signs (last) Temp Pulse Resp BP Pulse Ox 98.3 F 60 18 152/70 100 02/27/20 06:00 02/27/20 06:00 02/27/20 06:00 02/27/20 06:00 02/27/20 06:00 Laboratory (coagulation) PT with INR 14.1 SEC (10.2-13.0) H 02/25/20 07:05 Laboratory 02/26/20 07:09 02/26/20 07:09 ASSESSMENT AND PLAN Mr. Yates is a 59 year old male s/p Right infrapatellar bursitis / abscess I&D, POD 2 Gram positive cocci in clusters and chains seen on gram stain 1. Pain Control 3. DVT ppx 4. Continue IV antibiotics / F/U abscess cultures 5. Continue cold compresses 6. No signs of septic joint. 7. Continue medical management; Need better control of glucose levels. 8. Continue to trend ESR/CRP daily All questions were answered. Thank you for involving our team in the care of this patient. We will follow the patient with you. Please call us with questions.
[2020-02-27] MEDS: PANTOPRAZOLE 40 MG TABLET PO SCH (09:19)
[2020-02-27] MEDS: ENALAPRIL MALEATE 2.5 MG TABLET (FP) PO SCH (09:19)
[2020-02-27] MEDS: COLCHICINE 0.6 MG CAP PO SCH (09:19)
[2020-02-27] MEDS: ENOXAPARIN NA (PORCINE) 40 MG/0.4 ML DISP.SYRIN SQ SCH (09:30)
--- NOTE | 2020-02-27 12:05 | CONSULT ---
- Consultation REQUESTING PROVIDER: CONSULT REQUEST: We have been asked to surgically evaluate this patient for right knee wound s/p I&D PCP:Ebony Sanchez HISTORY OF PRESENT ILLNESS: HISTORY OF PRESENT ILLNESS: 59 year-old male with a PMHx of HTN, HLD, Type II NIDDM, and gout (last flare 2011). Patient presented to ED with progressive redness, pain and swelling of hi s right knee x 1 week. 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 He denies any other injury or activity associated with the onset. His last gout flare was in 2011 and he has been on no preventive medications. He was seen at an urgent care and was prescribed a 3-day course of colchicine and indomethacin which he finished 3 days ago. Since his admission he has been diagnosed with right infrapatellar bursitis with cellulitis and had an I&D with washout two days ago with Dr Hidalgo. Although the cellulitis is improving, the wound has continued to drain and the patient has significant pain with knee ROM. He Denies fever, chills, SOB, CP, N/V/D. The patient lives with family and uses no assistive devices at baseline, but is currently using a cane for ambulation due to his pain. Recent Travel: Traveled to [facility] for one week in May 2019 PAST MEDICAL HISTORY: Hypertension Hyperlipidemia Type II NIDDM Gout Sixth cranial nerve palsy (2017) PAST SURGICAL HISTORY: Abdominal and inguinal hernia repairs Social History: works in maintenance, lives with Smoking: never Alcohol: occasional Drugs: no Family history: mother 84 a&w; father @94 complications of DM; 1 brother a&w; no biological children Allergies No Known Allergies Allergy (Unverified 02/21/20 10:07) HOME MEDICATIONS: Home Medications Medication Instructions Recorded Atorvastatin Ca [Lipitor] 20 mg PO HS 02/21/20 Cholecalciferol (Vitamin D3) 5,000 unit PO DAILY 02/21/20 [Vitamin D3] Colchicine 0.6 mg PO ASDIR 02/21/20 Enalapril Maleate 2.5 mg PO DAILY 02/21/20 Glimepiride 4 mg PO BID 02/21/20 Indomethacin 50 mg PO Q8H 02/21/20 Metformin HCl [Glucophage] 500 mg PO BID 02/21/20 REVIEW OF SYSTEMS CONSTITUTIONAL: Absent: fever, chills, diaphoresis, generalized weakness, malaise, loss of appetite, weight change HEENT: Absent: rhinorrhea, nasal congestion, throat pain, throat swelling, visual changes CARDIOVASCULAR: Absent: chest pain, syncope, palpitations, irregular heart rate, lightheadedness, + Right LE peripheral edema RESPIRATORY: Absent: cough, shortness of breath, dyspnea with exertion, GASTROINTESTINAL: Absent: abdominal pain, abdominal distension, nausea, vomiting, diarrhea, constipation, GENITOURINARY: Absent: dysuria, frequency, urgency, hesitancy, MUSCULOSKELETAL: +pain, warmth, swelling, erythema to right knee Absent: myalgia, arthralgia, joint swelling, back pain, neck pain SKIN: Absent: rash, itching, pallor HEMATOLOGIC/IMMUNOLOGIC: Absent: easy bleeding, easy bruising, lymphadenopathy, frequent infections ENDOCRINE: Absent: unexplained weight gain, unexplained weight loss, heat intolerance, cold intolerance NEUROLOGIC: Absent: headache, focal weakness or paresthesias, dizziness, unsteady gait, seizure PSYCHIATRIC: Absent: anxiety, depression, suicidal or homicidal ideation, hallucinations. PHYSICAL EXAMINATION Vital Signs Period Temp Pulse Resp BP Sys/Wynne Pulse Ox Last 24 Hr 98.3 F-99.2 F 60-71 18-18 132-152/66-80 95-100 GENERAL: Awake, alert, and fully oriented, in no acute distress. HEAD: Normal with no signs of trauma. EYES: Pupils equal, round and reactive to light, conjunctiva clear. No lid lag. LUNGS: unlabored resp on RA, no accessory muscle use, no audible wheezing. ABDOMEN: Soft, nontender, not distended RLE: with diffuse edema throughout and +2 pitting edema at ankle/foot. Thigh soft and supple. Knee with mild TTP at medial joint line, no effusion but ex tremely limited ROM 2/2 pain blocking AROM 5-40 degrees AAROM 0-90 degrees although very painful. small [id number] wound just over the tibial tuberosity with a halo of erythema extending superior and medially-previous erythema margins noted- appears to be receding. Some bogginess (no organized collection or abscess) palpated over superior, medially to medial joint line with tracking measuring 5cm, SS discharge expressed with milking technique-no chicho puss, wound with no obvious bone or exposed structures although limited exposure. Undermining @1 cm superior and lateral from 9-12 o'clock position. LE compartments soft, supple and non-tender with +2 pitting edema over ankle, foot an toes warm and well perfused with +1DP and PT pulses Left LE compartments soft, supple and non-tender with +1 DP and PT pulses. NEUROLOGICAL: Cranial nerves II-XII intact. Normal speech. Abnormal Lab Results 02/26/20 02/27/20 02/27/20 15:40 07:20 07:20 ESR 89 H C-Reactive Protein 4.5 H Vancomycin Pre-Dose 4.4 L CBC, BMP 02/26/20 07:09 02/26/20 07:[address] 02/23/20: cellulitis of the tissue surrounding the right knee with moderate size fluid collection inferior to the patella. This can be seen in inflammatory or infectious patella bursitis however an abscess should be considered and the study is limited by lack of IV contrast. Problem List - Problems (1) Prepatellar bursitis Assessment/Plan: POD #2 I&D/washout with tunneling and undermining. Wound irrigated with NS and packed with iodoform packing on exam. Evaluation and plan discussed with Dr Hidalgo and Dr Westfall-spoke with Jeff-no need for MRI at this point in time-no concern for osteo. -IV ABX per ID -Daily irrigation and packing- surgery team will evaluate in AM-please pre medicate -Aggressive PT to work on ROM-no sutures therefore no limitation on flexion -Plan for formal washout and vac application on Tuesday. -Rhematology following-recs appreciated for gout -OOB with assist-fall risk Evaluation and plan discussed with Dr Westfall and Dr Hidalgo Code(s): M70.40 - PREPATELLAR BURSITIS, UNSPECIFIED KNEE Qualifiers: Laterality: right Qualified Code(s): M70.41 - Prepatellar bursitis, right knee
[2020-02-27] MEDS ORDERED: oxyCODONE HCL 5 MG TABLET ONE (12:21)
[2020-02-27] MEDS: oxyCODONE HCL 5 MG TABLET PO PRN ×3 (12:30→20:47)
--- NOTE | 2020-02-27 13:28 | PN ---
Progress Note, Physician - Current Medication List Current Medications: Active Medications Acetaminophen (Tylenol -) 650 mg PO Q6H PRN PRN Reason: PAIN LEVEL 1-5 Last Admin: 02/26/20 23:38 Dose: 650 mg Documented by: Atorvastatin Calcium (Lipitor -) 20 mg PO HS [facility] Last Admin: 02/26/20 21:24 Dose: 20 mg Documented by: Colchicine (Colcrys) 0.6 mg PO DAILY [facility] Last Admin: 02/27/20 09:19 Dose: 0.6 mg Documented by: Enalapril Maleate (Vasotec -) 2.5 mg PO DAILY [facility] Last Admin: 02/27/20 09:19 Dose: 2.5 mg Documented by: Enoxaparin Sodium (Lovenox -) 40 mg SQ DAILY [facility] Last Admin: 02/27/20 09:30 Dose: 40 mg Documented by: Vancomycin HCl (Vancomycin (Pre-Docked)) 1,000 mg in 250 mls @ 166.667 mls/hr IVPB Q12H [facility]; Protocol Last Admin: 02/27/20 01:21 Dose: 166.667 mls/hr Documented by: Insulin Aspart (Novolog Vial Sliding Scale -) 1 vial SQ [facility]; Protocol Last Admin: 02/27/20 11:31 Dose: 4 units Documented by: Insulin Detemir (Levemir Vial) 20 units SQ [facility] Last Admin: 02/26/20 21:25 Dose: 20 units Documented by: Oxycodone HCl (Roxicodone -) 5 mg PO Q4H PRN PRN Reason: PAIN LEVEL 1-5 Last Admin: 02/27/20 12:30 Dose: 5 mg Documented by: Oxycodone HCl (Roxicodone -) 10 mg PO Q4H PRN PRN Reason: PAIN LEVEL 6-10 Pantoprazole Sodium (Protonix -) 40 mg PO DAILY [facility] Last Admin: 02/27/20 09:19 Dose: 40 mg Documented by: - Objective Vital Signs: Vital Signs Temperature 98.3 F 02/27/20 06:00 Pulse Rate 60 02/27/20 06:00 Respiratory Rate 18 02/27/20 06:00 Blood Pressure 152/70 02/27/20 06:00 O2 Sat by Pulse Oximetry (%) 100 02/27/20 06:00 Labs: CBC, BMP 02/26/20 07:09 02/26/20 07:09 INR, PTT INR 1.27 (0.82-1.09) H 02/25/20 07:05
[2020-02-27] MEDS: ACETAMINOPHEN 325 MG TABLET (FP) PO PRN (20:49)
[2020-02-27] MEDS: INSULIN (LEVEMIR) 100 UNITS/ML UNITS SQ SCH (21:32)
[2020-02-27] MEDS: ATORVASTATIN CA 20 MG TABLET (FP) PO SCH (21:32)
[2020-02-28] MEDS: VANCOMYCIN 1 GRAM (PRE-DOCKED) 1,000 MG/250 ML BAG IVPB SCH (01:05)
[2020-02-28] MEDS: INSULIN SLIDING SCALE (NOVOLOG) 1 VIAL SQ SCH ×4 (06:46→21:11)
--- NOTE | 2020-02-28 07:17 | PN ---
Progress Note (short form) - Note Progress Note: SURGERY POD #2 s/p RLE I&D with washout No acute events per RN notes. Patient is alert. Supine in bed with RLE elevated on pillow. Denies n/v/f/c. Denies numbness/tingling to RLE/foot Afebrile. AVSS. WBC Trend 02/23/02/24/02/26/20 06:00 07:05 07:09 WBC 9.3 8.1 9.0 Microbiology G+ Cocci in Clusters PE Gen: a&o. nad Pulm: unlabored respirations on room air Cor: rrr RLE: infrapetallar open wound ~ 10mm x 10mm with tunneling superiorly about 8 cm. Wound erythema demarcated by pen line and appears that it is receding. Tissue less indurated. No purulent drainage. Not malodorous. Problem List - Problems (1) Abscess of right lower extremity Assessment/Plan: POD #2 s/p I&D -Packing removed on rounds. Wound irrigated then repacked with Iodophorm. Dry sterile dressing. Light SONIYA compression -RLE elevation while in bed or seated in chair -Aggressive PT to work on ROM (no limitation on flexion) -Plan for formal washout and VAC application 02/29/20 -Fall Risk -DVT PPx -Vanco 1 gm IVPB Q12H - Trough ordered -Tight glycemic control; ISS -ID f/u Code(s): L02.415 - CUTANEOUS ABSCESS OF RIGHT LOWER LIMB (2) DVT prophylaxis Code(s): [id number] - (3) Diabetes mellitus Code(s): E11.9 - TYPE 2 DIABETES MELLITUS WITHOUT COMPLICATIONS (4) HLD (hyperlipidemia) Code(s): E78.5 - HYPERLIPIDEMIA, UNSPECIFIED (5) HTN (hypertension) Code(s): I10 - ESSENTIAL (PRIMARY) HYPERTENSION
[2020-02-28 08:09] LABS: EOS % 2.8 % (0-4.5); HEMATOCRIT 40.8 % (35.4-49); HEMOGLOBIN 13.4 GM/dl (11.7-16.9); LYMPH % 37.1 % (8-40); MCH 29.9 pg (25.7-33.7); MCHC 32.7 g/dl (32.0-35.9); MEAN CELL VOLUME 91.3 fl (80-96); MEAN PLT VOLUME 6.8 fl (7.5-11.1); MONO % 10.1 % (3.8-10.2); PLATELET COUNT 481 K/MM3 (134-434); RBC 4.47 M/mm3 (4.00-5.60); RDW 11.5 % (11.9-15.9)
[2020-02-28 08:17] LABS: ALBUMIN 2.7 g/dl (3.4-5.0); BILIRUBIN,TOTAL 0.6 mg/dl (0.2-1); CALCIUM 8.9 mg/dl (8.5-10); CREATININE 0.5 mg/dl (0.55-1.3); POTASSIUM 3.4 mmol/L (3.5-5.1); TOT PROT 7.1 g/dl (6.4-8.2)
[2020-02-28 08:31] LABS: ACTIVATED PTT 29.5 SECONDS (25.2-36.5)
[2020-02-28 08:35] LABS: INR 1.27 (0.82-1.09); PROTHROMBIN TIME (PATIENT) 14.1 SEC (10.2-13.0)
[2020-02-28] MEDS: PANTOPRAZOLE 40 MG TABLET PO SCH (09:00)
[2020-02-28] MEDS: ENALAPRIL MALEATE 2.5 MG TABLET (FP) PO SCH (09:00)
[2020-02-28] MEDS: COLCHICINE 0.6 MG CAP PO SCH (09:00)
[2020-02-28] MEDS: ENOXAPARIN NA (PORCINE) 40 MG/0.4 ML DISP.SYRIN SQ SCH (09:00)
--- NOTE | 2020-02-28 09:57 | PN ---
Progress Note (short form) - Note Progress Note: ORTHOPEDIC SURGERY PROGRESS NOTE Department of Orthopedic Surgery SUBJECTIVE No acute events overnight. No complaints currently. Denies chest pain, shortness of breath, or calf pain. No nausea or vomiting. Tolerating oral intake. S/P Right knee I&D. Pain improved, patient able to ambulate on his own this morning without discomfort. Wound was irrigated and packed with iodoform packing yesterday by wound care surgical team. PHYSICAL EXAMINATION General: Alert, oriented, cooperative and no distress. Right Lower Extremity: Dressing intact; Iodoform packing intact, sutures removed yesterday, wound healing with significantly improved erythema and significantly improved swelling around the wound site. Muscle mass equal and symmetric to contralateral side. No atrophy noted. No masses or effusions noted. Tender to palpation over the wound; nontender throughout rest of extremity. No cords or calf tenderness; No ankle edema. Full passive and active ROM of the hip, ankle, and toes, free from pain. LROM of the knee secondary to swelling - but improved; Joints stable with no pathologic laxity. EHL/TA/GS motor intact; SILT distally; 2+ DP pulses; Cap refill brisk. Tone and reflexes normal. DVT Exam: No evidence of DVT seen on physical exam; No cords or calf tenderness; No significant calf/ankle edema. Intake & Output 02/26/20 02/27/20 02/28/20 23:59 23:59 23:59 Intake Total 3380 2175 770 Balance 3380 2175 770 Intake: IV 1800 100 120 NS+20 MEQ KCL - 20 meq In 1500 1,000 ml @ 125 mls/hr IV ASDIR REJI Rx#: [id number] saline lock 300 100 120 IVPB 350 300 250 Oral 1230 1775 400 Other: Voiding Method Toilet Toilet Toilet # Unmeasured Voids Void 1 1 3 Bowel Movement No No Active Medications Generic Name Dose Route Start Last Admin Trade Name Freq PRN Reason Stop Dose Admin Acetaminophen 650 mg 02/23/20 14:52 02/27/20 20:49 Tylenol - PO 650 mg Q6H PRN Administration PAIN LEVEL 1-5 Atorvastatin Calcium 20 mg 02/21/20 22:00 02/27/20 21:32 Lipitor - PO 20 mg HS REJI Administration Colchicine 0.6 mg 02/21/20 19:00 02/28/20 09:00 Colcrys PO 0.6 mg DAILY REJI Administration Enalapril Maleate 2.5 mg 02/22/20 10:00 02/28/20 09:00 Vasotec - PO 2.5 mg DAILY REJI Administration Enoxaparin Sodium 40 mg 02/26/20 10:00 02/28/20 09:00 Lovenox - SQ 40 mg DAILY REJI Administration Vancomycin HCl 1,000 mg in 250 mls @ 166.667 mls/hr 02/28/20 14:00 Vancomycin (Pre-Docked) IVPB Q12H [facility] Protocol Insulin Aspart 1 vial 02/21/20 16:30 02/28/20 06:46 Novolog Vial Sliding Scale - SQ Not Given ACHS [facility] Protocol Insulin Detemir 20 units 02/26/20 14:18 02/27/20 21:32 Levemir Vial SQ 20 units HS REJI Administration Oxycodone HCl 5 mg 02/27/20 12:57 02/27/20 20:47 Roxicodone - PO 5 mg Q4H PRN Administration PAIN LEVEL 1-5 Oxycodone HCl 10 mg 02/27/20 12:57 Roxicodone - PO Q4H PRN PAIN LEVEL 6-10 Pantoprazole Sodium 40 mg 02/21/20 18:30 02/28/20 09:00 Protonix - PO 40 mg DAILY REJI Administration Vital Signs (last) Temp Pulse Resp BP Pulse Ox 98.9 F 66 18 149/80 99 02/28/20 09:49 02/28/20 09:49 02/28/20 09:49 02/28/20 09:49 02/28/20 09:49 Laboratory (coagulation) PT with INR 14.1 SEC (10.2-13.0) H 02/28/20 07:09 Laboratory 02/28/20 07:09 02/28/20 07:09 ASSESSMENT AND PLAN Mr. Yates is a 59 year old male s/p Right infrapatellar bursitis / abscess I&D, POD 3 - improved symptoms Gram positive cocci in clusters and chains seen on gram stain, MSSA 1. Pain Control 3. DVT ppx 4. Continue IV antibiotics / ID follow up 5. Continue cold compresses to right knee 6. No signs of septic joint. 7. Continue medical management; Need better control of glucose levels. 8. Continue to trend ESR/CRP daily 9. NPO past midnight except for medications for possible repeat I&D with VAC placement tomorrow AM. Please hold anticoagulation medications past midnight. 10. Will re-evaluate the wound in the early AM, and if continued improvement will cancel the scheduled repeat I&D, and continue further conservative management and close follow up with wound care clinic at [facility] as an outpatient, along with continued outpatient IV antibiotics. Discussed with wound care and infectious disease teams. All questions were answered. Thank you for involving our team in the care of this patient. We will follow the patient with you. Please call us with questions.
[2020-02-28] MEDS ORDERED: POTASSIUM CHLORIDE TABS 20 MEQ TABLET.ER (FP) PO ONE (10:45)
--- NOTE | 2020-02-28 11:44 | PN ---
Physical Exam: SUBJECTIVE: Patient seen and examined OBJECTIVE: Vital Signs Period Temp Pulse Resp BP Sys/Wynne Pulse Ox Last 24 Hr 97.9 F-99.3 F 52-66 18-18 130-153/66-80 97-100 GENERAL: Awake, alert, and fully oriented, in no acute distress. HEART: Regular rate and rhythm, normal S1 and S2 ABDOMEN: Soft, nontender, not distended LUE: left second finger MCP swelling and erythema resolved RLE: surgical dressing c/d/i,surgical site was examined this morning by BRAIN Wynne, dressing not disturbed NEUROLOGICAL: Cranial nerves II-XII intact. Normal speech. Laboratory Results - last 24 hr 02/27/20 02/27/20 02/28/20 18:07 21:29 06:26 WBC RBC Hgb Hct MCV MCH MCHC RDW Plt Count MPV Absolute Neuts (auto) Neutrophils % Lymphocytes % Monocytes % Eosinophils % Basophils % ESR PT with INR INR PTT (Actin FS) Sodium Potassium Chloride Carbon Dioxide Anion Gap BUN Creatinine Est GFR (CKD-EPI)AfAm Est GFR (CKD-EPI)NonAf POC Glucometer 178 187 134 Random Glucose Calcium Magnesium Total Bilirubin AST ALT Alkaline Phosphatase C-Reactive Protein Total Protein Albumin Blood Type Antibody Screen 02/28/20 02/28/20 02/28/20 07:09 07:09 07:09 WBC 8.0 RBC 4.47 Hgb 13.4 Hct 40.8 MCV 91.3 MCH 29.9 MCHC 32.7 RDW 11.5 L Plt Count 481 H MPV 6.8 L Absolute Neuts (auto) 3.9 Neutrophils % 49.0 Lymphocytes % 37.1 D Monocytes % 10.1 Eosinophils % 2.8 Basophils % 1.0 ESR 95 H PT with INR INR PTT (Actin FS) Sodium 142 Potassium 3.4 L Chloride 103 Carbon Dioxide 26 Anion Gap 13 BUN 9.0 Creatinine 0.5 L Est GFR (CKD-EPI)AfAm 139.42 Est GFR (CKD-EPI)NonAf 120.29 POC Glucometer Random Glucose 134 H Calcium 8.9 Magnesium 2.0 Total Bilirubin 0.6 AST 24 ALT 34 Alkaline Phosphatase 57 C-Reactive Protein 2.2 H Total Protein 7.1 Albumin 2.7 L Blood Type Antibody Screen 02/28/20 02/28/20 02/28/20 07:09 07:09 11:23 WBC RBC Hgb Hct MCV MCH MCHC RDW Plt Count MPV Absolute Neuts (auto) Neutrophils % Lymphocytes % Monocytes % Eosinophils % Basophils % ESR PT with INR 14.1 H INR 1.27 H PTT (Actin FS) 29.5 Sodium Potassium Chloride Carbon Dioxide Anion Gap BUN Creatinine Est GFR (CKD-EPI)AfAm Est GFR (CKD-EPI)NonAf POC Glucometer 150 Random Glucose Calcium Magnesium Total Bilirubin AST ALT Alkaline Phosphatase C-Reactive Protein Total Protein Albumin Blood Type O POSITIVE Antibody Screen Negative Active Medications Generic Name Dose Route Start Last Admin Trade Name Freq PRN Reason Stop Dose Admin Acetaminophen 650 mg 02/23/20 14:52 02/27/20 20:49 Tylenol - PO 650 mg Q6H PRN Administration PAIN LEVEL 1-5 Atorvastatin Calcium 20 mg 02/21/20 22:00 02/27/20 21:32 Lipitor - PO 20 mg HS REJI Administration Colchicine 0.6 mg 02/21/20 19:00 02/28/20 09:00 Colcrys PO 0.6 mg DAILY REJI Administration Enalapril Maleate 2.5 mg 02/22/20 10:00 02/28/20 09:00 Vasotec - PO 2.5 mg DAILY REJI Administration Vancomycin HCl 1,000 mg in 250 mls @ 166.667 mls/hr 02/28/20 14:00 Vancomycin (Pre-Docked) IVPB Q12H [facility] Protocol Insulin Aspart 1 vial 02/21/20 16:30 02/28/20 11:25 Novolog Vial Sliding Scale - SQ Not Given ACHS [facility] Protocol Insulin Detemir 20 units 02/26/20 14:18 02/27/20 21:32 Levemir Vial SQ 20 units HS REJI Administration Oxycodone HCl 5 mg 02/27/20 12:57 02/27/20 20:47 Roxicodone - PO 5 mg Q4H PRN Administration PAIN LEVEL 1-5 Oxycodone HCl 10 mg 02/27/20 12:57 Roxicodone - PO Q4H PRN PAIN LEVEL 6-10 Pantoprazole Sodium 40 mg 02/21/20 18:30 02/28/20 09:00 Protonix - PO 40 mg DAILY REJI Administration Microbiology 02/25/20 14:00 Knee - Right Gram Stain - Final 02/25/20 14:00 Knee - Right Wound Culture - Preliminary Staphylococcus Aureus 02/25/20 14:00 Knee - Right Gram Stain - Final 02/25/20 14:00 Knee - Right Wound Culture - Preliminary Staphylococcus Latex Coag Pos 02/25/20 14:00 Knee - Right Gram Stain - Final 02/25/20 14:00 Knee - Right Wound Culture - Preliminary Staphylococcus Latex Coag Pos 02/21/20 09:51 Blood - Peripheral Venous Blood Culture - Final NO GROWTH AFTER 5 DAYS INCUBATION 02/21/20 09:51 Blood - Peripheral Venous Blood Culture - Final NO GROWTH AFTER 5 DAYS INCUBATION ASSESSMENT/PLAN: 59 year-old male with a PMH significant for HTN, HLD, Type II NIDDM, and gout, admitted for right knee infrapatellar bursitis and abscess, now s/p I&D on 02/25/[address] Hidalgo. Right knee infrapatellar bursitis and abscess s/p I&D Staph aureus cellulitis --POD #3 --yesterday sutures removed, wound packed with iodoform; wound examined this morning by surgery, ~10mm x 10mm with 8mm tunneling superiorly --plan to to return to OR tomorrow for washout and wound vac placement --wound cultures (+) staph aureus --treated with Vanc x 3 days, Zosyn x 6 days; switched today to cefazolin --pain management with Tylenol, oxycodone --continue PT --per ID keep on cefazolin until discharge; will then need PICC line and ceftriaxone 2g q24h x 14 days Gout --h/o gouty arthritis --continue daily colchicine --stopped indomethacin --seen and evaluated by rheum Hypertension --BP stable --continue enalapril Hyperlipidemia --continue Lipitor Type II NIDDM --HgbA1C 11.4 --FS improved on increased Levemir --Novolog sliding scale coverage Hypkalemia --replete COVID --02/20 swab negative --02/26 COVID reswab pending FEN Fluids: PO intake adequate Electrolytes: replete as indicated Nutrition: low sodium, diabetic; NPO after midnight DVT prophylaxis: subq lovenox, last dose 02/27 in am; hold for OR tomorrow Physical therapy Dispo: continues to require inpatient care. Full code. Will need PICC line on discharge. Visit type - Emergency Visit Emergency Visit: Yes ED Registration Date: 02/21/20 Care time: The patient presented to the Emergency Department on the above date and was hospitalized for further evaluation of their emergent condition. - New Patient This patient is new to me today: No - Critical Care Critical Care patient: No
[2020-02-28 13:16] VITALS: BMI 33.0
[2020-02-28] MEDS ORDERED: VANCOMYCIN 1 GRAM (PRE-DOCKED) 1,000 MG/250 ML BAG IVPB SCH (14:00)
--- NOTE | 2020-02-28 15:08 | PN ---
Progress Note, Physician - Current Medication List Current Medications: Active Medications Acetaminophen (Tylenol -) 650 mg PO Q6H PRN PRN Reason: PAIN LEVEL 1-5 Last Admin: 02/27/20 20:49 Dose: 650 mg Documented by: Amino Acids (Prosource No Carb Liquid Pkt) 30 ml PO BID@0800,1730 [facility] Ascorbic Acid (Vitamin C -) 500 mg PO DAILY [facility] Atorvastatin Calcium (Lipitor -) 20 mg PO HS [facility] Last Admin: 02/27/20 21:32 Dose: 20 mg Documented by: Colchicine (Colcrys) 0.6 mg PO DAILY [facility] Last Admin: 02/28/20 09:00 Dose: 0.6 mg Documented by: Enalapril Maleate (Vasotec -) 2.5 mg PO DAILY [facility] Last Admin: 02/28/20 09:00 Dose: 2.5 mg Documented by: Insulin Aspart (Novolog Vial Sliding Scale -) 1 vial SQ [facility]; Protocol Last Admin: 02/28/20 11:25 Dose: Not Given Documented by: Insulin Detemir (Levemir Vial) 20 units SQ [facility] Last Admin: 02/27/20 21:32 Dose: 20 units Documented by: Multivitamins/Minerals/Vitamin C (Tab-A-Vit -) 1 tab PO DAILY [facility] Oxycodone HCl (Roxicodone -) 5 mg PO Q4H PRN PRN Reason: PAIN LEVEL 1-5 Last Admin: 02/27/20 20:47 Dose: 5 mg Documented by: Oxycodone HCl (Roxicodone -) 10 mg PO Q4H PRN PRN Reason: PAIN LEVEL 6-10 Pantoprazole Sodium (Protonix -) 40 mg PO DAILY [facility] Last Admin: 02/28/20 09:00 Dose: 40 mg Documented by: - Objective Vital Signs: Vital Signs Temperature 98.2 F 02/28/20 14:00 Pulse Rate 62 02/28/20 14:00 Respiratory Rate 18 02/28/20 14:00 Blood Pressure 158/78 02/28/20 14:00 O2 Sat by Pulse Oximetry (%) 99 02/28/20 14:00 Labs: CBC, BMP 02/28/20 07:09 02/28/20 07:09 INR, PTT INR 1.27 (0.82-1.09) H 02/28/20 07:09
[2020-02-28] MEDS: MULTIVITAMINS (DAILY MVI) TABLET (FP) PO SCH (17:09)
[2020-02-28] MEDS: CEFAZOLIN 1 GM/D5W 1 GM/50 ML BAG IVPB SCH (17:09)
[2020-02-28] MEDS: ASCORBIC ACID 500 MG TABLET (FP) PO SCH (17:09)
[2020-02-28] MEDS: AMINO ACIDS/PROTEIN HYDROLYS 30 ML LIQUID.PKT PO SCH (17:09)
[2020-02-28] MEDS: ATORVASTATIN CA 20 MG TABLET (FP) PO SCH (21:10)
[2020-02-28] MEDS: INSULIN (LEVEMIR) 100 UNITS/ML UNITS SQ SCH (21:10)
[2020-02-28] MEDS: oxyCODONE HCL 5 MG TABLET PO PRN (21:55)
[2020-02-29] MEDS: CEFAZOLIN 1 GM/D5W 1 GM/50 ML BAG IVPB SCH ×3 (01:17→17:43)
[2020-02-29] MEDS: INSULIN SLIDING SCALE (NOVOLOG) 1 VIAL SQ SCH ×4 (06:23→21:11)
--- NOTE | 2020-02-29 08:11 | PN ---
Physical Exam: SUBJECTIVE: Patient seen and examined. Has been able to walk, bending knee still limited due to pain. OBJECTIVE: Vital Signs Period Temp Pulse Resp BP Sys/Wynne Pulse Ox Last 24 Hr 98.1 F-98.9 F 58-66 16-18 120-158/63-80 96-99 GENERAL: Awake, alert, and fully oriented, in no acute distress. HEART: Regular rate and rhythm, normal S1 and S2 ABDOMEN: Soft, nontender, not distended RLE: surgical dressing removed, wound visualized, packing in place, knee swollen, tender NEUROLOGICAL: Cranial nerves II-XII intact. Normal speech. Laboratory Results - last 24 hr 02/27/20 02/28/20 02/28/20 11:00 07:09 07:09 WBC RBC Hgb Hct MCV MCH MCHC RDW Plt Count MPV Absolute Neuts (auto) Neutrophils % Lymphocytes % Monocytes % Eosinophils % Basophils % ESR 95 H PT with INR INR PTT (Actin FS) Sodium 142 Potassium 3.4 L Chloride 103 Carbon Dioxide 26 Anion Gap 13 BUN 9.0 Creatinine 0.5 L Est GFR (CKD-EPI)AfAm 139.42 Est GFR (CKD-EPI)NonAf 120.29 POC Glucometer Random Glucose 134 H Calcium 8.9 Magnesium 2.0 Total Bilirubin 0.6 AST 24 ALT 34 Alkaline Phosphatase 57 C-Reactive Protein 2.2 H Total Protein 7.1 Albumin 2.7 L Vancomycin Pre-Dose COVID-19 ([facility]) Not detected Blood Type Antibody Screen 02/28/20 02/28/20 02/28/20 07:09 07:09 07:09 WBC 8.0 RBC 4.47 Hgb 13.4 Hct 40.8 MCV 91.3 MCH 29.9 MCHC 32.7 RDW 11.5 L Plt Count 481 H MPV 6.8 L Absolute Neuts (auto) 3.9 Neutrophils % 49.0 Lymphocytes % 37.1 D Monocytes % 10.1 Eosinophils % 2.8 Basophils % 1.0 ESR PT with INR 14.1 H INR 1.27 H PTT (Actin FS) 29.5 Sodium Potassium Chloride Carbon Dioxide Anion Gap BUN Creatinine Est GFR (CKD-EPI)AfAm Est GFR (CKD-EPI)NonAf POC Glucometer Random Glucose Calcium Magnesium Total Bilirubin AST ALT Alkaline Phosphatase C-Reactive Protein Total Protein Albumin Vancomycin Pre-Dose COVID-19 ([facility]) Blood Type O POSITIVE Antibody Screen Negative 02/28/20 02/28/20 02/28/20 11:23 13:42 16:53 WBC RBC Hgb Hct MCV MCH MCHC RDW Plt Count MPV Absolute Neuts (auto) Neutrophils % Lymphocytes % Monocytes % Eosinophils % Basophils % ESR PT with INR INR PTT (Actin FS) Sodium Potassium Chloride Carbon Dioxide Anion Gap BUN Creatinine Est GFR (CKD-EPI)AfAm Est GFR (CKD-EPI)NonAf POC Glucometer 150 146 Random Glucose Calcium Magnesium Total Bilirubin AST ALT Alkaline Phosphatase C-Reactive Protein Total Protein Albumin Vancomycin Pre-Dose 6.7 COVID-19 ([facility]) Blood Type Antibody Screen 02/28/20 02/29/20 20:36 06:18 WBC RBC Hgb Hct MCV MCH MCHC RDW Plt Count MPV Absolute Neuts (auto) Neutrophils % Lymphocytes % Monocytes % Eosinophils % Basophils % ESR PT with INR INR PTT (Actin FS) Sodium Potassium Chloride Carbon Dioxide Anion Gap BUN Creatinine Est GFR (CKD-EPI)AfAm Est GFR (CKD-EPI)NonAf POC Glucometer 169 98 Random Glucose Calcium Magnesium Total Bilirubin AST ALT Alkaline Phosphatase C-Reactive Protein Total Protein Albumin Vancomycin Pre-Dose COVID-19 ([facility]) Blood Type Antibody Screen Active Medications Generic Name Dose Route Start Last Admin Trade Name Freq PRN Reason Stop Dose Admin Acetaminophen 650 mg 02/23/20 14:52 02/27/20 20:49 Tylenol - PO 650 mg Q6H PRN Administration PAIN LEVEL 1-5 Amino Acids 30 ml 02/28/20 17:30 02/28/20 17:09 Prosource No Carb Liquid Pkt PO 30 ml BID@0800,1730 REJI Administration Ascorbic Acid 500 mg 02/28/20 14:15 02/28/20 17:09 Vitamin C - PO 500 mg DAILY REJI Administration Atorvastatin Calcium 20 mg 02/21/20 22:00 02/28/20 21:10 Lipitor - PO 20 mg HS REJI Administration Colchicine 0.6 mg 02/21/20 19:00 02/28/20 09:00 Colcrys PO 0.6 mg DAILY REJI Administration Enalapril Maleate 2.5 mg 02/22/20 10:00 02/28/20 09:00 Vasotec - PO 2.5 mg DAILY REJI Administration Cefazolin Sodium 1 gm in 50 mls @ 100 mls/hr 02/28/20 18:00 02/29/20 01:17 Ancef 1 Gm Premixed Ivpb - IVPB 100 mls/hr Q8H-IV REJI Administration Insulin Aspart 1 vial 02/21/20 16:30 02/29/20 06:23 Novolog Vial Sliding Scale - SQ Not Given ACHS [facility] Protocol Insulin Detemir 20 units 02/26/20 14:18 02/28/20 21:10 Levemir Vial SQ 20 units HS REJI Administration Multivitamins/Minerals/Vitamin C 1 tab 02/28/20 14:30 02/28/20 17:09 Tab-A-Vit - PO 1 tab DAILY REJI Administration Oxycodone HCl 5 mg 02/27/20 12:57 02/27/20 20:47 Roxicodone - PO 5 mg Q4H PRN Administration PAIN LEVEL 1-5 Oxycodone HCl 10 mg 02/27/20 12:57 02/28/20 21:55 Roxicodone - PO 10 mg Q4H PRN Administration PAIN LEVEL 6-10 Pantoprazole Sodium 40 mg 02/21/20 18:30 02/28/20 09:00 Protonix - PO 40 mg DAILY REJI Administration Microbiology 02/25/20 14:00 Knee - Right Gram Stain - Final 02/25/20 14:00 Knee - Right Wound Culture - Final Staphylococcus Latex Coag Pos 02/25/20 14:00 Knee - Right Gram Stain - Final 02/25/20 14:00 Knee - Right Wound Culture - Final Staphylococcus Latex Coag Pos 02/25/20 14:00 Knee - Right Gram Stain - Final 02/25/20 14:00 Knee - Right Wound Culture - Final Staphylococcus Aureus 02/21/20 09:51 Blood - Peripheral Venous Blood Culture - Final NO GROWTH AFTER 5 DAYS INCUBATION 02/21/20 09:51 Blood - Peripheral Venous Blood Culture - Final NO GROWTH AFTER 5 DAYS INCUBATION ASSESSMENT/PLAN 59 year-old male with a PMH significant for HTN, HLD, Type II NIDDM, and gout, admitted for right knee infrapatellar bursitis and abscess, now s/p I&D on 02/25/[address] Hidalgo. Right knee infrapatellar bursitis and abscess s/p I&D Staph aureus cellulitis --POD #4 --sutures were removed on POD#2 and wound was packed; significant improvement since then and anticipated return to OR today canceled --surgery repacked wound today and placed midline --treated with Vanc x 3 days, Zosyn x 6 days; continue cefazolin (day #2) until discharge, then switch to ceftriaxone 2g q24h x 14 days Gout --h/o gouty arthritis --continue daily colchicine --stopped indomethacin --seen and evaluated by rheum Hypertension --BP stable --continue enalapril Hyperlipidemia --continue Lipitor Type II NIDDM --HgbA1C 11.4 --FS improved on increased Levemir --Novolog sliding scale coverage Hypkalemia --replete COVID --02/20 swab negative --02/26 COVID reswab pending FEN Fluids: PO intake adequate Electrolytes: replete as indicated Nutrition: low sodium, diabetic; NPO after midnight DVT prophylaxis: resume subq lovenox Physical therapy Dispo: continues to require inpatient care. Midline placed. Case management making arrangements for VNS wound care. Patient will get IV infusuions daily here at [facility]. Full code. Visit type - Emergency Visit Emergency Visit: Yes ED Registration Date: 02/21/20 Care time: The patient presented to the Emergency Department on the above date and was hospitalized for further evaluation of their emergent condition. - New Patient This patient is new to me today: No - Critical Care Critical Care patient: No
--- NOTE | 2020-02-29 08:49 | PN ---
Progress Note (short form) - Note Progress Note: ORTHOPEDIC SURGERY PROGRESS NOTE Department of Orthopedic Surgery SUBJECTIVE No acute events overnight. No complaints currently. Denies chest pain, shortness of breath, or calf pain. No nausea or vomiting. Tolerating oral intake. S/P Right knee I&D. Pain improved, patient able to ambulate on his own this morning without discomfort. Wound was irrigated and packed with iodoform packing being managed by wound care surgical team. PHYSICAL EXAMINATION General: Alert, oriented, cooperative and no distress. Right Lower Extremity: Dressing intact; Iodoform packing intact, sutures removed; wound healing with significantly improved erythema and significantly improved swelling around the wound site without discharge. Muscle mass equal and symmetric to contralateral side. No atrophy noted. No masses or effusions noted. Tender to palpation over the wound; nontender throughout rest of extremity. No cords or calf tenderness; No ankle edema. Full passive and active ROM of the hip, ankle, and toes, free from pain. LROM of the knee secondary to swelling - but improved; Joints stable with no pathologic laxity. EHL/TA/GS motor intact; SILT distally; 2+ DP pulses; Cap refill brisk. Tone and reflexes normal. DVT Exam: No evidence of DVT seen on physical exam; No cords or calf tenderness; No significant calf/ankle edema. Intake & Output 02/27/20 02/28/20 02/29/20 23:59 23:59 23:59 Intake Total 2175 1820 470 Balance 2175 1820 470 Intake: IV 100 120 120 saline lock 100 120 120 IVPB 300 250 100 Oral 1775 1450 250 Other: Voiding Method Toilet Toilet Toilet # Unmeasured Voids Void 1 1 1 Bowel Movement No No No Weight 175 lb Height 5 ft 1 in Body Mass Index (BMI) 33.0 Active Medications Generic Name Dose Route Start Last Admin Trade Name Freq PRN Reason Stop Dose Admin Acetaminophen 650 mg 02/23/20 14:52 02/27/20 20:49 Tylenol - PO 650 mg Q6H PRN Administration PAIN LEVEL 1-5 Amino Acids 30 ml 02/28/20 17:30 02/28/20 17:09 Prosource No Carb Liquid Pkt PO 30 ml BID@0800,1730 REJI Administration Ascorbic Acid 500 mg 02/28/20 14:15 02/28/20 17:09 Vitamin C - PO 500 mg DAILY REJI Administration Atorvastatin Calcium 20 mg 02/21/20 22:00 02/28/20 21:10 Lipitor - PO 20 mg HS REJI Administration Colchicine 0.6 mg 02/21/20 19:00 02/28/20 09:00 Colcrys PO 0.6 mg DAILY REJI Administration Enalapril Maleate 2.5 mg 02/22/20 10:00 02/28/20 09:00 Vasotec - PO 2.5 mg DAILY REJI Administration Cefazolin Sodium 1 gm in 50 mls @ 100 mls/hr 02/28/20 18:00 02/29/20 01:17 Ancef 1 Gm Premixed Ivpb - IVPB 100 mls/hr Q8H-IV REJI Administration Insulin Aspart 1 vial 02/21/20 16:30 02/29/20 06:23 Novolog Vial Sliding Scale - SQ Not Given ACHS [facility] Protocol Insulin Detemir 20 units 02/26/20 14:18 02/28/20 21:10 Levemir Vial SQ 20 units HS REJI Administration Multivitamins/Minerals/Vitamin C 1 tab 02/28/20 14:30 02/28/20 17:09 Tab-A-Vit - PO 1 tab DAILY REJI Administration Oxycodone HCl 5 mg 02/27/20 12:57 02/27/20 20:47 Roxicodone - PO 5 mg Q4H PRN Administration PAIN LEVEL 1-5 Oxycodone HCl 10 mg 02/27/20 12:57 02/28/20 21:55 Roxicodone - PO 10 mg Q4H PRN Administration PAIN LEVEL 6-10 Pantoprazole Sodium 40 mg 02/21/20 18:30 02/28/20 09:00 Protonix - PO 40 mg DAILY REJI Administration Vital Signs (last) Temp Pulse Resp BP Pulse Ox 98.1 F 59 L 16 148/72 99 02/29/20 06:00 02/29/20 06:00 02/29/20 07:50 02/29/20 06:00 02/29/20 07:50 Laboratory (coagulation) PT with INR 14.1 SEC (10.2-13.0) H 02/28/20 07:09 Laboratory 02/28/20 07:09 02/28/20 07:09 ASSESSMENT AND PLAN Mr. Yates is a 59 year old male s/p Right infrapatellar bursitis / abscess I&D, POD 4 - improved symptoms Gram positive cocci in clusters and chains seen on gram stain, MSSA 1. Pain Control 3. DVT ppx 4. Continue IV antibiotics / ID follow up 5. Continue cold compresses to right knee 6. No signs of septic joint. 7. Continue medical management 8.Patient has had significantly improved symptoms with improved erythema and no discharge currently. Wound is packed and is being seen by wound care team. Will cancel repeat I&D for today. Can continue further conservative management and close follow up with in home dressing changes, and follow up with wound care yasmeen medina at [facility] as an outpatient, along with continued outpatient IV antibiotics. Discussed with wound care and infectious disease teams. All questions were answered. Thank you for involving our team in the care of this patient. We will follow the patient with you. Please call us with questions.
[2020-02-29] MEDS: AMINO ACIDS/PROTEIN HYDROLYS 30 ML LIQUID.PKT PO SCH ×2 (09:20→17:41)
[2020-02-29] MEDS: PANTOPRAZOLE 40 MG TABLET PO SCH (09:20)
[2020-02-29] MEDS: COLCHICINE 0.6 MG CAP PO SCH (09:20)
[2020-02-29] MEDS: MULTIVITAMINS (DAILY MVI) TABLET (FP) PO SCH (09:20)
[2020-02-29] MEDS: ASCORBIC ACID 500 MG TABLET (FP) PO SCH (09:20)
[2020-02-29] MEDS: ENALAPRIL MALEATE 2.5 MG TABLET (FP) PO SCH (09:20)
[2020-02-29] MEDS: oxyCODONE HCL 5 MG TABLET PO PRN ×2 (09:21→17:42)
--- NOTE | 2020-02-29 12:41 | PROC ---
Central Line Insertion - Procedure Note Indication: Other ([facility] IV access) Consent on Chart: No (Not indicated) Central Line: Other (Midline catheter placement) Position: Supine Area prepped with Chlorhexidine solution then draped using sterile barrier protection. Anesthesia: Lidocaine 1% Technique used: Modified Seldinger Ultrasound Guided Assistance: Yes Site: Left basilic vein Dark venous non-pulsatile flow noted from hub of needle. The catheter was introduced. Guide wire removed intact. Each port aspirated then flushed with sterile normal saline and capped. Line secured to skin with secure device. Sterile occlusive dressing applied. No complications. Patient tolerated the procedure well.
[2020-02-29] MEDS: ENOXAPARIN NA (PORCINE) 40 MG/0.4 ML DISP.SYRIN SQ SCH (14:31)
--- NOTE | 2020-02-29 15:20 | PN ---
Progress Note, Physician History of Present Illness: stable wound looks good - Current Medication List Current Medications: Active Medications Acetaminophen (Tylenol -) 650 mg PO Q6H PRN PRN Reason: PAIN LEVEL 1-5 Last Admin: 02/27/20 20:49 Dose: 650 mg Documented by: Amino Acids (Prosource No Carb Liquid Pkt) 30 ml PO BID@0800,1730 [facility] Last Admin: 02/29/20 09:20 Dose: 30 ml Documented by: Ascorbic Acid (Vitamin C -) 500 mg PO DAILY [facility] Last Admin: 02/29/20 09:20 Dose: 500 mg Documented by: Atorvastatin Calcium (Lipitor -) 20 mg PO [facility] Last Admin: 02/28/20 21:10 Dose: 20 mg Documented by: Colchicine (Colcrys) 0.6 mg PO DAILY [facility] Last Admin: 02/29/20 09:20 Dose: 0.6 mg Documented by: Enalapril Maleate (Vasotec -) 2.5 mg PO DAILY [facility] Last Admin: 02/29/20 09:20 Dose: 2.5 mg Documented by: Enoxaparin Sodium (Lovenox -) 40 mg SQ DAILY [facility] Last Admin: 02/29/20 14:31 Dose: 40 mg Documented by: Cefazolin Sodium (Ancef 1 Gm Premixed Ivpb -) 1 gm in 50 mls @ 100 mls/hr IVPB Q8H-IV [facility] Last Admin: 02/29/20 09:20 Dose: 100 mls/hr Documented by: Insulin Aspart (Novolog Vial Sliding Scale -) 1 vial SQ [facility]; Protocol Last Admin: 02/29/20 12:02 Dose: 2 units Documented by: Insulin Detemir (Levemir Vial) 20 units SQ [facility] Last Admin: 02/28/20 21:10 Dose: 20 units Documented by: Multivitamins/Minerals/Vitamin C (Tab-A-Vit -) 1 tab PO DAILY [facility] Last Admin: 02/29/20 09:20 Dose: 1 tab Documented by: Oxycodone HCl (Roxicodone -) 5 mg PO Q4H PRN PRN Reason: PAIN LEVEL 1-5 Last Admin: 02/27/20 20:47 Dose: 5 mg Documented by: Oxycodone HCl (Roxicodone -) 10 mg PO Q4H PRN PRN Reason: PAIN LEVEL 6-10 Last Admin: 02/29/20 09:21 Dose: 10 mg Documented by: Pantoprazole Sodium (Protonix -) 40 mg PO DAILY REJI Last Admin: 02/29/20 09:20 Dose: 40 mg Documented by: - Objective Vital Signs: Vital Signs Temperature 98.9 F 02/29/20 14:17 Pulse Rate 65 02/29/20 14:17 Respiratory Rate 18 02/29/20 14:17 Blood Pressure 146/67 02/29/20 14:17 O2 Sat by Pulse Oximetry (%) 100 02/29/20 14:17 Constitutional: Yes: No Distress, Calm Cardiovascular: Yes: S1, S2 Respiratory: Yes: Regular, CTA Bilaterally Gastrointestinal: Yes: Normal Bowel Sounds, Soft Musculoskeletal: Yes: WNL Extremities: Yes: Other Wound/Incision: Yes: Dressing Dry and Intact Neurological: Yes: Alert, Oriented Psychiatric: Yes: Alert, Oriented Labs: CBC, BMP 02/28/20 07:09 02/28/20 07:09 INR, PTT INR 1.27 (0.82-1.09) H 02/28/20 07:09 Assessment/Plan Problem List - Problems (1) Cellulitis Code(s): L03.90 - CELLULITIS, UNSPECIFIED (2) Gout Code(s): M10.9 - GOUT, UNSPECIFIED (3) Diabetes mellitus Code(s): E11.9 - TYPE 2 DIABETES MELLITUS WITHOUT COMPLICATIONS (4) HLD (hyperlipidemia) Code(s): E78.5 - HYPERLIPIDEMIA, UNSPECIFIED (5) HTN (hypertension) Code(s): I10 - ESSENTIAL (PRIMARY) HYPERTENSION Assessment/Plan Rt knee cellulitis Bursitis/?abscess patient to get 2 more weeks of ceftriaxone 2g daily wound care rest as per the team
[2020-02-29] MEDS: ACETAMINOPHEN 325 MG TABLET (FP) PO PRN (17:41)
[2020-02-29] MEDS: INSULIN (LEVEMIR) 100 UNITS/ML UNITS SQ SCH (21:10)
[2020-02-29] MEDS: ATORVASTATIN CA 20 MG TABLET (FP) PO SCH (21:11)
[2020-03-01] MEDS: CEFAZOLIN 1 GM/D5W 1 GM/50 ML BAG IVPB SCH ×3 (01:08→18:24)
[2020-03-01] MEDS: INSULIN SLIDING SCALE (NOVOLOG) 1 VIAL SQ SCH ×4 (06:30→21:49)
--- NOTE | 2020-03-01 09:08 | PN ---
Physical Exam: SUBJECTIVE: Patient seen and examined at bedside, reports Rt knee pain controlled, no other complains. OBJECTIVE: Vital Signs Period Temp Pulse Resp BP Sys/Wynne Pulse Ox Last 24 Hr 98.2 F-98.9 F 56-65 16-18 125-146/64-75 96-100 GENERAL: The patient is awake, alert, and fully oriented, in no acute distress. HEAD: Normal with no signs of trauma. EYES: PERRL, extraocular movements intact, sclera anicteric, conjunctiva clear. No ptosis. ENT: Ears normal, nares patent, oropharynx clear without exudates, moist mucous membranes. NECK: Trachea midline, full range of motion, supple. LUNGS: Breath sounds equal, clear to auscultation bilaterally, no wheezes, no crackles, no accessory muscle use. HEART: Regular rate and rhythm, S1, S2 without murmur, rub or gallop. ABDOMEN: Soft, nontender, nondistended, normoactive bowel sounds, no guarding, no rebound, no hepatosplenomegaly, no masses. EXTREMITIES: 2+ pulses, warm, well-perfused, RLE edema, Rt knee dsg intact NEUROLOGICAL: Cranial nerves II through XII grossly intact. Normal speech, gait not observed. PSYCH: Normal mood, normal affect. SKIN: Warm, dry, normal turgor, no rashes or lesions noted Laboratory Results - last 24 hr 02/29/20 02/29/20 02/29/20 07:33 07:33 11:54 ESR 92 H POC Glucometer 188 C-Reactive Protein 0.9 H 02/29/20 02/29/20 03/01/20 17:05 20:18 06:27 ESR POC Glucometer 131 177 128 C-Reactive Protein Active Medications Generic Name Dose Route Start Last Admin Trade Name Freq PRN Reason Stop Dose Admin Acetaminophen 650 mg 02/23/20 14:52 02/29/20 17:41 Tylenol - PO 650 mg Q6H PRN Administration PAIN LEVEL 1-5 Amino Acids 30 ml 02/28/20 17:30 02/29/20 17:41 Prosource No Carb Liquid Pkt PO 30 ml BID@0800,1730 REJI Administration Ascorbic Acid 500 mg 02/28/20 14:15 02/29/20 09:20 Vitamin C - PO 500 mg DAILY REJI Administration Atorvastatin Calcium 20 mg 02/21/20 22:00 02/29/20 21:11 Lipitor - PO 20 mg HS REJI Administration Colchicine 0.6 mg 02/21/20 19:00 02/29/20 09:20 Colcrys PO 0.6 mg DAILY REJI Administration Enalapril Maleate 2.5 mg 02/22/20 10:00 02/29/20 09:20 Vasotec - PO 2.5 mg DAILY REJI Administration Enoxaparin Sodium 40 mg 02/29/20 13:15 02/29/20 14:31 Lovenox - SQ 40 mg DAILY REJI Administration Cefazolin Sodium 1 gm in 50 mls @ 100 mls/hr 02/28/20 18:00 03/01/20 01:08 Ancef 1 Gm Premixed Ivpb - IVPB 100 mls/hr Q8H-IV REJI Administration Insulin Aspart 1 vial 02/21/20 16:30 03/01/20 06:30 Novolog Vial Sliding Scale - SQ Not Given ACHS [facility] Protocol Insulin Detemir 20 units 02/26/20 14:18 02/29/20 21:10 Levemir Vial SQ 20 units HS [facility] Administration Multivitamins/Minerals/Vitamin C 1 tab 02/28/20 14:30 02/29/20 09:20 Tab-A-Vit - PO 1 tab DAILY [facility] Administration Oxycodone HCl 5 mg 02/27/20 12:57 02/27/20 20:47 Roxicodone - PO 5 mg Q4H PRN Administration PAIN LEVEL 1-5 Oxycodone HCl 10 mg 02/27/20 12:57 02/29/20 17:42 Roxicodone - PO 10 mg Q4H PRN Administration PAIN LEVEL 6-10 Pantoprazole Sodium 40 mg 02/21/20 18:30 02/29/20 09:20 Protonix - PO 40 mg DAILY REJI Administration Microbiology 02/25/20 14:00 Knee - Right Gram Stain - Final 02/25/20 14:00 Knee - Right Wound Culture - Final Staphylococcus Latex Coag Pos 02/25/20 14:00 Knee - Right Gram Stain - Final 02/25/20 14:00 Knee - Right Wound Culture - Final Staphylococcus Latex Coag Pos 02/25/20 14:00 Knee - Right Gram Stain - Final 02/25/20 14:00 Knee - Right Wound Culture - Final Staphylococcus Aureus 02/21/20 09:51 Blood - Peripheral Venous Blood Culture - Final NO GROWTH AFTER 5 DAYS INCUBATION 02/21/20 09:51 Blood - Peripheral Venous Blood Culture - Final NO GROWTH AFTER 5 DAYS INCUBATION *Imaging Right knee xray: no fracture; no soft tissue air RLE US: negative for DVT CxR: No acute lung pathology CT RLE: Cellulitis of RT knee, inflammatory vs infectious ASSESSMENT/PLAN: 59 year-old male with a PMH significant for HTN, HLD, Type II NIDDM, and gout, admitted for right knee infrapatellar bursitis and abscess, now s/p I&D on 02/25/[address] Hidalgo. *Right knee infrapatellar bursitis and abscess s/p I&D - Wound culture positive for Staphylococcus Latex Coag Pos -POD #5 -sutures were removed on POD#2 -wound packing by ortho - ID following -s/p Vanc x 3 days, Zosyn x 6 days; continue cefazolin (day #3) until discharge, then switch to ceftriaxone 2g q24h x 14 days -afebrile with , no leukocytosis - BC no growth *Gout -h/o gouty arthritis -continue daily colchicine -stopped indomethacin - abnormal ESR, CRP -seen and evaluated by rheum, rec abx , e/p NSAIDs *Hypertension-BP stable -continue enalapril *Hyperlipidemia -continue Lipitor Type II NIDDM -HgbA1C 11.4 -FS improved on increased Levemir -Novolog sliding scale coverage *Hypkalemia -replete COVID -02/20 swab negative -02/26 COVID reswab - not detected FEN Fluids: PO intake adequate Electrolytes: replete as indicated Nutrition: low sodium, diabetic; NPO after midnight DVT prophylaxis: resume subq Lovenox Physical therapy Dispo: continues to require inpatient care. Midline placed. Case management making arrangements for VNS wound care. Patient will get IV infusions daily here at [facility]. Full code. Visit type - Emergency Visit Emergency Visit: Yes ED Registration Date: 02/21/20 Care time: The patient presented to the Emergency Department on the above date and was hospitalized for further evaluation of their emergent condition. - New Patient This patient is new to me today: Yes Date on this admission: 03/02/20 - Critical Care Critical Care patient: No
[2020-03-01] MEDS: COLCHICINE 0.6 MG CAP PO SCH (09:12)
[2020-03-01] MEDS: ENOXAPARIN NA (PORCINE) 40 MG/0.4 ML DISP.SYRIN SQ SCH (09:12)
[2020-03-01] MEDS: AMINO ACIDS/PROTEIN HYDROLYS 30 ML LIQUID.PKT PO SCH ×2 (09:12→18:24)
[2020-03-01] MEDS: ASCORBIC ACID 500 MG TABLET (FP) PO SCH (09:13)
[2020-03-01] MEDS: ENALAPRIL MALEATE 2.5 MG TABLET (FP) PO SCH (09:13)
[2020-03-01] MEDS: MULTIVITAMINS (DAILY MVI) TABLET (FP) PO SCH (09:13)
[2020-03-01] MEDS: PANTOPRAZOLE 40 MG TABLET PO SCH (09:13)
--- NOTE | 2020-03-01 14:39 | PN ---
Progress Note, Physician History of Present Illness: stable no new issues dressing dry and intact - Current Medication List Current Medications: Active Medications Acetaminophen (Tylenol -) 650 mg PO Q6H PRN PRN Reason: PAIN LEVEL 1-5 Last Admin: 02/29/20 17:41 Dose: 650 mg Documented by: Amino Acids (Prosource No Carb Liquid Pkt) 30 ml PO BID@0800,1730 [facility] Last Admin: 03/01/20 09:12 Dose: 30 ml Documented by: Ascorbic Acid (Vitamin C -) 500 mg PO DAILY [facility] Last Admin: 03/01/20 09:13 Dose: 500 mg Documented by: Atorvastatin Calcium (Lipitor -) 20 mg PO [facility] Last Admin: 02/29/20 21:11 Dose: 20 mg Documented by: Colchicine (Colcrys) 0.6 mg PO DAILY [facility] Last Admin: 03/01/20 09:12 Dose: 0.6 mg Documented by: Enalapril Maleate (Vasotec -) 2.5 mg PO DAILY [facility] Last Admin: 03/01/20 09:13 Dose: 2.5 mg Documented by: Enoxaparin Sodium (Lovenox -) 40 mg SQ DAILY [facility] Last Admin: 03/01/20 09:12 Dose: 40 mg Documented by: Cefazolin Sodium (Ancef 1 Gm Premixed Ivpb -) 1 gm in 50 mls @ 100 mls/hr IVPB Q8H-IV [facility] Last Admin: 03/01/20 09:12 Dose: 100 mls/hr Documented by: Insulin Aspart (Novolog Vial Sliding Scale -) 1 vial SQ [facility]; Protocol Last Admin: 03/01/20 12:59 Dose: 4 units Documented by: Insulin Detemir (Levemir Vial) 20 units SQ [facility] Last Admin: 02/29/20 21:10 Dose: 20 units Documented by: Multivitamins/Minerals/Vitamin C (Tab-A-Vit -) 1 tab PO DAILY [facility] Last Admin: 03/01/20 09:13 Dose: 1 tab Documented by: Pantoprazole Sodium (Protonix -) 40 mg PO DAILY [facility] Last Admin: 03/01/20 09:13 Dose: 40 mg Documented by: - Objective Vital Signs: Vital Signs Temperature 98.8 F 03/01/20 14:00 Pulse Rate 60 03/01/20 14:00 Respiratory Rate 16 03/01/20 14:00 Blood Pressure 139/77 03/01/20 14:00 O2 Sat by Pulse Oximetry (%) 97 03/01/20 14:00 Constitutional: Yes: No Distress, Calm Cardiovascular: Yes: S1, S2 Respiratory: Yes: Regular, CTA Bilaterally Gastrointestinal: Yes: Normal Bowel Sounds, Soft Musculoskeletal: Yes: WNL Extremities: Yes: WNL Wound/Incision: Yes: Dressing Dry and Intact Neurological: Yes: Alert, Oriented Psychiatric: Yes: Alert, Oriented Labs: CBC, BMP 02/28/20 07:09 02/28/20 07:09 INR, PTT INR 1.27 (0.82-1.09) H 02/28/20 07:09 Assessment/Plan Problem List - Problems (1) Cellulitis Code(s): L03.90 - CELLULITIS, UNSPECIFIED (2) Gout Code(s): M10.9 - GOUT, UNSPECIFIED (3) Diabetes mellitus Code(s): E11.9 - TYPE 2 DIABETES MELLITUS WITHOUT COMPLICATIONS (4) HLD (hyperlipidemia) Code(s): E78.5 - HYPERLIPIDEMIA, UNSPECIFIED (5) HTN (hypertension) Code(s): I10 - ESSENTIAL (PRIMARY) HYPERTENSION burisitis abscess of the knee Assessment/Plan Rt knee cellulitis Bursitis/?abscess continue abx wound care rest as per the team
[2020-03-01] MEDS: ATORVASTATIN CA 20 MG TABLET (FP) PO SCH (21:50)
[2020-03-01] MEDS: INSULIN (LEVEMIR) 100 UNITS/ML UNITS SQ SCH (21:50)
[2020-03-02] MEDS: CEFAZOLIN 1 GM/D5W 1 GM/50 ML BAG IVPB SCH ×3 (01:49→19:05)
[2020-03-02] MEDS: INSULIN SLIDING SCALE (NOVOLOG) 1 VIAL SQ SCH ×4 (06:27→21:26)
--- NOTE | 2020-03-02 09:44 | PN ---
Physical Exam: SUBJECTIVE: Patient seen and examined at bedside, reports mild RT knee pain, no other complains. OBJECTIVE: Vital Signs Period Temp Pulse Resp BP Sys/Wynne Pulse Ox Last 24 Hr 98 F-99.0 F 55-60 16-16 122-151/68-77 97-99 GENERAL: The patient is awake, alert, and fully oriented, in no acute distress. HEAD: Normal with no signs of trauma. EYES: PERRL, extraocular movements intact, sclera anicteric, conjunctiva clear. No ptosis. ENT: Ears normal, nares patent, oropharynx clear without exudates, moist mucous membranes. NECK: Trachea midline, full range of motion, supple. LUNGS: Breath sounds equal, clear to auscultation bilaterally, no wheezes, no crackles, no accessory muscle use. HEART: Regular rate and rhythm, S1, S2 without murmur, rub or gallop. ABDOMEN: Soft, nontender, nondistended, normoactive bowel sounds, no guarding, no rebound, no hepatosplenomegaly, no masses. EXTREMITIES: 2+ pulses, warm, well-perfused, mild Rt knee edema, dsg intact NEUROLOGICAL: Cranial nerves II through XII grossly intact. Normal speech, gait not observed. PSYCH: Normal mood, normal affect. SKIN: Warm, dry, normal turgor, no rashes or lesions noted Laboratory Results - last 24 hr 03/01/20 03/01/20 03/01/20 12:52 18:19 21:47 POC Glucometer 212 182 138 03/02/20 06:20 POC Glucometer 170 Active Medications Generic Name Dose Route Start Last Admin Trade Name Rodriguezq PRN Reason Stop Dose Admin Acetaminophen 650 mg 02/23/20 14:52 02/29/20 17:41 Tylenol - PO 650 mg Q6H PRN Administration PAIN LEVEL 1-5 Amino Acids 30 ml 02/28/20 17:30 03/01/20 18:24 Prosource No Carb Liquid Pkt PO 30 ml BID@0800,1730 REJI Administration Ascorbic Acid 500 mg 02/28/20 14:15 03/01/20 09:13 Vitamin C - PO 500 mg DAILY REJI Administration Atorvastatin Calcium 20 mg 02/21/20 22:00 03/01/20 21:50 Lipitor - PO 20 mg HS REJI Administration Colchicine 0.6 mg 02/21/20 19:00 03/01/20 09:12 Colcrys PO 0.6 mg DAILY REJI Administration Enalapril Maleate 2.5 mg 02/22/20 10:00 03/01/20 09:13 Vasotec - PO 2.5 mg DAILY REJI Administration Enoxaparin Sodium 40 mg 02/29/20 13:15 03/01/20 09:12 Lovenox - SQ 40 mg DAILY REJI Administration Cefazolin Sodium 1 gm in 50 mls @ 100 mls/hr 02/28/20 18:00 03/02/20 01:49 Ancef 1 Gm Premixed Ivpb - IVPB 100 mls/hr Q8H-IV REJI Administration Insulin Aspart 1 vial 02/21/20 16:30 03/02/20 06:27 Novolog Vial Sliding Scale - SQ 2 units ACHS REJI Administration Protocol Insulin Detemir 20 units 02/26/20 14:18 03/01/20 21:50 Levemir Vial SQ 20 units HS REJI Administration Multivitamins/Minerals/Vitamin C 1 tab 02/28/20 14:30 03/01/20 09:13 Tab-A-Vit - PO 1 tab DAILY REJI Administration Pantoprazole Sodium 40 mg 02/21/20 18:30 03/01/20 09:13 Protonix - PO 40 mg DAILY REJI Administration Microbiology 02/25/20 14:00 Knee - Right Gram Stain - Final 02/25/20 14:00 Knee - Right Wound Culture - Final Staphylococcus Latex Coag Pos 02/25/20 14:00 Knee - Right Gram Stain - Final 02/25/20 14:00 Knee - Right Wound Culture - Final Staphylococcus Latex Coag Pos 02/25/20 14:00 Knee - Right Gram Stain - Final 02/25/20 14:00 Knee - Right Wound Culture - Final Staphylococcus Aureus 02/21/20 09:51 Blood - Peripheral Venous Blood Culture - Final NO GROWTH AFTER 5 DAYS INCUBATION 02/21/20 09:51 Blood - Peripheral Venous Blood Culture - Final NO GROWTH AFTER 5 DAYS INCUBATION *Imaging Right knee xray: no fracture; no soft tissue air RLE US: negative for DVT CxR: No acute lung pathology CT RLE: Cellulitis of RT knee, inflammatory vs infectious ASSESSMENT/PLAN: 59 year-old male with a PMH significant for HTN, HLD, Type II NIDDM, and gout, admitted for right knee infrapatellar bursitis and abscess, now s/p I&D on 02/25/[address] Hidalgo. *Right knee infrapatellar bursitis and abscess s/p I&D - Wound culture positive for Staphylococcus Latex Coag Pos -POD #6 -sutures were removed on POD#3 -wound packing - ID following -s/p Vanc x 3 days, Zosyn x 6 days; continue cefazolin (day #3) until discharge, then switch to ceftriaxone 2g q24h x 14 days -afebrile with , no leukocytosis - BC no growth *Gout -h/o gouty arthritis -continue daily colchicine -stopped indomethacin - abnormal ESR, CRP -seen and evaluated by rheum, rec abx , s/p NSAIDs *Hypertension-BP stable -continue enalapril *Hyperlipidemia -continue Lipitor Type II NIDDM -HgbA1C 11.4 -FS improved on increased Levemir -Novolog sliding scale coverage *Hypkalemia -replete COVID -02/20 swab negative -02/26 COVID reswab - not detected FEN Fluids: PO intake adequate Electrolytes: replete as indicated Nutrition: low sodium, diabetic; NPO after midnight DVT prophylaxis: resume subq Lovenox Physical therapy Dispo: continues to require inpatient care. Midline placed. Case management making arrangements for [facility] wound care. Patient will get IV infusions daily here at [facility]. Patient has been accepted by [facility] for home wound care, per [facility] wound care services will start on Tuesday. Full code. Visit type - Emergency Visit Emergency Visit: Yes ED Registration Date: 02/21/20 Care time: The patient presented to the Emergency Department on the above date and was hospitalized for further evaluation of their emergent condition. - New Patient This patient is new to me today: No - Critical Care Critical Care patient: No - Discharge Referral Referred to [facility] Med P.C.: No
[2020-03-02] MEDS: ENALAPRIL MALEATE 2.5 MG TABLET (FP) PO SCH (10:15)
[2020-03-02] MEDS: AMINO ACIDS/PROTEIN HYDROLYS 30 ML LIQUID.PKT PO SCH ×2 (10:15→19:04)
[2020-03-02] MEDS: COLCHICINE 0.6 MG CAP PO SCH (10:15)
[2020-03-02] MEDS: MULTIVITAMINS (DAILY MVI) TABLET (FP) PO SCH (10:15)
[2020-03-02] MEDS: ENOXAPARIN NA (PORCINE) 40 MG/0.4 ML DISP.SYRIN SQ SCH (10:15)
[2020-03-02] MEDS: PANTOPRAZOLE 40 MG TABLET PO SCH (10:15)
[2020-03-02] MEDS: ASCORBIC ACID 500 MG TABLET (FP) PO SCH (10:16)
[2020-03-02] MEDS: ATORVASTATIN CA 20 MG TABLET (FP) PO SCH (21:24)
[2020-03-02] MEDS: INSULIN (LEVEMIR) 100 UNITS/ML UNITS SQ SCH (21:25)
[2020-03-03] MEDS: CEFAZOLIN 1 GM/D5W 1 GM/50 ML BAG IVPB SCH (01:21)
[2020-03-03 01:54] VITALS: TEMP 98.2
[2020-03-03] MEDS: INSULIN SLIDING SCALE (NOVOLOG) 1 VIAL SQ SCH (06:38)
[2020-03-03 06:54] VITALS: BP 147/78; PULSE 53
--- NOTE | 2020-03-03 08:53 | DS ---
Physical Exam: SUBJECTIVE: Patient seen and examined OBJECTIVE: Vital Signs Period Temp Pulse Resp BP Sys/Wynne Pulse Ox Last 24 Hr 98.2 F-98.5 F 53-63 17-17 141-151/75-86 92-98 PHYSICAL EXAM GENERAL: Awake, alert, and fully oriented, in no acute distress. HEART: Regular rate and rhythm, normal S1 and S2 ABDOMEN: Soft, nontender, not distended RLE: surgical dressing removed, wound visualized, packing in place, knee swollen, tender NEUROLOGICAL: Cranial nerves II-XII intact. Normal speech. LABS CBCD WBC 8.0 K/mm3 (4.0-10.8) 02/28/20 07:09 RBC 4.47 M/mm3 (4.00-5.60) 02/28/20 07:09 Hgb 13.4 GM/dl (11.7-16.9) 02/28/20 07:09 Hct 40.8 % (35.4-49) 02/28/20 07:09 MCV 91.3 fl (80-96) 02/28/20 07:09 MCHC 32.7 g/dl (32.0-35.9) 02/28/20 07:09 RDW 11.5 % (11.9-15.9) L 02/28/20 07:09 Plt Count 481 K/MM3 (134-434) H 02/28/20 07:09 MPV 6.8 fl (7.5-11.1) L 02/28/20 07:09 CMP Sodium 142 mmol/L (136-145) 02/28/20 07:09 Potassium 3.4 mmol/L (3.5-5.1) L 02/28/20 07:09 Chloride 103 mmol/L (98-107) 02/28/20 07:09 Carbon Dioxide 26 mmol/L (21-32) 02/28/20 07:09 Anion Gap 13 MMOL/L (8-16) 02/28/20 07:09 BUN 9.0 mg/dl (7-18) 02/28/20 07:09 Creatinine 0.5 mg/dl (0.55-1.3) L 02/28/20 07:09 Calcium 8.9 mg/dl (8.5-10) 02/28/20 07:09 Total Bilirubin 0.6 mg/dl (0.2-1) 02/28/20 07:09 AST 24 U/L (15-37) 02/28/20 07:09 ALT 34 U/L (13-61) 02/28/20 07:09 Alkaline Phosphatase 57 U/L (45-117) 02/28/20 07:09 Total Protein 7.1 g/dl (6.4-8.2) 02/28/20 07:09 Albumin 2.7 g/dl (3.4-5.0) L 02/28/20 07:09 HOSPITAL COURSE: Date of Admission:02/21/20 Date of Discharge: 03/03/20 Pre hospital course 59 year-old male with a PMH significant for HTN, HLD, Type II NIDDM, and gout. Patient presented to ED with redness, pain and swelling to his left index finger and right knee x 1 week. His last gout flare was in 2011 and he has been on no preventive medications. He was seen at an urgent care and was prescribed a 3-day course of colchicine and indomethacin which he finished 3 days ago. His symptoms persisted which prompted him to come to the ED today. Denies fever, sweats, chills. Denies any other injuries. ER course (1) Right knee xray: no fracture; no soft tissue air (2) RLE US: negative for DVT Subsequent hospital course 59 year-old male with a PMH significant for HTN, HLD, Type II NIDDM, and gout, admitted for right knee infrapatellar bursitis and abscess. Right knee infrapatellar bursitis and abscess s/p I&D on 02/25/20 Staph aureus cellulitis --sutures were removed on POD#2 and wound was packed --treated with Vanc x 3 days, Zosyn x 6 days; continued cefazolin; --discharged on ceftriaxone 2g q24h x 13 days; midline placed; will come to [facility] for daily infusion Gout --h/o gouty arthritis --continue daily colchicine --stopped indomethacin --seen and evaluated by rheum Hypertension --BP stable --continued enalapril Hyperlipidemia --continued Lipitor Type II NIDDM --HgbA1C 11.4 --FS improved on increased Levemir --Novolog sliding scale coverage COVID --02/20 swab negative --02/26 swab negative Minutes to complete discharge: 35 Discharge Summary Problems reviewed: Yes Reason For Visit: RIGHT KNEE PAIN Current Active Problems Abscess of right lower extremity (Acute) Cellulitis (Acute) Gout (Acute) Hyperglycemia (Acute) Prepatellar bursitis (Acute) Condition: Improved - Instructions Diet, Activity, Other Instructions: 1. Prescriptions have been sent to your pharmacy for colchicine and for short and long-acting insulins. You need to followup with your primary care provider, Dr. Maria, within one week of your discharge. You will need refills of these prescriptions which Dr. Maria can give you. 2. Starting tomorrow, March 04, 2020, you will come to [facility] for daily infusions of an IV antibiotic. You will do this for 13 days in a row. It is very important you come every day for 13 days. 3. You have an appointment with Dr. Mario Westfall at [facility] on March 10 at 11:30am. [facility] wound care instructions: [facility] for wound care to right knee. Irrigate wound daily with 10 cc Normal saline. Pack wound with iodoform (1/4 inch) packing daily and cover with 4x4 gauze. Referrals: Mario Westfall DO [Staff Physician] - 03/10/20 11:30 am Disposition: [facility]HOME HEALTH CARE - Home Medications Comprehensive Discharge Medication List: Ambulatory Orders Atorvastatin Ca [Lipitor] 20 mg PO HS 02/21/20 Cholecalciferol (Vitamin D3) [Vitamin D3] 5,000 unit PO DAILY 02/21/20 Colchicine 0.6 mg PO ASDIR 02/21/20 Enalapril Maleate 2.5 mg PO DAILY 02/21/20 Glimepiride 4 mg PO BID 02/21/20 Indomethacin 50 mg PO Q8H 02/21/20 Metformin HCl [Glucophage] 500 mg PO BID 02/21/20 This patient is new to me today: No Emergency Visit: Yes ED Registration Date: 02/21/20 Care time: The patient presented to the Emergency Department on the above date and was hospitalized for further evaluation of their emergent condition. Critical Care patient: No - Discharge Referral Referred to [facility] Med P.C.: No
[2020-03-03] MEDS: PANTOPRAZOLE 40 MG TABLET PO SCH (09:50)
[2020-03-03] MEDS: AMINO ACIDS/PROTEIN HYDROLYS 30 ML LIQUID.PKT PO SCH (09:50)
[2020-03-03] MEDS: ENALAPRIL MALEATE 2.5 MG TABLET (FP) PO SCH (09:50)
[2020-03-03] MEDS: ENOXAPARIN NA (PORCINE) 40 MG/0.4 ML DISP.SYRIN SQ SCH (09:50)
[2020-03-03] MEDS: COLCHICINE 0.6 MG CAP PO SCH (09:50)
[2020-03-03] MEDS: MULTIVITAMINS (DAILY MVI) TABLET (FP) PO SCH (09:50)
[2020-03-03] MEDS: ASCORBIC ACID 500 MG TABLET (FP) PO SCH (09:50)
[2020-03-03] MEDS ORDERED: CEFTRIAXONE 2 GM-D5W BAG 2 GM/50 ML BAG IVPB SCH (10:00)
--- NOTE | 2020-03-03 10:53 | PN ---
Progress Note (short form) - Note Progress Note: ORTHOPEDIC SURGERY PROGRESS NOTE Department of Orthopedic Surgery SUBJECTIVE No acute events overnight. No complaints currently. Denies chest pain, shortness of breath, or calf pain. No nausea or vomiting. Tolerating oral intake. S/P Right knee I&D. Pain improved, patient able to ambulate on his own this morning without discomfort. Wound was irrigated and packed with iodoform packing being managed by wound care surgical team. PHYSICAL EXAMINATION General: Alert, oriented, cooperative and no distress. Right Lower Extremity: Dressing intact; Iodoform packing intact, sutures removed; wound healing with significantly improved erythema and significantly improved swelling around the wound site without discharge. Muscle mass equal and symmetric to contralateral side. No atrophy noted. No masses or effusions noted. Tender to palpation over the wound; nontender throughout rest of extremity. No cords or calf tenderness; No ankle edema. Full passive and active ROM of the hip, ankle, and toes, free from pain. LROM of the knee secondary to swelling - but improved; Joints stable with no pathologic laxity. EHL/TA/GS motor intact; SILT distally; 2+ DP pulses; Cap refill brisk. Tone and reflexes normal. DVT Exam: No evidence of DVT seen on physical exam; No cords or calf tenderness; No significant calf/ankle edema. Intake & Output 03/01/20 03/02/20 03/03/20 23:59 23:59 23:59 Intake Total 1720 930 50 Balance 1720 930 50 Intake: IV 120 saline lock 120 IVPB 100 50 50 Oral 1500 880 Other: Voiding Method Toilet Toilet Toilet # Unmeasured Voids Void 1 2 2 Bowel Movement No No No Active Medications Generic Name Dose Route Start Last Admin Trade Name Freq PRN Reason Stop Dose Admin Acetaminophen 650 mg 02/23/20 14:52 02/29/20 17:41 Tylenol - PO 650 mg Q6H PRN Administration PAIN LEVEL 1-5 Amino Acids 30 ml 02/28/20 17:30 03/03/20 09:50 Prosource No Carb Liquid Pkt PO 30 ml BID@0800,1730 REJI Administration Ascorbic Acid 500 mg 02/28/20 14:15 03/03/20 09:50 Vitamin C - PO 500 mg DAILY REJI Administration Atorvastatin Calcium 20 mg 02/21/20 22:00 08/23/20 21:24 Lipitor - PO 20 mg HS REJI Administration Colchicine 0.6 mg 02/21/20 19:00 03/03/20 09:50 Colcrys PO 0.6 mg DAILY REJI Administration Enalapril Maleate 2.5 mg 02/22/20 10:00 03/03/20 09:50 Vasotec - PO 2.5 mg DAILY REJI Administration Enoxaparin Sodium 40 mg 02/29/20 13:15 03/03/20 09:50 Lovenox - SQ 40 mg DAILY REJI Administration Ceftriaxone Sodium 2 gm in 50 mls @ 100 mls/hr 03/03/20 10:00 03/03/20 09:50 Ceftriaxone 2 Gm-D5w Bag IVPB 100 mls/hr DAILY REJI Administration Protocol Insulin Aspart 1 vial 02/21/20 16:30 03/03/20 06:38 Novolog Vial Sliding Scale - SQ Not Given ACHS [facility] Protocol Insulin Detemir 20 units 02/26/20 14:18 03/02/20 21:25 Levemir Vial SQ 20 units HS REJI Administration Multivitamins/Minerals/Vitamin C 1 tab 02/28/20 14:30 03/03/20 09:50 Tab-A-Vit - PO 1 tab DAILY REJI Administration Pantoprazole Sodium 40 mg 02/21/20 18:30 03/03/20 09:50 Protonix - PO 40 mg DAILY REJI Administration Vital Signs (last) Temp Pulse Resp BP Pulse Ox 98.2 F 53 L 17 147/78 92 L 03/03/20 06:00 03/03/20 06:00 03/03/20 06:00 03/03/20 06:00 03/03/20 06:00 Laboratory (coagulation) PT with INR 14.1 SEC (10.2-13.0) H 02/28/20 07:09 Laboratory 02/28/20 07:09 02/28/20 07:09 ASSESSMENT AND PLAN Mr. Yates is a 59 year old male s/p Right infrapatellar bursitis / abscess I&D, POD 7 - improved symptoms Gram positive cocci in clusters and chains seen on gram stain, MSSA 1. Pain Control 3. DVT ppx 4. Continue IV antibiotics / ID follow up 5. Continue cold compresses to right knee 6. No signs of septic joint. 7. Continue medical management 8.Patient has had significantly improved symptoms with improved erythema and no discharge currently. Wound is packed and is being seen by wound care team. 9. Can continue further conservative management and close follow up with in home dressing changes, and follow up with wound care clinic at [facility] as an outpatient, along with continued outpatient IV antibiotics. Discussed with wound care and infectious disease teams. All questions were answered. Thank you for involving our team in the care of this patient. We will follow the patient with you. Please call us with questions.
== END 2020-03-03 11:38 | disposition home health service (06) | DRG 558 ==
LOC: FER 08:53 → EDBD 08:53 → FM/S 13:13
PROVIDERS: ADMIT Internal Medicine; ATTEND Nurse Practitioner Acute Care
PROC: 0S9C3ZX Drainage of Right Knee Joint, Percutaneous Approach, Diagnostic (ICD-10-PCS; principal; 2020-02-23)
PROC: 0J9N0ZX Drainage of Right Lower Leg Subcutaneous Tissue and Fascia, Open Approach, Diagnostic (ICD-10-PCS; 2020-02-25)
PROC: 3E10X8Z Irrigation of Skin and Mucous Membranes using Irrigating Substance (ICD-10-PCS; 2020-02-25)
PROC: 05HC33Z Insertion of Infusion Device into Left Basilic Vein, Percutaneous Approach (ICD-10-PCS; 2020-02-29)
DX: M70.41 Prepatellar bursitis, right knee (principal); L03.115 Cellulitis of right lower limb; L02.415 Cutaneous abscess of right lower limb; M79.671 Pain in right foot; B95.61 Methicillin susceptible Staphylococcus aureus infection as the cause of diseases classified elsewhere; I10 Essential (primary) hypertension; E78.5 Hyperlipidemia, unspecified; E87.6 Hypokalemia; E11.9 Type 2 diabetes mellitus without complications; M1A.9XX0 Chronic gout, unspecified, without tophus (tophi); S80.01XA Contusion of right knee, initial encounter; X58.XXXA Exposure to other specified factors, initial encounter
CPT/HCPCS: 36415; 71046-TC-FY; 73562-TC-RT-FY; 73700-TC-RT; 80048; 80053; 82962; 83036; 83735; 84484; 84550; 85025; 85610; 85651; 85730; 86140; 86850; 86900; 86901; 87040; 87070; 87186; 87205; 93005; 93971-TC; 94760; 97116-GP; 97162-GP; 99285-25; G0480; J0131; U0003

== ENCOUNTER 2020-03-09 11:34 | Day surgery (SDC) | payer BC, OTHER ==
[2020-03-09 12:07] VITALS: BP 116/70; PULSE 72; TEMP 98.6; BMI 33.0
[2020-03-09] MEDS ORDERED: DEXTROSE 5%-WATER 100 ML IVPB ONE (12:27)
[2020-03-09] MEDS ORDERED: CEFTRIAXONE 2 GM in DEXTROSE 5%-WATER 100 ML IVPB ONE (12:30)
== END 2020-03-09 13:30 | disposition home or self-care (01) ==
LOC: FINFUSION 11:34 → FM/S 11:44 → FINFUSION 13:30
PROVIDERS: ATTEND Nurse Practitioner Acute Care
DX: L03.115 Cellulitis of right lower limb (principal); B95.61 Methicillin susceptible Staphylococcus aureus infection as the cause of diseases classified elsewhere; I10 Essential (primary) hypertension; E78.5 Hyperlipidemia, unspecified; E11.9 Type 2 diabetes mellitus without complications; M10.9 Gout, unspecified; Z79.4 Long term (current) use of insulin
CPT/HCPCS: 96365

== ENCOUNTER 2020-03-11 09:53 | Day surgery (SDC) | payer BC, OTHER ==
[2020-03-11] MEDS ORDERED: SODIUM CHLORIDE 100 ML IVPB ONE (10:08)
[2020-03-11 10:20] VITALS: TEMP 97.8
[2020-03-11] MEDS ORDERED: CEFTRIAXONE 2 GM in DEXTROSE 5%-WATER 100 ML IVPB ONE (10:30)
[2020-03-11] MEDS ORDERED: CEFTRIAXONE 2 GM in SODIUM CHLORIDE 100 ML IVPB ONE (10:30)
[2020-03-11 11:06] VITALS: BP 122/56; PULSE 67
== END 2020-03-11 10:50 | disposition home or self-care (01) ==
LOC: FINFUSION 09:53 → FM/S 10:03 → FINFUSION 10:50
PROVIDERS: ATTEND Nurse Practitioner Acute Care
DX: L03.115 Cellulitis of right lower limb (principal); B95.61 Methicillin susceptible Staphylococcus aureus infection as the cause of diseases classified elsewhere; I10 Essential (primary) hypertension; E78.5 Hyperlipidemia, unspecified; E11.9 Type 2 diabetes mellitus without complications; Z79.4 Long term (current) use of insulin
CPT/HCPCS: 96365

== ENCOUNTER 2020-03-12 11:33 | Day surgery (SDC) | payer BC, OTHER ==
[2020-03-12 11:57] VITALS: TEMP 97.8
[2020-03-12] MEDS ORDERED: CEFTRIAXONE 2 GM in SODIUM CHLORIDE 100 ML IVPB ONE (12:00)
[2020-03-12 12:28] VITALS: BP 122/67; PULSE 76
== END 2020-03-12 12:30 | disposition home or self-care (01) ==
LOC: FINFUSION 11:33 → FM/S 11:38 → FINFUSION 12:30
PROVIDERS: ATTEND Nurse Practitioner Acute Care
DX: L03.115 Cellulitis of right lower limb (principal); B95.61 Methicillin susceptible Staphylococcus aureus infection as the cause of diseases classified elsewhere; I10 Essential (primary) hypertension; E78.5 Hyperlipidemia, unspecified; E11.9 Type 2 diabetes mellitus without complications; Z79.4 Long term (current) use of insulin
CPT/HCPCS: 96365

== ENCOUNTER 2020-03-13 13:12 | Day surgery (SDC) | payer BC, OTHER ==
[2020-03-13] MEDS ORDERED: CEFTRIAXONE 2 GM in SODIUM CHLORIDE 100 ML IVPB ONE (14:00)
[2020-03-13 14:04] VITALS: BP 106/68; PULSE 78; TEMP 98.7
== END 2020-03-13 14:00 | disposition home or self-care (01) ==
LOC: FINFUSION 13:12 → FM/S 13:15 → FINFUSION 14:00
PROVIDERS: ATTEND Nurse Practitioner Acute Care
DX: L03.115 Cellulitis of right lower limb (principal); B95.61 Methicillin susceptible Staphylococcus aureus infection as the cause of diseases classified elsewhere; I10 Essential (primary) hypertension; E11.9 Type 2 diabetes mellitus without complications; Z79.4 Long term (current) use of insulin
CPT/HCPCS: 96365

== ENCOUNTER 2020-03-14 13:11 | Day surgery (SDC) | payer BC, OTHER ==
[2020-03-14] MEDS ORDERED: SODIUM CHLORIDE 100 ML IVPB ONE (13:28)
[2020-03-14] MEDS ORDERED: CEFTRIAXONE 2 GM in SODIUM CHLORIDE 100 ML IVPB ONE (13:30)
[2020-03-14 13:40] VITALS: TEMP 97.6
[2020-03-14 14:09] VITALS: BP 132/70; PULSE 67
== END 2020-03-14 14:37 | disposition home or self-care (01) ==
LOC: FINFUSION 13:11 → FM/S 13:14 → FINFUSION 14:37
PROVIDERS: ATTEND Nurse Practitioner Acute Care
DX: L03.115 Cellulitis of right lower limb (principal); B95.61 Methicillin susceptible Staphylococcus aureus infection as the cause of diseases classified elsewhere; I10 Essential (primary) hypertension; E11.9 Type 2 diabetes mellitus without complications; Z79.4 Long term (current) use of insulin
CPT/HCPCS: 96365

== ENCOUNTER 2020-03-15 09:46 | Day surgery (SDC) | payer BC, OTHER ==
[~2020-03-15 09:46] MED LIST: CEFTRIAXONE 2 GM in DEXTROSE 5%-WATER 100 ML IVPB ONE
[2020-03-15] MEDS ORDERED: CEFTRIAXONE 2 GM-D5W BAG 2 GM/50 ML BAG IVPB STA (10:12)
[2020-03-15 10:14] VITALS: PULSE 68; TEMP 97.8
[2020-03-16] MEDS ORDERED: CEFTRIAXONE 2 GM-D5W BAG 2 GM/50 ML BAG IVPB SCH (10:00)
== END 2020-03-15 10:33 | disposition home or self-care (01) ==
LOC: FINFUSION 09:46
PROVIDERS: ATTEND Nurse Practitioner Acute Care
DX: L03.115 Cellulitis of right lower limb (principal); B95.61 Methicillin susceptible Staphylococcus aureus infection as the cause of diseases classified elsewhere; I10 Essential (primary) hypertension; E11.9 Type 2 diabetes mellitus without complications; Z79.4 Long term (current) use of insulin
CPT/HCPCS: 96365

== ENCOUNTER 2020-03-16 11:28 | Day surgery (SDC) | payer BC ==
[2020-03-16 12:09] VITALS: BP 125/81; PULSE 75; TEMP 98.7; BMI 33.0
[2020-03-16] MEDS ORDERED: DEXTROSE 5%-WATER 100 ML IVPB ONE (12:22)
[2020-03-16] MEDS ORDERED: CEFTRIAXONE 2 GM in DEXTROSE 5%-WATER 100 ML IVPB ONE (12:30)
== END 2020-03-16 13:30 | disposition home or self-care (01) ==
LOC: FINFUSION 11:28 → FM/S 12:01 → FINFUSION 13:30
PROVIDERS: ATTEND Nurse Practitioner Acute Care
DX: L03.115 Cellulitis of right lower limb (principal); B95.61 Methicillin susceptible Staphylococcus aureus infection as the cause of diseases classified elsewhere; I10 Essential (primary) hypertension; E11.9 Type 2 diabetes mellitus without complications; Z79.4 Long term (current) use of insulin
CPT/HCPCS: 96365

== ENCOUNTER 2020-03-17 10:58 | Day surgery (SDC) | payer BC, OTHER ==
[2020-03-17] MEDS ORDERED: CEFTRIAXONE 2 GM-D5W BAG 2 GM/50 ML BAG IVPB ONE (12:25)
[2020-03-17 12:38] VITALS: BP 133/81; PULSE 77; TEMP 98.5
== END 2020-03-17 12:50 | disposition home or self-care (01) ==
LOC: FINFUSION 10:58 → FM/S 10:58 → FINFUSION 12:50
PROVIDERS: ATTEND Nurse Practitioner Acute Care
DX: L03.115 Cellulitis of right lower limb (principal); B95.61 Methicillin susceptible Staphylococcus aureus infection as the cause of diseases classified elsewhere; I10 Essential (primary) hypertension; E11.9 Type 2 diabetes mellitus without complications; Z79.4 Long term (current) use of insulin
CPT/HCPCS: 96365; 96366; 96367

== ENCOUNTER 2020-03-18 10:57 | Day surgery (SDC) | payer BC, OTHER ==
[2020-03-18 11:29] VITALS: BP 129/77; PULSE 84; TEMP 98.5; BMI 33.2
[2020-03-18] MEDS ORDERED: CEFTRIAXONE 2 GM in SODIUM CHLORIDE 100 ML IVPB ONE (11:30)
== END 2020-03-18 12:24 | disposition home or self-care (01) ==
LOC: FINFUSION 10:57 → FM/S 10:59 → FINFUSION 12:24
PROVIDERS: ATTEND Nurse Practitioner Acute Care
DX: L03.115 Cellulitis of right lower limb (principal); B95.61 Methicillin susceptible Staphylococcus aureus infection as the cause of diseases classified elsewhere; I10 Essential (primary) hypertension; E11.9 Type 2 diabetes mellitus without complications; Z79.4 Long term (current) use of insulin
CPT/HCPCS: 96365; 96366; 96367

== ENCOUNTER 2020-03-19 09:55 | Day surgery (SDC) | payer BC, OTHER ==
[2020-03-19] MEDS ORDERED: SODIUM CHLORIDE 100 ML IVPB ONE (10:17)
[2020-03-19] MEDS ORDERED: CEFTRIAXONE 2 GM in SODIUM CHLORIDE 100 ML IVPB ONE (10:30)
[2020-03-19 11:17] VITALS: BP 122/74; PULSE 74; TEMP 98.3
== END 2020-03-19 11:19 | disposition home or self-care (01) ==
LOC: FINFUSION 09:55 → FM/S 09:57 → FINFUSION 11:19
PROVIDERS: ATTEND Nurse Practitioner Acute Care
DX: L03.115 Cellulitis of right lower limb (principal); B95.61 Methicillin susceptible Staphylococcus aureus infection as the cause of diseases classified elsewhere; E11.9 Type 2 diabetes mellitus without complications; Z79.4 Long term (current) use of insulin
CPT/HCPCS: 96365

== ENCOUNTER 2023-03-05 16:35 | Emergency (ER) | payer BC, OTHER ==
[2023-03-05 17:14] VITALS: BP 166/95; PULSE 82; RESP 16; TEMP 99; BMI 35.9
== END 2023-03-05 18:07 | disposition home or self-care (01) ==
LOC: FER 16:35
DX: S90.02XA Contusion of left ankle, initial encounter (principal); S79.912A Unspecified injury of left hip, initial encounter; R22.42 Localized swelling, mass and lump, left lower limb; W11.XXXA Fall on and from ladder, initial encounter
CPT/HCPCS: 73552-TC-LT-FY; 73590-TC-LT-FY; 73610-TC-LT-FY; 73630-TC-LT; 93971-TC; 99284-25